=== PATIENT | male | born 1945 | race Caucasian/White ===

== ENCOUNTER 2017-02-09 12:03 | Inpatient (IN) | payer OTHER, MEDICARE ==
[~2017-02-09] VITALS: Ht 180.3 cm; Wt 90.7 kg
[~2017-02-09 12:03] MED LIST: ASPIRIN EC81 M1 PO; FUROSEMIDE40 M1 PO; METOPROLOL SUCC50 M2 PO; PRINIVIL20 M1 PO; ROCALTROL0.25 MC1 PO; SIMVASTATIN20 M2 PO; SODIUM BICARBO650 M1 PO; VITAMIN D31000 UNI1 PO
--- NOTE | 2017-02-09 12:10 | NUR ---
PT TO ED FOR C/C OF WATERY STOOLS X 1 WEEK "I THINK I HAVE A HEMORRHOID, I CONSTANTLY KEEP LEAKING WATERY STOOL AND WHEN I TRIED TO GO I CAN'T GO." PT DENIES NAUSEA OR VOMITING, BRB AND DARK RED BLOOD IN STOOLS A COUPLE OF DAYS AGO.
--- NOTE | 2017-02-09 12:31 | ED GI/GU/ABDOMINAL COMPLAINT ---
History of Present Illness General Chief Complaint: General Adult Stated Complaint: WEAKNESS, EXTREME WEIGHTLOSS, ABCESS RECTUM Source: patient Exam Limitations: poor historian Vital Signs & Intake/Output Vital Signs & Intake/Output Vital Signs Date Time Temp Pulse Resp B/P B/P Pulse O2 O2 Flow FiO2 Mean Ox Delivery Rate 02/09 1630 98.3 73 18 110/56 99 Room Air 02/09 1323 Room Air 02/09 1208 98.3 84 15 106/61 98 Room Air Room Air Allergies Coded Allergies: No Known Allergies (02/09/17) Triage Note: PT TO ED FOR C/C OF WATERY STOOLS X 1 WEEK "I THINK I HAVE A HEMORRHOID, I CONSTANTLY KEEP LEAKING WATERY STOOL AND WHEN I TRIED TO GO I CAN'T GO." PT DENIES NAUSEA OR VOMITING, BRB AND DARK RED BLOOD IN STOOLS A COUPLE OF DAYS AGO. Triage Nurses Notes Reviewed? yes Onset: Gradual Duration: getting worse Timing: recent history Quality/Severity: burning, severe Severity Numbers: 7 Radiation: no radiation Activities at Onset: none HPI: PT is a 70-year-old male with a history of long-standing tobacco use which he discontinued in 2014, hypertension, dyslipidemia, chronic kidney disease, chronic anemia secondary hyperparathyroidism, previous diastolic heart failure secondary to diastolic dysfunction from his long-standing hypertension with left ventricular hypertrophy who is a poor historian who presents emergency room with an unknown duration of rectal discomfort and pain. Patient states that he has not had a bowel movement in approximately 7-10 days. Patient also has complaint of decreased by mouth intake and weight loss. Patient does state that approximately 10 days ago he did have bright red blood with bowel movements however this has not stopped. Patient denies any fevers but does have chills. Denies any chest pain shortness of breath cough abdominal pain nausea vomiting dysuria hematuria. (MARITZA HERNANDEZ,IRAIDA) Reconcile Medications Aspirin (Ecotrin*) 81 MG TABLET.DR 1 TAB PO DAILY HEART/BLOOD (Reported) Calcitriol (Rocaltrol) 0.25 MCG CAPSULE 1 CAP PO DAILY SUPPLEMENT (Reported) Cholecalciferol (Vitamin D3) (Vitamin D3) 1,000 UNIT CAPSULE 1 CAP PO DAILY VITAMIN SUPPORT (Reported) Furosemide 40 MG TABLET 1 TAB PO Saturday DIURETIC (Reported) Lisinopril (Prinivil) 20 MG TABLET 1 TAB PO DAILY BP (Reported) Metoprolol Succinate 50 MG TAB.ER.24H 1.5 TAB PO DAILY BP (Reported) Simvastatin (Simvastatin*) 20 MG TABLET 1 TAB PO QPM CHOLESTEROL (Reported) Sodium Bicarbonate 650 MG TABLET 2 TAB PO DAILY ANTACID (Reported) (CHARLENE STANLEY,SHELBIE Dillard) Past History Travel History Traveled to [place] past 21 day No Medical History Any Pertinent Medical History? 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 No (IRAIDA AMIN) Review of Systems Review of Systems Constitutional: Reports: see HPI, chills. EENTM: Reports: no symptoms. Respiratory: Reports: no symptoms. Cardiovascular: Reports: no symptoms. GI: Reports: see HPI, constipation. Genitourinary: Reports: no symptoms. Musculoskeletal: Reports: no symptoms. Skin: Reports: see HPI. Neurological/Psychological: Reports: no symptoms. Hematologic/Endocrine: Reports: bleeding. Immunologic/Allergic: Reports: no symptoms. All Other Systems: Reviewed and Negative (IRAIDA AMIN) Physical Exam Physical Exam General Appearance: no apparent distress, alert, comfortable Gastrointestinal: normal bowel sounds, soft, non-tender, no organomegaly Rectal: normal rectal tone, heme negative stool, BROWN STOOL Comments: HEENT: Normal EENT exam Neck: Supple, no lymphadenopathy, normal range of motion without pain or tenderness Back: Nontender, no CVA tenderness Cardiovascular: Regular rate and rhythms no murmurs rubs or gallops, normal JVP Respiratory: Chest nontender. No respiratory distress.breath sounds clear to auscultation bilaterally Abdomen: Soft, nontender nondistended, no appreciable organomegaly. Normal bowel sounds. No ascites Extremity: No edema, no calf tenderness to palpation, normal and equal pulses. Neuro: Alert oriented x3, motor sensory normal, Skin: Noted perirectal approximate 10 cm in diameter of erythema warmth and tenderness with fluctuance noted no active discharge Psych: Mood and affect is normal, memory and judgment is normal. Core Measures ACS in differential dx? No Severe Sepsis Present: No Septic Shock Present: No (MARITZA HERNANDEZ,IRAIDA) Progress Differential Diagnosis: appendicitis, biliary colic, bowel obstruction, colon cancer, cholecystitis, diverticulitis, gastritis, hepatitis, hernia, hemorrhoids , ischemic bowel, inflamm bowel dis, pancreatitis, prostatitis, peptic ulcer, perforated viscous, pyelonephritis, SBO, urinary retention, urethritis, UTI/ pyelo, RECTAL ABSCESS, CELLULITIS Plan of Care: Orders Procedure Date/time Status Nothing by Mouth 02/10 B Active CBC WITHOUT DIFFERENTIAL 02/10 600 Active BASIC ELECTROLYTES PLUS BUN&CR 02/10 600 Active TRC EVALUATION (GEN) 02/09 1639 Active PT Evaluate & Treat 02/09 1639 Active Pathway - chart 02/09 1639 Active House Staff 02/09 1639 Active Code Status 02/09 1639 Active TYPE & SCREEN (NOT X-MATCH) 02/09 1639 Active Saline Lock 02/09 1601 Active Misc Message 02/09 1601 Active ED Holding Orders 02/09 1601 Active Vital Signs 02/09 1601 Active Activity/Ambulation 02/09 1601 Active Code Status 02/09 1601 Complete Admit to inpatient 02/09 1533 Active Patient Data 02/09 1533 Active EKG 02/09 1520 Active Intake & Output 02/09 1423 Active VIT D 25 HYDROXY 02/09 1317 Active URIC ACID 02/09 1317 Active THYROID STIMULATING HORMONE 02/09 1317 Active VITAMIN B12 02/09 1317 Active CULTURE,URINE 02/09 1308 Active BLOOD CULTURE 02/09 1308 Active URINALYSIS 02/09 1308 Complete PARTIAL THROMBOPLASTIN TIME 02/09 1308 Complete PROTHROMBIN TIME 02/09 1308 Complete LACTIC ACID 02/09 1308 Active COMPREHENSIVE METABOLIC PANEL 02/09 1308 Active CBC WITHOUT DIFFERENTIAL 02/09 1308 Complete TYPE & SCREEN (NOT X-MATCH) 02/09 1308 Complete XRY-WRIST 2 VIEWS LEFT 02/09 UNK Active Lab Add-on Test 02/09 UNK Active VTE Mechanical Prophylaxis 02/09 UNK Active Vital Signs 02/09 UNK Active Intake & Output 02/09 UNK Active Hemoccult 02/09 UNK Active Activity/Ambulation 02/09 UNK Active Current Medications Sig/Amy Start time Last Medication Dose Stop Time Status Admin Atorvastatin Calcium 10 MG 1700 02/10 1700 AC (Lipitor) Aspirin Buffered 81 MG DAILY 02/10 1000 AC (Ecotrin) Calcitriol 0.25 MCG DAILY 02/10 1000 AC (Rocaltrol 0.25 Mcg Cap) Cholecalciferol 1,000 IU DAILY 02/10 1000 AC (Vitamin D) Ampicillin Sodium/ 1,500 MG Q12H 02/10 0200 AC Sulbactam Sodium (Unasyn) Sodium Chloride 100 ML (Normal Saline 0.9%) Sodium Bicarbonate 325 MG 4 TIMES/DAY 02/09 1800 AC (Sodium Bicarb 325MG Tab) Acetaminophen 650 MG Q6P PRN 02/09 1630 AC (Tylenol) Acetaminophen 1,000 MG Q6P PRN 02/09 1630 AC (Ofirmev) Sodium Chloride 1,000 ML .Q20H 02/09 1630 AC (Normal Saline 0.9%) 02/10 1229 Laboratory Tests 02/09/17 1608: Lactic Acid Cancelled 02/09/17 1540: Urine Color YEL, Urine Clarity HAZY H, Urine pH 7.5, Ur Specific [place] 1.015, Urine Protein TRACE H, Urine Ketones NEG, Urine Nitrite NEG, Urine Bilirubin NEG, Urine Urobilinogen 0.2, Ur Leukocyte Esterase MOD H, Ur Microscopic SEDIMENT EXAMINED, Urine RBC 15-25 H, Urine WBC 5-10 H, Ur Epithelial Cells RARE, Urine Bacteria MOD H, Urine Hemoglobin MOD H, Urine Glucose NEG 02/09/17 1317: Anion Gap 13, Estimated GFR 15 L, BUN/Creatinine Ratio 19.0, Glucose 86, Lactic Acid 1.0, Uric Acid 14.2 H, Calcium 9.1, Total Bilirubin 0.4, AST 8 L, ALT 22, Alkaline Phosphatase 64, Total Protein 6.4, Albumin 2.8 L, Globulin 3.6, Albumin/Globulin Ratio 0.8 L, Vitamin B12 Pending, 25-OH Vitamin D Total Pending, TSH Pending, PT 15.0 H, INR 1.43 H, APTT 32, CBC w Diff NO MAN DIFF REQ, RBC 2.98 L, MCV 83.6, MCH 26.7 L, RDW 16.6 H, MPV 6.8 L, Gran % 74.6, Lymphocytes % 14.7 L, Monocytes % 8.3, Eosinophils % 1.7, Basophils % 0.7, Absolute Granulocytes 8.8 H, Absolute Lymphocytes 1.7, Absolute Monocytes 1.0 H, Absolute Eosinophils 0.2, Absolute Basophils 0.1, PUBS MCHC 32.0 L Microbiology 02/09 1540 URINE ROUT: Urine Culture - RECD 02/09 1327 BLOOD: Blood Culture - RECD 02/09 1320 BLOOD: Blood Culture - RECD Patient on initial examination has concerns of cellulitis and abscess of the rectal and perirectal region. Patient was administered prophylactic Unasyn in the ER. Patient resting comfortably at bedside however he is complaining of burning rectal pain patient was administered IV morphine Dr. Johnson was aware of patient's admission who advised me to consult colorectal and which I discussed patient with Dr. MEJIA in which she is aware of patient's admission and will consult. Patient will be admitted to medicine for concerns of cellulitis patient will be administered magnesium citrate for concerns of fecal impaction however at this time a Fleet enema would be contraindicated. Surgical PA also will consult patient (MARITZA HERNANDEZ,IRAIDA) Diagnostic Imaging: Viewed by Me: CT Scan. Radiology Impression: SEE COMMENTS Initial ED EK BPM, NSR Prior EKG: unchanged Comments: PATIENT: JOSE WRIGHT PRESENT AGE: 71 PATIENT ACCOUNT NO: [id number] : 44 LOCATION: [facility] ORDERING PHYSICIAN: IRAIDA HERNANDEZ SERVICE DATE: 02/09/17 EXAM TYPE: CAT - CT ABD & PELVIS W/O IV CONTRAS EXAMINATION: CT ABDOMEN AND PELVIS WITHOUT CONTRAST CLINICAL INFORMATION: Rectal abscess, cellulitis of rectum COMPARISON: 06/13/2011 CT scan TECHNIQUE: Multidetector volumetric imaging was performed from the superior aspect of the liver through the pubic symphysis. Sagittal and coronal reformatted images were obtained on the technologist's workstation. DLP: 373.58 mGy-cm FINDINGS: LUNG BASES: Limited images of lower thorax demonstrates linear elongated opacities in the right lower lobe with extension toward the pleural surface, similar to 2011 CT scan and can represent scar versus chronic atelectasis. The visualized lung bases are otherwise clear. The noncontrast images of the abdomen and pelvis demonstrate: LIVER, GALLBLADDER, AND BILIARY TREE: The liver is normal in size, shape, and attenuation. No biliary ductal dilatation is present. The gallbladder is unremarkable with no evidence of radiopaque gallstones, gallbladder wall thickening, or obvious pericholecystic inflammatory changes. PANCREAS: Unremarkable. SPLEEN: Unremarkable. ADRENAL GLANDS: Unremarkable. KIDNEYS AND URETERS: The kidneys are normal in size, shape. No hydronephrosis, hydroureter seen. No perinephric stranding. There is a 2.0 cm stone in the lower pole calyces of the right kidney without obstruction. It is unchanged. There is a 2.3 cm exophytic left renal cortical fluid density lesion, likely a cyst. It is increased in size. There is a 2.8 cm left renal cortical cyst in the mid part of the left kidney. It is increased in size. There is a 2.3 cm slightly heterogeneous hypoechoic dense lesion in the lower pole cortex of the left kidney. It is unchanged in size. It can represent a renal cyst as well. No left renal stone. BLADDER: Unremarkable. GASTROINTESTINAL TRACT: There is large amount of stool in the rectum with mild distention of the rectum, suggestive of fecal impaction. There is mild soft tissue stranding behind the rectum, in the presacral region, better seen on sagittal images 62. The rectal wall thickness is within normal limits. No definite perirectal abscess is seen. No extraluminal air. Mild to moderate diverticular disease of the sigmoid colon noted. No CT evidence of acute diverticulitis. The appendix is visualized and without evidence of acute appendicitis. The small bowel loops are not dilated. ABDOMINAL WALL: No significant hernia is appreciated. LYMPH NODES: Normal. VASCULAR: There is mild aneurysmal dilatation of the infrarenal abdominal aorta with maximal transverse diameter of 3.2 cm. It has increased from 3.1 cm in June 2011. Advanced atherosclerotic calcifications of the abdominal aorta and iliac arteries seen. PELVIC VISCERA: Unremarkable. OSSEOUS STRUCTURES: Degenerative changes of the lower lumbar spine predominantly involving the facet joints at L4-L5 and L5-S1 noted. IMPRESSION: The study is somehow limited for evaluation of proctitis/abscess due to lack of intravenous contrast. Presence of large amount of stool in the rectum with distention of the rectum up to 6 cm in transverse diameter suggest fecal impaction. There are mild inflammatory changes posterior to the rectum, in the presacral region. No perirectal abscess is seen. The rectal wall thickness is within normal limits. Right renal stone. Left renal cortical cysts. Atherosclerosis and mild aneurysmal dilatation of infrarenal abdominal aorta. DICTATED BY: FLORINDA DORANTES MD DATE/TIME DICTATED:02/09/171438 SKATE MAKER:NORMAN DATE/TIME TRANSCRIBED:02/09/171438 (IRAIDA AMIN) Departure Departure Disposition: STILL A PATIENT Condition: Stable Clinical Impression Primary Impression: Cellulitis of rectal area Secondary Impressions: Anemia, Chronic renal failure, Fecal impaction Referrals: MAEVE ALVARADO (PCP/Family) Departure Forms: Customer Survey General Discharge Information Admission Note Spoke With: LUCIANO STANLEY,BORIS Davenport Documentation of Exam: Documentation of any treatments & extenuating circumstances including Concerns Regarding Discharge (functional status, medication knowledge or non-compliance, living conditions, etc.) that warrant an admission rather than observation: [ Discussed patient with Dr. WOLF who agrees with general medicine admission for concerns of rectal/perirectal cellulitis constipation fecal impaction. Patient requires colorectal consultation, bowel promotion medication ,repeat labs, IV antibiotics and possible colonoscopy and GI consultation. Outpatient treatment at this time would be medically harmful] (IRAIDA AMIN) Psych Admission Note Psychiatric Admission: I have seen and evaluated JOSE WRIGHT SR. I have also reviewed all the pertinent lab results and diagnostic results. JOSE WRIGHT SR will be admitted to our inpatient Psychiatric unit for treatment and care. PA/PUBLIC HOUSING INTERVIEWER Co-Sign Statement Statement: ED Attending supervision documentation- [X] I saw and evaluated the patient. I have also reviewed all the pertinent lab results and diagnostic results. I agree with the findings and the plan of care as documented in the PA's/PUBLIC HOUSING INTERVIEWER's documentation. [X] I have reviewed the ED Record and agree with the PA's/PUBLIC HOUSING INTERVIEWER's documentation. [] Additions or exceptions (if any) to the PAs/PUBLIC HOUSING INTERVIEWER's note and plan are summarized below: [] (CHARLENE STANLEY,SHELBIE Dillard)
--- NOTE | 2017-02-09 13:21 | NUR ---
PT EVALUATED BY DAVID SALAS. BLOOD DRAWN AND SENT TO [facility]. IV EST RF G20.
[2017-02-09 13:32] LABS: ABSOLUTE BASOPHIL COUNT 0.1 /CUMM (0.0-0.2); ABSOLUTE EOSINOPHIL COUNT 0.2 /CUMM (0.0-0.7); ABSOLUTE GRANULOCYTE CT 8.8 /CUMM (1.4-6.5); ABSOLUTE LYMPH COUNT 1.7 /CUMM (1.2-3.4); BASOPHIL % 0.7 % (0.0-2.0); EOSINOPHIL % 1.7 % (0-5); GRANULOCYTE % 74.6 % (42.2-75.2); HEMATOCRIT 24.9 % (42-52); MEAN CORPUSCULAR HGB 26.7 PG (27.0-31.0); MEAN CORPUSCULAR VOLUME 83.6 FL (80.0-94.0); MEAN PLATELET VOLUME 6.8 FL (7.4-10.4); PLATELET COUNT 622 /CUMM (130-400); RBC DISTRIBUTION WIDTH 16.6 % (11.5-14.5); RED BLOOD CELL CT 2.98 /CUMM (4.70-6.10); WHITE BLOOD CELL COUNT 11.8 /CUMM (4.8-10.8)
--- NOTE | 2017-02-09 13:33 | NUR ---
PT MEDICATED WITH MORPHINE PER EMAR. NS INFUSING PER EMAR.
[2017-02-09 13:43] LABS: PTT 32 SEC (25-37)
--- NOTE | 2017-02-09 14:00 | NUR ---
PT TRANSPORTED OFF UNIT IN STABLE CONDITION TO CT
--- NOTE | 2017-02-09 14:13 | NUR ---
PT TRANSPORTED BACK TO IN STABLE CONDITION. MONITORING MAINTAINED
--- NOTE | 2017-02-09 14:24 | NUR ---
UNISYN INFUSING ORDERED.
--- NOTE | 2017-02-09 15:02 | CT SCAN REPORT ---
EXAMINATION: CT ABDOMEN AND PELVIS WITHOUT CONTRAST CLINICAL INFORMATION: Rectal abscess, cellulitis of rectum COMPARISON: 06/13/2011 CT scan TECHNIQUE: Multidetector volumetric imaging was performed from the superior aspect of the liver through the pubic symphysis. Sagittal and coronal reformatted images were obtained on the technologist's workstation. DLP: 373.58 mGy-cm FINDINGS: LUNG BASES: Limited images of lower thorax demonstrates linear elongated opacities in the right lower lobe with extension toward the pleural surface, similar to 2011 CT scan and can represent scar versus chronic atelectasis. The visualized lung bases are otherwise clear. The noncontrast images of the abdomen and pelvis demonstrate: LIVER, GALLBLADDER, AND BILIARY TREE: The liver is normal in size, shape, and attenuation. No biliary ductal dilatation is present. The gallbladder is unremarkable with no evidence of radiopaque gallstones, gallbladder wall thickening, or obvious pericholecystic inflammatory changes. PANCREAS: Unremarkable. SPLEEN: Unremarkable. ADRENAL GLANDS: Unremarkable. KIDNEYS AND URETERS: The kidneys are normal in size, shape. No hydronephrosis, hydroureter seen. No perinephric stranding. There is a 2.0 cm stone in the lower pole calyces of the right kidney without obstruction. It is unchanged. There is a 2.3 cm exophytic left renal cortical fluid density lesion, likely a cyst. It is increased in size. There is a 2.8 cm left renal cortical cyst in the mid part of the left kidney. It is increased in size. There is a 2.3 cm slightly heterogeneous hypoechoic dense lesion in the lower pole cortex of the left kidney. It is unchanged in size. It can represent a renal cyst as well. No left renal stone. BLADDER: Unremarkable. GASTROINTESTINAL TRACT: There is large amount of stool in the rectum with mild distention of the rectum, suggestive of fecal impaction. There is mild soft tissue stranding behind the rectum, in the presacral region, better seen on sagittal images 62. The rectal wall thickness is within normal limits. No definite perirectal abscess is seen. No extraluminal air. Mild to moderate diverticular disease of the sigmoid colon noted. No CT evidence of acute diverticulitis. The appendix is visualized and without evidence of acute appendicitis. The small bowel loops are not dilated. ABDOMINAL WALL: No significant hernia is appreciated. LYMPH NODES: Normal. VASCULAR: There is mild aneurysmal dilatation of the infrarenal abdominal aorta with maximal transverse diameter of 3.2 cm. It has increased from 3.1 cm in June 2011. Advanced atherosclerotic calcifications of the abdominal aorta and iliac arteries seen. PELVIC VISCERA: Unremarkable. OSSEOUS STRUCTURES: Degenerative changes of the lower lumbar spine predominantly involving the facet joints at L4-L5 and L5-S1 noted. IMPRESSION: The study is somehow limited for evaluation of proctitis/abscess due to lack of intravenous contrast. Presence of large amount of stool in the rectum with distention of the rectum up to 6 cm in transverse diameter suggest fecal impaction. There are mild inflammatory changes posterior to the rectum, in the presacral region. No perirectal abscess is seen. The rectal wall thickness is within normal limits. Right renal stone. Left renal cortical cysts. Atherosclerosis and mild aneurysmal dilatation of infrarenal abdominal aorta.
--- NOTE | 2017-02-09 15:11 | PN- General Surgery ---
Surgical Brief Attending Note Brief Attending Note: Patient seen and examined. He has extensive perirectal fistula, complex without abscess in need of emergent drainage. There is fecal impaction which should be addressed with enemas. There is moderate anemia with h/o blood in stool. He requires an extensive anorectal evaluation for which I will defer to Colorectal Surgery.
--- NOTE | 2017-02-09 16:02 | NUR ---
HOUSE STAFF AT BEDSIDE.
--- NOTE | 2017-02-09 16:07 | NUR ---
Emergency Dept UC Admit Note: To be admitted to [facility] by DR WOLF with RECTAL CELLULITIS as the diagnosis, to [facility] location. Nursing Statistical Modeler and admitting notified 02/09/17 at 1538 PT WILL GO TO ROOM 201-1
--- NOTE | 2017-02-09 16:45 | NUR ---
PT CONSUMED MAGNESIUM CITRATE ORDERED.
--- NOTE | 2017-02-09 16:49 | PN- Att Addend ---
Attending MD Review Statement Attending Statement Attending MD Statement: examined this patient, discuss w/resident/PA/RESEARCH CONSULTANT, agreed w/resident/PA/RESEARCH CONSULTANT, discussed with family, reviewed EMR data (avail), discussed w/ nursing Attending Assessment/Plan: Laboratory Tests 02/09/17 1608: Lactic Acid Cancelled 02/09/17 1540: Urine Color YEL, Urine Clarity HAZY H, Urine pH 7.5, Ur Specific [place] 1.015, Urine Protein TRACE H, Urine Ketones NEG, Urine Nitrite NEG, Urine Bilirubin NEG, Urine Urobilinogen 0.2, Ur Leukocyte Esterase MOD H, Ur Microscopic SEDIMENT EXAMINED, Urine RBC 15-25 H, Urine WBC 5-10 H, Ur Epithelial Cells RARE, Urine Bacteria MOD H, Urine Hemoglobin MOD H, Urine Glucose NEG 02/09/17 1317: Anion Gap 13, Estimated GFR 15 L, BUN/Creatinine Ratio 19.0, Glucose 86, Lactic Acid 1.0, Calcium 9.1, Total Bilirubin 0.4, AST 8 L, ALT 22, Alkaline Phosphatase 64, Total Protein 6.4, Albumin 2.8 L, Globulin 3.6, Albumin/ Globulin Ratio 0.8 L, PT 15.0 H, INR 1.43 H, APTT 32, CBC w Diff NO MAN DIFF REQ, RBC 2.98 L, MCV 83.6, MCH 26.7 L, RDW 16.6 H, MPV 6.8 L, Gran % 74.6, Lymphocytes % 14.7 L, Monocytes % 8.3, Eosinophils % 1.7, Basophils % 0.7, Absolute Granulocytes 8.8 H, Absolute Lymphocytes 1.7, Absolute Monocytes 1.0 H, Absolute Eosinophils 0.2, Absolute Basophils 0.1, PUBS MCHC 32.0 L Vital Signs Date Time Temp Pulse Resp B/P B/P Pulse O2 O2 Flow FiO2 Mean Ox Delivery Rate 02/09 1630 98.3 73 18 110/56 99 Room Air 02/09 1323 Room Air 02/09 1208 98.3 84 15 106/61 98 Room Air Room Air 71 yr old male with pmh of CKD stage 4 f/u with Dr Mistry, Anemia, HTN, HLD presented with chief complaint of constipation for 1.5 weeks , pain in anal area for 1-2 weeks, loss of appetite and wt loss going on for few months. History obtained from patinet and son. Pt was a smoker and quit 2 years ago, smoked 1 PPD for about 55 years. Admit for severe constipation and cellulitis perianal area. Seen by surgery. Will order bowel regimen for constipation. IV unasyn for cellulitis. Will get cxr given his smoking history and wt loss. Pt never had colonoscopy. Cannot do ct with contrast as pt has CKD. d/w pt and pts son at bedside the care plan.
--- NOTE | 2017-02-09 16:50 | Admission Certification ---
Admission Certification Certification Statement - As attending physician, I certify that at the time of - admission, based on clinical presentation, severity of - symptoms, need for further diagnostic testing and - therapeutic interventions, and risk of adverse outcomes - without in-hospital treatment, in my clinical assessment, - this patient requires an acute hospital stay for a minimum - of two nights or longer. I have also considered psychsocial - factors such as support system, advanced age, financial - issues, cognitive issues, and failed out-patient treatments, - past re-admission history, safety of patient, and lack of - compliance as applicable. Specific rationale supporting this admission is: cellulits perianal area, severe constipation.
--- NOTE | 2017-02-09 17:02 | NUR ---
REPORT GIVEN TO NELSON RN ON 2NB RM 201-1.
--- NOTE | 2017-02-09 17:09 | History & Physical ---
General Information and HPI MD Statement: I have seen and personally examined JOSE WRIGHT SR and documented this H&P. The patient is a 71 year old M who presented with a patient stated chief complaint of perirectal pain. Source of Information: patient, family Exam Limitations: clinical condition History of Present Illness: Mr. Wright is a 70-year-old gentleman with approximately [id number] smoking history, quit 2 years ago, hypertension, hyperlipidemia, chronic kidney disease- patient of Dr. Mistry, chronic anemia, stage II diastolic heart failure per echo done in 2010 who presents to [facility] ED with several month history of perirectal and rectal discomfort and pain, accompanied by blood per rectum, ranging anywhere from spotting of the underwear to bloodsoaked. About a month ago, patient started experiencing loose watery stools, denies any recent travel, no associated fevers or chills, nausea or vomiting. He further denied any sick contacts around him at that time or any outside consumption of food. The patient later started experiencing constipation, stating his last bowel movement was approximately 10 days ago. Patient is not the best informant, and part of his history was obtained from his son at bedside who lacked full insight into patient's daily activities. Additionally, patient has experienced worsening weakness over past several months, lack of appetite and reported weight loss. Of note, patient has never had colonoscopy in the past. He denies any B symptoms. He further denies any family history of malignancies. His primary reason for the visit to the ED was perirectal pain which he described as sharp and prolonged period of constipation. Other systems reviewed and negative, exceptions above. Allergies/Medications Allergies: Coded Allergies: No Known Allergies (02/09/17) Home Med list Aspirin (Ecotrin*) 81 MG TABLET.DR 1 TAB PO DAILY HEART/BLOOD (Reported) Calcitriol (Rocaltrol) 0.25 MCG CAPSULE 1 CAP PO DAILY SUPPLEMENT (Reported) Cholecalciferol (Vitamin D3) (Vitamin D3) 1,000 UNIT CAPSULE 1 CAP PO DAILY VITAMIN SUPPORT (Reported) Furosemide 40 MG TABLET 1 TAB PO Saturday DIURETIC (Reported) Lisinopril (Prinivil) 20 MG TABLET 1 TAB PO DAILY BP (Reported) Metoprolol Succinate 50 MG TAB.ER.24H 1.5 TAB PO DAILY BP (Reported) Simvastatin (Simvastatin*) 20 MG TABLET 1 TAB PO QPM CHOLESTEROL (Reported) Sodium Bicarbonate 650 MG TABLET 2 TAB PO DAILY ANTACID (Reported) Compliance With Home Meds: GOOD Past History Travel History Traveled to [place] past 21 day No Medical History Neurological: NONE EENT: NONE Cardiovascular: CHF, hypertension Respiratory: NONE Gastrointestinal: NONE Hepatic: NONE Renal: chronic kidney disease Musculoskeletal: NONE Psychiatric: NONE Endocrine: NONE Blood Disorders: NONE 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 Exam & Diagnostic Data Last 24 Hrs of Vital Signs/I&O Vital Signs Date Time Temp Pulse Resp B/P B/P Pulse O2 O2 Flow FiO2 Mean Ox Delivery Rate 02/09 1630 98.3 73 18 110/56 99 Room Air 02/09 1323 Room Air 02/09 1208 98.3 84 15 106/61 98 Room Air Room Air Intake & Output 02/09 1600 02/09 0800 02/09 0000 Intake Total 500 Output Total Balance 500 Intake, IV 500 Patient 200 lb Weight Weight Reported by Patient Measurement Method Physical Exam General Appearance Alert, Oriented X3, Cooperative Skin perirectal area examined and noted for areas of erythema, with tenderness but without warmth, skin breakdowns noted. Neck Supple, No JVD Cardiovascular Regular Rate, Normal S1, Normal S2 Lungs Clear to Auscultation, Normal Air Movement Abdomen Normal Bowel Sounds, Soft, No Tenderness Neurological Strength at 5/5 X4 Ext Extremities No Cyanosis, No Edema, clubbing noted bilaterally Last 24 Hrs of Labs/Matt: Laboratory Tests 02/09/17 1608: Lactic Acid Cancelled 02/09/17 1540: Urine Color YEL, Urine Clarity HAZY H, Urine pH 7.5, Ur Specific [place] 1.015, Urine Protein TRACE H, Urine Ketones NEG, Urine Nitrite NEG, Urine Bilirubin NEG, Urine Urobilinogen 0.2, Ur Leukocyte Esterase MOD H, Ur Microscopic SEDIMENT EXAMINED, Urine RBC 15-25 H, Urine WBC 5-10 H, Ur Epithelial Cells RARE, Urine Bacteria MOD H, Urine Hemoglobin MOD H, Urine Glucose NEG 02/09/17 1317: Anion Gap 13, Estimated GFR 15 L, BUN/Creatinine Ratio 19.0, Glucose 86, Lactic Acid 1.0, Calcium 9.1, Total Bilirubin 0.4, AST 8 L, ALT 22, Alkaline Phosphatase 64, Total Protein 6.4, Albumin 2.8 L, Globulin 3.6, Albumin/ Globulin Ratio 0.8 L, PT 15.0 H, INR 1.43 H, APTT 32, CBC w Diff NO MAN DIFF REQ, RBC 2.98 L, MCV 83.6, MCH 26.7 L, RDW 16.6 H, MPV 6.8 L, Gran % 74.6, Lymphocytes % 14.7 L, Monocytes % 8.3, Eosinophils % 1.7, Basophils % 0.7, Absolute Granulocytes 8.8 H, Absolute Lymphocytes 1.7, Absolute Monocytes 1.0 H, Absolute Eosinophils 0.2, Absolute Basophils 0.1, PUBS MCHC 32.0 L Microbiology 02/09 1540 URINE ROUT: Urine Culture - RECD 02/09 1327 BLOOD: Blood Culture - RECD 02/09 1320 BLOOD: Blood Culture - RECD Assessment/Plan Assessment: 71-year-old gentleman with extensive past history, presents to the ED with extensive perirectal fistula, no evidence of abscess on CT, found to have fecal impaction and severe constipation, to be admitted to general medicine floors for resolution of his constipation and possible perirectal cellulitis. 1. Perirectal pain: Proctitis may be a possibility. Less likely cellulitis, given lack of fevers/high white count and lack of warmth in the suspicious erythematous area. Quite possibly could represent anorectal fistula, which requires surgical intervention, alert CRsurgery. CT scan demonstrative of fecal impaction, for which the patient will receive tap water or soapsuds enemas. If lack of resolution of constipation, patient may benefit from sucralfate enemas. We'll continue to monitor. Given extensive fecal impaction, possibility of stercoral colitis cannot be entirely ruled out. Patient reportedly has had episodes of bleeding and has evidence of anemia on labs. Not uncommon for fecal impaction to cause stercoral ulceration, bleeding and anemia, continue antibiotic treatment, renally dosed at 1.5 gm q6 - which provides appropriate coverage for cellulitis too. Stool softeners and enemas. Type and screen. Pain control with Tylenol. Consult with colorectal surgery. 2. Blood loss anemia: Type and screen. Check Hemoccult. Patient is a candidate for age appropriate cancer screening, which includes colonoscopy( patient has never had one). 3. Left wrist pain: Rule out fracture-left wrist x-ray. Check uric acid, normal calcium noted. May present bony pains secondary to hyperparathyroidism related to chronic kidney disease. 4. Chronic smoker, quit 2 years ago: Qualifies for low-dose CT for lung cancer screening. Proceed with portable chest x-ray for now, CT as an outpatient. 5. Weakness: Multifactorial. Decreased by mouth intake, persistent diarrhea, non-conducive home living environment and iron deficiency-blood loss. Check vitamin D, vitamin B12, TSH. Replenish as needed. Encourage by mouth intake. Careful fluid 1 baG, given history of stage II diastolic dysfunction and CKD5. 6. Thrombocytosis: Likely reactive, in response to blood loss anemia. Continue to monitor. Holidng Lasix and anti-hypertensives. Full code. Mechanical-given anemia and possibility of blood loss. Full liquid diet. Nothing by mouth at midnight, until colorectal evaluation. As Ranked By This Provider Problem List: 1. Fecal impaction Core Measures/Miscellaneous Acute Coronary Syndrome ACS Diagnosis: No Cerebrovascular Accident CVA/TIA Diagnosis: No Congestive Heart Failure CHF Diagnosis: No VTE (View Protocol) VTE Risk Factors: Acute medical illness, Age > 40, Immobility, paresis No [facility] VTE prophylaxis d/t: No contraindications No VTE Pharm Prophylaxis d/t: Active bleeding (Possible) VTE Diagnosis: No VTE Type: NONE VTE Confirmed by (Test): NONE Sepsis (View Protocol) Severe Sepsis Present: No Septic Shock Septic Shock Present: No Miscellaneous Documentation Attending Case Discussed With: LUCIANO STANLEY,BORIS Davenport Primary Care Physician: MAEVE ALVARADO Patient sees these Specialists Dr. Mistry Level of Patient Care: General Medicine
--- NOTE | 2017-02-09 17:18 | RADIOLOGY REPORT ---
EXAMINATION: XR PORTABLE CHEST CLINICAL INFORMATION: Smoking, rule out malignancy COMPARISON: 04/03/2016 TECHNIQUE: Portable frontal view of the chest was obtained. FINDINGS: I would recommend CT chest to exclude a lesion. This is a portable study film. There is right basilar markings which may well be chronic. Small superimposed infiltrate cannot be excluded. Left lung is grossly clear. There is no effusion. No failure. Prominence of the central mediastinum may be due to portable study. IMPRESSION: No convincing evidence for an acute process. To exclude lung malignancy in a patient with high risk I would recommend CT of the chest. This may be done low-dose noncontrast
--- NOTE | 2017-02-09 17:32 | NUR ---
TRANSPORT HERE FOR PT
[2017-02-09 17:38] VITALS: BP 106/60
--- NOTE | 2017-02-09 19:09 | NUR ---
1740 PATIENT ARRIVED TO FLOOR ALERT AND ORIENTED X 3. ON ROOM AIR. DENIES SHORTNESS OF BREATH VITAL SIGNS STABLE. DENIES CHEST PAIN. + PULSES. DENIES NUMBNESS/TINGLING SKIN C/D/I. INDEP W/ SUPERVISION. BOWEL SOUNDS AUDIBLE NO DISCOMFORT NOTED AT THIS TIME. BED LOW AND LOCKED. CALL LIGHT WITHIN REACH. WILL CONTINUE TO MONITOR
--- NOTE | 2017-02-09 20:13 | Cons- General Surgery ---
General Information and HPI Consulting Request Date of Consult: 02/09/17 Requested By: BORIS WOLF MD Reason for Consult: Perianal cellulitis Fecal impaction Source of Information: patient, medical records Exam Limitations: poor historian History of Present Illness: Patient complains of a few weeks history of worsening perinal discomfort. He denies any fevers or chills. Upon further questioning he admits to worsening appetite that he attributes to perianal pain and approximately 50 lbs weight loss. He also states that he occasionally has blood in stool. He has never had colonoscopy. Allergies/Medications Allergies: Coded Allergies: No Known Allergies (02/09/17) Home Med List: Aspirin (Ecotrin*) 81 MG TABLET.DR 1 TAB PO DAILY HEART/BLOOD (Reported) Calcitriol (Rocaltrol) 0.25 MCG CAPSULE 1 CAP PO DAILY SUPPLEMENT (Reported) Cholecalciferol (Vitamin D3) (Vitamin D3) 1,000 UNIT CAPSULE 1 CAP PO DAILY VITAMIN SUPPORT (Reported) Furosemide 40 MG TABLET 1 TAB PO Saturday DIURETIC (Reported) Lisinopril (Prinivil) 20 MG TABLET 1 TAB PO DAILY BP (Reported) Metoprolol Succinate 50 MG TAB.ER.24H 1.5 TAB PO DAILY BP (Reported) Simvastatin (Simvastatin*) 20 MG TABLET 1 TAB PO QPM CHOLESTEROL (Reported) Sodium Bicarbonate 650 MG TABLET 2 TAB PO DAILY ANTACID (Reported) Current Medications: Current Medications Sig/Amy Start time Last Medication Dose Route Stop Time Status Admin Acetaminophen 650 MG Q6P PRN 02/09 1630 AC PO Acetaminophen 1,000 MG Q6P PRN 02/09 1630 AC IV Ampicillin Sodium/ 1,500 MG Q12H 02/10 0200 AC Sulbactam Sodium IV Sodium Chloride 100 ML Ampicillin Sodium/ 0 .STK-MED ONE 02/09 1421 DC Sulbactam Sodium .ROUTE Ampicillin Sodium/ 1,500 MG ONCE ONE 02/09 1400 DC 02/09 Sulbactam Sodium IV 02/09 1429 1423 Sodium Chloride 100 ML Aspirin Buffered 81 MG DAILY 02/10 1000 AC PO Atorvastatin Calcium 10 MG 1700 02/10 1700 AC PO Calcitriol 0.25 MCG DAILY 02/10 1000 AC PO Cholecalciferol 1,000 IU DAILY 02/10 1000 AC PO Magnesium Citrate 300 ML ONE ONE 02/09 1530 DC 02/09 PO 02/09 1531 1557 Morphine Sulfate 0 .STK-MED ONE 02/09 1333 DC .ROUTE Morphine Sulfate 4 MG ONCE ONE 02/09 1315 DC 02/09 IV 02/09 1316 1333 Sodium Bicarbonate 325 MG 4 TIMES/DAY 02/09 1800 AC 02/09 PO 1841 Sodium Chloride 1,000 ML .Q20H 02/09 1630 AC 02/09 IV 02/10 1229 1841 Sodium Chloride 500 ML BOLUS ONE 02/09 1315 DC 02/09 IV 02/09 1414 1333 Past History Medical History Blood Transfusion Hx: No Neurological: NONE EENT: NONE Cardiovascular: CHF, hypertension Respiratory: NONE Gastrointestinal: constipation Hepatic: NONE Renal: chronic kidney disease Musculoskeletal: NONE Psychiatric: NONE Endocrine: NONE Blood Disorders: NONE 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 Home Services at Home: None Primary Language: Tajik Smoking Status: Former Smoker ETOH Use: denies use Illicit Drug Use: denies illicit drug use Review of Systems Review of Systems Constitutional: Reports: unexplained weight loss. Denies: chills, fever. EENTM: Denies: blurred vision, double vision, visual changes, eye pain, eye drainage. Cardiovascular: Denies: chest pain, edema, palpitations. Respiratory: Denies: cough, hemoptysis, orthopnea. GI: Reports: constipation, bloody stool. Denies: abdominal pain, distention, bowel incontinence, melena, vomiting. Genitourinary: Denies: discharge, pain. Musculoskeletal: Denies: no symptoms. Skin: Denies: lesions, moles, rash. Neurological/Psychological: Denies: anxiety, confusion, emotional problems, headache, numbness, tingling, tremors. Hematologic/Endocrine: Denies: bruising, bleeding. Immunologic/Allergic: Denies: splenectomy, HIV/AIDS, lymphadenopathy. Exam & Diagnostic Data Vital Signs and I&O Vital Signs Date Time Temp Pulse Resp B/P B/P Pulse O2 O2 Flow FiO2 Mean Ox Delivery Rate 02/09 1738 97.9 72 18 106/60 97 Room Air 02/09 1630 98.3 73 18 110/56 99 Room Air 02/09 1323 Room Air 02/09 1208 98.3 84 15 106/61 98 Room Air Room Air Intake & Output 02/09 1600 02/09 0800 02/09 0000 02/08 1600 02/08 0800 02/08 0000 Intake Total 500 Output Total Balance 500 Intake, IV 500 Patient 200 lb Weight Weight Reported by Patient Measurement Method Physical Exam General Appearance: no apparent distress, alert, awake, comfortable Head: atraumatic, normal appearance, poor oral hygiene Eyes: Bilateral: PERRL, EOMI. Ears, Nose, Throat: hearing grossly normal, moist mucus membranes Neck: supple, full range of motion Respiratory: normal breath sounds, chest non-tender, no respiratory distress, quiet respiration Cardiovascular: regular rate/rhythm Gastrointestinal: soft, non-tender, no organomegaly Rectal: fecal impaction perianal cellulitis and drainage Back: normal range of motion Extremities: normal inspection, normal range of motion, no edema Neurologic/Psych: awake, alert, oriented x 3 Cranial Nerves: normal speech, PERRL Skin: normal color Last 24 Hours of Labs: Laboratory Tests 02/09 02/09 1608 1540 Chemistry Lactic Acid Cancelled Urines Urine Color (YEL,AMB,STR) YEL Urine Clarity (CLEAR) HAZY H Urine pH (5.0 - 8.0) 7.5 Ur Specific [place] (1.001 - 1.035) 1.015 Urine Protein (NEG,<30 MG/DL) TRACE H Urine Ketones (NEG) NEG Urine Nitrite (NEG) NEG Urine Bilirubin (NEG) NEG Urine Urobilinogen (0.1 - 1.0 EU/dl) 0.2 Ur Leukocyte Esterase (NEG) MOD H Ur Microscopic SEDIMENT EXAMINED Urine RBC (0 - 5 /HPF) 15-25 H Urine WBC (0 - 2 /HPF) 5-10 H Ur Epithelial Cells (NONE,FEW) RARE Urine Bacteria (NEG/NONE) MOD H Urine Hemoglobin (NEG) MOD H Urine Glucose (N MG/DL) NEG 02/09 1317 Chemistry Sodium (137 - 145 mmol/L) 140 Potassium (3.5 - 5.1 mmol/L) 4.6 Chloride (98 - 107 mmol/L) 109 H Carbon Dioxide (22 - 30 mmol/L) 17 L Anion Gap (5 - 16) 13 BUN (9 - 20 mg/dL) 74 H Creatinine (0.7 - 1.2 mg/dL) 3.9 H Estimated GFR (>60 ml/min) 15 L BUN/Creatinine Ratio (7 - 25 %) 19.0 Glucose (65 - 99 mg/dL) 86 Lactic Acid (0.7 - 2.1 mmol/L) 1.0 Uric Acid (3.5 - 8.5 mg/dL) 14.2 H Calcium (8.4 - 10.2 mg/dL) 9.1 Total Bilirubin (0.2 - 1.3 mg/dL) 0.4 AST (17 - 59 U/L) 8 L ALT (21 - 72 U/L) 22 Alkaline Phosphatase (< 127 U/L) 64 Total Protein (6.3 - 8.2 g/dL) 6.4 Albumin (3.5 - 5.0 g/dL) 2.8 L Globulin (1.9 - 4.2 gm/dL) 3.6 Albumin/Globulin Ratio (1.1 - 2.2 %) 0.8 L Vitamin B12 (239 - 931 pg/mL) 322 25-OH Vitamin D Total (30 - 100 ng/ml) Pending TSH (0.270 - 4.200 uIU/mL) 4.070 Coagulation PT (9.4 - 12.5 SEC) 15.0 H INR (0.90 - 1.17) 1.43 H APTT (25 - 37 SEC) 32 Hematology CBC w Diff NO MAN DIFF REQ WBC (4.8 - 10.8 /CUMM) 11.8 H RBC (4.70 - 6.10 /CUMM) 2.98 L Hgb (14.0 - 18.0 G/DL) 8.0 L Hct (42 - 52 %) 24.9 L MCV (80.0 - 94.0 FL) 83.6 MCH (27.0 - 31.0 PG) 26.7 L RDW (11.5 - 14.5 %) 16.6 H Plt Count (130 - 400 /CUMM) 622 H MPV (7.4 - 10.4 FL) 6.8 L Gran % (42.2 - 75.2 %) 74.6 Lymphocytes % (20.5 - 51.1 %) 14.7 L Monocytes % (1.7 - 9.3 %) 8.3 Eosinophils % (0 - 5 %) 1.7 Basophils % (0.0 - 2.0 %) 0.7 Absolute Granulocytes (1.4 - 6.5 /CUMM) 8.8 H Absolute Lymphocytes (1.2 - 3.4 /CUMM) 1.7 Absolute Monocytes (0.10 - 0.60 /CUMM) 1.0 H Absolute Eosinophils (0.0 - 0.7 /CUMM) 0.2 Absolute Basophils (0.0 - 0.2 /CUMM) 0.1 PUBS MCHC (33.0 - 37.0 G/DL) 32.0 L Imaging Results: CT A/P: IMPRESSION: The study is somehow limited for evaluation of proctitis/abscess due to lack of intravenous contrast. Presence of large amount of stool in the rectum with distention of the rectum up to 6 cm in transverse diameter suggest fecal impaction. There are mild inflammatory changes posterior to the rectum, in the presacral region. No perirectal abscess is seen. The rectal wall thickness is within normal limits. Right renal stone. Left renal cortical cysts. Atherosclerosis and mild aneurysmal dilatation of infrarenal abdominal aorta. Assessment/Plan Assessment/Plan A 71 year-old man with multiple comorbidities, including stage IV renal disease, chronic anemia, heme occult positive stools, and HTN was admitted through ER with perianal cellulitis and fecal impation. He is somewhat poor historian, but admits to weight loss, malaise, and poor appetite over the last few months. Of note, he never had colonoscopy. - Recommend keeping patient on clears until impaction resolves - Patient refused manual disimpaction at the bedside stating that it is too uncomfortable - Recommend soap suds enemas qid and gentle BRNUA each time to break up hard stool and stimulate BM - Cont. broad spectrum IV coverage - Patient's perianal tracts are spontaneously draining, recommend sitz baths tid - Will re-evaluate tomorrow for BM and resolution of perianal cellulitis. If there is no improvement, may take patient to OR on Saturday for I&D and disimpaction - Patient will need GI workup as outpatient for anemia and heme positive stools Problem List: 1. GI bleed 2. Acute on chronic renal insufficiency 3. Anemia 4. Cellulitis of rectal area 5. Fecal impaction Consult Acknowledgment - Thank you for your consult request.
--- NOTE | 2017-02-09 21:48 | RADIOLOGY REPORT ---
EXAMINATION: XR WRIST, LEFT CLINICAL INFORMATION: Pain COMPARISON: None TECHNIQUE: Limited 2 views of the left wrist. 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 No convincing evidence for fracture or dislocation on this limited two-view study. IMPRESSION: No acute finding. 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
[2017-02-09 23:59] VITALS: BP 118/66
--- NOTE | 2017-02-10 01:23 | NUR ---
PT HAD LARGE LQUID BROWN INCONTINENT STOOL X2, THEN HAD LARGE BLOODY LIGUID STOOL. PT REPORTS FEELING FINE OTHER THAN STOOOL INCONTINENCE. BP 128/64, HR 86, T 98.8F, O2 95% ON ROOM AIR. DR CALEB HECTOR NOTIFIED OF BLOODY STOOLS. WILL HOLD MIRALAX, SENNA, AND ENEMA PER DR HECTOR. PT HAS REDNESS AND SWELLING AND TENDERNESS TO PERIRECTAL AREA. WILL CONTINUE TO MONITOR PATIENT.
[2017-02-10 06:40] VITALS: BP 110/65
--- NOTE | 2017-02-10 08:00 | NUR ---
NSG NOTE: PATIENT HAD LARGE BLOODY BM THIS AM; VSS; PATIENT ASYMTOMPTOMATIC; AL AWARE AT THIS TIME; WILL CONT TO MONITOR
[2017-02-10 08:41] LABS: ABSOLUTE BASOPHIL COUNT 0.1 /CUMM (0.0-0.2); ABSOLUTE EOSINOPHIL COUNT 0.3 /CUMM (0.0-0.7); ABSOLUTE GRANULOCYTE CT 7.6 /CUMM (1.4-6.5); ABSOLUTE LYMPH COUNT 1.9 /CUMM (1.2-3.4); ABSOLUTE MONOCYTE COUNT 0.8 /CUMM (0.10-0.60); BASOPHIL % 0.8 % (0.0-2.0); EOSINOPHIL % 2.8 % (0-5); GRANULOCYTE % 70.9 % (42.2-75.2); HEMATOCRIT 22.7 % (42-52); MEAN CORPUSCULAR HGB 27.3 PG (27.0-31.0); MEAN CORPUSCULAR HGB CONC 32.6 G/DL (33.0-37.0); MEAN CORPUSCULAR VOLUME 83.9 FL (80.0-94.0); MEAN PLATELET VOLUME 7.1 FL (7.4-10.4); PLATELET COUNT 580 /CUMM (130-400); RBC DISTRIBUTION WIDTH 16.1 % (11.5-14.5); RED BLOOD CELL CT 2.71 /CUMM (4.70-6.10); WHITE BLOOD CELL COUNT 10.7 /CUMM (4.8-10.8)
--- NOTE | 2017-02-10 09:28 | NUR ---
PHYSICAL THERAPY- CONSULT RECEIVED, CHART REVIEWED. PT CURRENTLY INDEPENDENT. ?SURGICAL INTERVENTION FOR THIS ADMISSION. SHOULD MOBILITY STATUS CHANGE DURING COURSE OF ADMISSION, PLEASE RECONSULT. RECOMMEND CONT AMB W/ NSG STAFF TO MAINTAIN MOBILITY.
--- NOTE | 2017-02-10 11:38 | PN- Housestaff ---
Subjective Follow-up For: Rectal cellulitis/fistulas Subjective: I have personally seen and examined the patient today.Patient looks pale but denies any fever, chills, SOB, Chest pain or numbness/ tingling. Reports being uncomfortable because of the fecal impaction but denies any pain. Review of Systems Constitutional: Denies: see HPI. Objective Last 24 Hrs of Vital Signs/I&O Vital Signs Date Time Temp Pulse Resp B/P B/P Pulse O2 O2 Flow FiO2 Mean Ox Delivery Rate 02/10 0640 97.5 71 20 110/65 99 Room Air 02/09 2359 97.7 73 20 118/66 98 Room Air 02/09 2019 Room Air 02/09 1738 97.9 72 18 106/60 97 Room Air 02/09 1630 98.3 73 18 110/56 99 Room Air Intake & Output 02/10 1600 02/10 0800 02/10 0000 Intake Total 400 400 Output Total 1175 300 Balance -775 100 Intake, IV 400 Intake, Oral 0 400 Number 4 1 Bowel Movements Output, Stool 500 Output, Urine 675 300 Patient 200 lb Weight Physical Exam General Appearance: Alert, Oriented X3, Cooperative, No Acute Distress Other Physical Findings: Skin No Rashes HEENT Atraumatic, PERRLA, EOMI Neck Supple, No JVD Cardiovascular Regular Rate, Normal S1, Normal S2, No Murmurs Lungs Clear to Auscultation, Normal Air Movement Abdomen Normal Bowel Sounds, Soft, slight tenderness in LLQ, No Hepatospenomegaly, No Masses Neurological Normal Gait, Normal Speech, Strength at 5/5 X4 Ext, Normal Tone, Sensation Intact Extremities No Clubbing, No Cyanosis, No Edema, Normal Pulses, Normal Capillary Refill Vascular Normal Pulses Current Medications: Current Medications Sig/Amy Start time Last Medication Dose Route Stop Time Status Admin Acetaminophen 650 MG Q6P PRN 02/09 1630 AC 02/10 PO 0658 Acetaminophen 1,000 MG Q6P PRN 02/09 1630 AC IV Ampicillin Sodium/ 1,500 MG Q12H 02/10 0200 AC 02/10 Sulbactam Sodium IV 0145 Sodium Chloride 100 ML Aspirin Buffered 81 MG DAILY 02/10 1000 AC PO Atorvastatin Calcium 10 MG 1700 02/10 1700 AC PO Calcitriol 0.25 MCG DAILY 02/10 1000 AC 02/10 PO 0902 Cholecalciferol 1,000 IU DAILY 02/10 1000 AC 02/10 PO 0902 Ibuprofen 400 MG .STK-MED ONE 02/10 2008 DC PO 02/09 2009 Magnesium Citrate 300 ML ONE ONE 02/09 1530 DC 02/09 PO 02/09 1531 1557 Polyethylene Glycol 17 GM DAILY 02/10 004 AC PO Senna 187 MG AT BEDTIME 02/10 004 AC PO Sodium Bicarbonate 325 MG 4 TIMES/DAY 02/09 1800 AC 02/10 PO 0902 Sodium Chloride 1,000 ML .Q20H 02/09 1630 DC 02/09 IV 02/10 1229 1841 Last 24 Hrs of Lab/Matt Results Last 24 Hrs of Labs/Mics: Laboratory Tests 02/10/17 0605: Anion Gap 9, Estimated GFR 16 L, BUN/Creatinine Ratio 18.7, CBC w Diff NO MAN DIFF REQ, RBC 2.71 L, MCV 83.9, MCH 27.3, RDW 16.1 H, MPV 7.1 L, Gran % 70.9, Lymphocytes % 18.0 L, Monocytes % 7.5, Eosinophils % 2.8, Basophils % 0.8, Absolute Granulocytes 7.6 H, Absolute Lymphocytes 1.9, Absolute Monocytes 0.8 H, Absolute Eosinophils 0.3, Absolute Basophils 0.1, PUBS MCHC 32.6 L 02/09/17 1608: Lactic Acid Cancelled 02/09/17 1540: Urine Color YEL, Urine Clarity HAZY H, Urine pH 7.5, Ur Specific [place] 1.015, Urine Protein TRACE H, Urine Ketones NEG, Urine Nitrite NEG, Urine Bilirubin NEG, Urine Urobilinogen 0.2, Ur Leukocyte Esterase MOD H, Ur Microscopic SEDIMENT EXAMINED, Urine RBC 15-25 H, Urine WBC 5-10 H, Ur Epithelial Cells RARE, Urine Bacteria MOD H, Urine Hemoglobin MOD H, Urine Glucose NEG Microbiology 02/09 1540 URINE ROUT: Urine Culture - RES Assessment/Plan Assessment: 71-year-old gentleman with extensive past history, presents to the ED with extensive perirectal fistula, no evidence of abscess on CT, found to have fecal impaction and severe constipation, to be admitted to general medicine floors for resolution of his constipation and possible perirectal cellulitis. Perirectal pain: Proctitis may be a possibility. Less likely cellulitis, given lack of fevers/high white count and lack of warmth in the suspicious erythematous area. Quite possibly could represent anorectal fistula, which requires surgical intervention, alert CRsurgery. CT scan demonstrative of fecal impaction, for which the patient received tap water/soapsuds enemas. Had a bowel movement along with BRBPR. We'll continue to monitor. Will continue antibiotic treatment, renally dosed at 1.5 gm q6 - which provides appropriate coverage for cellulitis too. Stool softeners and enemas. - Pain control with Tylenol. -Colorectal surgery saw and after discussing with the son, planned to operate on him. 2. Blood loss anemia: Patient had a drop in H&H after having BRBPR. Trasfused 1 unit after type and screen. Patient is a candidate for age appropriate cancer screening, which includes colonoscopy(patient has never had one). 3. Left wrist pain: Rule out fracture-left wrist x-ray. Check uric acid, normal calcium noted. May present bony pains secondary to hyperparathyroidism related to chronic kidney disease. 4. Chronic smoker, quit 2 years ago: Qualifies for low-dose CT for lung cancer screening. Proceed with portable chest x-ray for now, CT as an outpatient. 5. Weakness: Multifactorial. Decreased by mouth intake, persistent diarrhea, non-conducive home living environment and iron deficiency-blood loss. Encourage by mouth intake. Careful fluid 1 baG, given history of stage II diastolic dysfunction and CKD5. 6. Thrombocytosis: Likely reactive, in response to blood loss anemia. Continue to monitor. Holidng Lasix and anti-hypertensives. Full code. Mechanical-given anemia and possibility of blood loss. Full liquid diet. Nothing by mouth at midnight, until colorectal evaluation. Problem List: 1. Fecal impaction 2. Cellulitis of rectal area 3. Anemia Pain Ratin Pain Location: Perirectal area Pain Goal: Pain 4 or less Pain Plan: Pain pathway Tomorrow's Labs & Rationales: CBC (ABLA), BEP (High Cr)
--- NOTE | 2017-02-10 12:15 | PN- Att Addend ---
Attending MD Review Statement Attending Statement Attending MD Statement: examined this patient, discuss w/resident/PA/MARKETING COMMUNICATIONS LEADER, agreed w/resident/PA/MARKETING COMMUNICATIONS LEADER, reviewed EMR data (avail), discussed w/nursing Attending Assessment/Plan: Laboratory Tests 02/10/17 0605: Anion Gap 9, Estimated GFR 16 L, BUN/Creatinine Ratio 18.7, CBC w Diff NO MAN DIFF REQ, RBC 2.71 L, MCV 83.9, MCH 27.3, RDW 16.1 H, MPV 7.1 L, Gran % 70.9, Lymphocytes % 18.0 L, Monocytes % 7.5, Eosinophils % 2.8, Basophils % 0.8, Absolute Granulocytes 7.6 H, Absolute Lymphocytes 1.9, Absolute Monocytes 0.8 H, Absolute Eosinophils 0.3, Absolute Basophils 0.1, PUBS MCHC 32.6 L 02/09/17 1608: Lactic Acid Cancelled 02/09/17 1540: Urine Color YEL, Urine Clarity HAZY H, Urine pH 7.5, Ur Specific [place] 1.015, Urine Protein TRACE H, Urine Ketones NEG, Urine Nitrite NEG, Urine Bilirubin NEG, Urine Urobilinogen 0.2, Ur Leukocyte Esterase MOD H, Ur Microscopic SEDIMENT EXAMINED, Urine RBC 15-25 H, Urine WBC 5-10 H, Ur Epithelial Cells RARE, Urine Bacteria MOD H, Urine Hemoglobin MOD H, Urine Glucose NEG 02/09/17 1317: Anion Gap 13, Estimated GFR 15 L, BUN/Creatinine Ratio 19.0, Glucose 86, Lactic Acid 1.0, Uric Acid 14.2 H, Calcium 9.1, Total Bilirubin 0.4, AST 8 L, ALT 22, Alkaline Phosphatase 64, Total Protein 6.4, Albumin 2.8 L, Globulin 3.6, Albumin/Globulin Ratio 0.8 L, Vitamin B12 322, 25-OH Vitamin D Total 32.1, TSH 4.070, PT 15.0 H, INR 1.43 H, APTT 32, CBC w Diff NO MAN DIFF REQ, RBC 2.98 L , MCV 83.6, MCH 26.7 L, RDW 16.6 H, MPV 6.8 L, Gran % 74.6, Lymphocytes % 14.7 L, Monocytes % 8.3, Eosinophils % 1.7, Basophils % 0.7, Absolute Granulocytes 8.8 H, Absolute Lymphocytes 1.7, Absolute Monocytes 1.0 H, Absolute Eosinophils 0.2, Absolute Basophils 0.1, PUBS MCHC 32.0 L Vital Signs Date Time Temp Pulse Resp B/P B/P Pulse O2 O2 Flow FiO2 Mean Ox Delivery Rate 02/10 0640 97.5 71 20 110/65 99 Room Air 02/09 2359 97.7 73 20 118/66 98 Room Air 02/09 2019 Room Air 02/09 1738 97.9 72 18 106/60 97 Room Air 02/09 1630 98.3 73 18 110/56 99 Room Air 02/09 1323 Room Air 71 yr old male with pmh of CKD stage 4 f/u with Dr Mistry, Anemia, HTN, HLD presented with chief complaint of constipation for 1.5 weeks , pain in anal area for 1-2 weeks, loss of appetite and wt loss going on for few months. History obtained from patinet and son. Pt was a smoker and quit 2 years ago, smoked 1 PPD for about 55 years. Admit for severe constipation and cellulitis perianal area. Seen by surgery. Constipation resolved- had BM last night and also had some BRBPR. IV unasyn for cellulitis. Colorectal surgery saw and will d/w son the surgical plan today. Anemia- secondary to GI bleed- will transfuse 1 U PRBC today and will get GI consult. CXR done - no large masses seen. will need outpt low dose CT scan of chest.
[2017-02-10 14:20] VITALS: BP 122/64
--- NOTE | 2017-02-10 14:54 | NUR ---
NSG NOTE LATE ENTRY: PATIENT LEFT FLOOR AT APPROX 1430 VIA STRETCHER TO OR ACCOMPANIED BY DISTRIBUTION; PATIENT A/OX3; RA; VSS; PRBC COMPLETED AT 1412, VS CHECKED AND DOCUMENTED ON SHEET; PATIENT HAD SMALL EPISODE OF BRIGHT RED BLOOD FROM RECTUM BEFORE TAKEN TO OR NO CLOTS NOTED; PATIENT CLEANED AND PLACED ON INCONTINENCE PADS;
--- NOTE | 2017-02-10 16:09 | Operative Report ---
Operative/Inv Procedure Report Surgery Date: 02/10/17 Name of Procedure: 1. Fecal disimpaction Incision and drainage of perianal abscesses and fistulae Pre-Operative Diagnosis: 1. Chronic anemia 2. Rectal bleeding 3. Fecal impaction 4. Perianal abscesses/fistulae Post-Operative Diagnosis: same Estimated Blood Loss: scant, episode of substantial low GI bleed while in OR Surgeon/Chief Of Pediatric Urology: BOB RENTERIA MD Anesthesia: local monitored anesthesi Drains: 4 setons placed Specimens: fistula tract Complications: none Condition: stable to RR Operative Indication: Patient is a 71-year-old man who sports historian and somewhat noncompliant with his medical care. Patient presented and was admitted through the emergency room yesterday with multiple vague complaints, including perianal discomfort, constipation, and multiple episodes of low GI bleed. All of note, over the patient was Hemoccult positive in the ER, he did not have any blood in the rectal vault any episodes of rectal bleeding until this afternoon when taken to the operating room. According to his family, he also lost 50 pounds in the last few months and has been having poor appetite. Patient is being taken to the operating room for fecal disimpaction and incision and drainage of perianal abscesses. Operative/Procedure Note Note: Patient was taken to the operating room and placed in the supine position on the operating table. Anesthesia was established by the anesthesia team. Patient was repositioned in the lithotomy position with legs in candy canes. At that point the patient had substantial low GI bleed. He remained hemodynamically stable. Additional red blood cells were ordered to be brought to the operating room. Blood clots were evacuated. The timeout was carried out I proceeded with fecal disimpaction, removing a large hard stool ball from the rectal vault. There were additional blood clots more proximal to this to there was no additional bleeding throughout the procedure. The perineum was prepped and draped in the standard surgical fashion. Approximately 15 mL of half percent Marcaine with epinephrine were administered to the perianal skin. There was cellulitis and multiple subcutaneous fistulous tracts. None of them appeared to extend within the anal canal. 2 of the fistulous tracts one on the right side another on the left side were unroofed and curettaged. Additional fistulous openings were connected with setons. Toprol for setons worst placed 2 on the right 2 on the left. All those tracts and small pockets of abscesses were copiously irrigated. The sponge and instrument counts were correct in the end of the procedure. Patient was wakened up and taken to recovery room in stable condition. Findings: Multiple perianal subcutaneous fistulous tacts without apparent extension to the anal canal Low GI bleed Discharge Disposition: Critical Care Unit Additional Comments: GI was contacted. Patient will be getting bowel prep today for colonoscopy tomorrow. Recommend sitz baths 2-3 times daily for perianal debridement and hygiene
--- NOTE | 2017-02-10 18:42 | NUR ---
RECVD PT FROM PACU APPROX 1730. PT DROWSY/O X 3. ON 2L, 100% LUNGS CLEAR. PLACED ON RA, 98%. SR-SB 54-60'S. BP 90'S-110. ABDOMEN SOFT W HPERACTIVE BS W FLATUS. NAUSEA WITH SMALL AMONT OF CLR VOMIT ON ARRIVAL. SUBSIDED W/O INTERVENTION. PT IS NPO. AWAITING GI CONSULTATION. BUTTOCKS HAS LARGE ABD DRESSING WITH SMALL AMT OF SS DRAINAGE. BUTTOCKS/COCCYX AREA EXPOSED IS PINK, BLANCHABLE W 2 PINHOLES IN SKIN. SECONDARY PIV INSERTED, PIVOS PLACED ON BOTH LINES, ICU BUNDLE AND CBC OBTAINED AND SENT. PT ORIENTED TO ROOM AND POC. DENIES PAIN AT THIS TIME AND REMAINS DROWSEY EASILY AROUSABLE.
[2017-02-10 18:46] LABS: ABSOLUTE BASOPHIL COUNT 0 /CUMM (0.0-0.2); ABSOLUTE EOSINOPHIL COUNT 0.2 /CUMM (0.0-0.7); ABSOLUTE GRANULOCYTE CT 8.3 /CUMM (1.4-6.5); ABSOLUTE LYMPH COUNT 2.1 /CUMM (1.2-3.4); ABSOLUTE MONOCYTE COUNT 0.7 /CUMM (0.10-0.60); BASOPHIL % 0.2 % (0.0-2.0); GRANULOCYTE % 73.6 % (42.2-75.2); HEMATOCRIT 23.1 % (42-52); MEAN CORPUSCULAR HGB 26.7 PG (27.0-31.0); MEAN CORPUSCULAR HGB CONC 32.2 G/DL (33.0-37.0); MEAN CORPUSCULAR VOLUME 83.1 FL (80.0-94.0); MEAN PLATELET VOLUME 6.9 FL (7.4-10.4); PLATELET COUNT 497 /CUMM (130-400); RBC DISTRIBUTION WIDTH 17.9 % (11.5-14.5); RED BLOOD CELL CT 2.78 /CUMM (4.70-6.10); WHITE BLOOD CELL COUNT 11.3 /CUMM (4.8-10.8)
--- NOTE | 2017-02-10 19:17 | Event Note ---
Event Note Event Note: pt went to or for disimpaction with h and h of 7.4 and 23.1. Pt transferred to icu for intra operative blood loss. GI called and will follow up
--- NOTE | 2017-02-10 19:29 | NUR ---
H/H 7.4/23.1, 2 U PRBC ORDERED. 1ST UNIT INITIATED (#3). DR MARTINEZ TO BEDSIDE TO ASSESS PT. ORIGINAL SURGICAL DRESSING PULLED DOWN FOR MD TO ASSESS. AREA WAS CLEAN WITH SMALL AMT OF SS DRAINAGE TO DRESSING. NEW DRESSING; FLUFF/ABD APPLIED. PT REPORTS MINIMAL DISCOMFORT.
--- NOTE | 2017-02-10 19:40 | Cons- Gastroenterology ---
General Information and HPI Consulting Request Date of Consult: 02/10/17 Requested By: BOB RENTERIA MD Reason for Consult: Lower GI bleed Source of Information: patient, family, old records Exam Limitations: no limitations History of Present Illness: Patient is a 71-year-old man who is a poor historian. The following information is obtained from his son. Patient lives with his ex- on the third floor. Patient stopped driving 10 years ago and was reasonably mobile up to 3 years ago going to the local election clerk store 2 by small items. Approximately 2-3 years ago he stopped doing that and has been essentially limited to his apartment. Son describes that his father does get out of bed most days but then stays sitting in a chair for almost the entire day. This general decline over the last 4-5 years has been accentuated by further decrease in mobility over the last 4-5 months, and a visible loss and weight. Patient has a [id number] smoking history, quit 2 years ago, hypertension, hyperlipidemia, chronic kidney disease-patient of Dr. Mistry, chronic anemia, stage II diastolic heart failure per echo done in 2010 who presents to [facility] ED with several month history of perirectal and rectal discomfort and pain, accompanied by blood per rectum, ranging anywhere from spotting of the underwear to bloodsoaked. Approximately a month ago, patient started experiencing loose watery stools, denies any recent travel, no associated fevers or chills, nausea or vomiting. He further denied any sick contacts around him at that time or any outside consumption of food. The patient later started experiencing constipation, stating his last bowel movement was approximately 10 days ago. Patient is not the best informant, and part of his history was obtained from his son at bedside who lacked full insight into patient's daily activities. Additionally, patient has experienced worsening weakness over past several months, lack of appetite and reported weight loss. Of note, patient has never had colonoscopy in the past. He denies any B symptoms. He further denies any family history of malignancies. Patient was taken to the OR today. Patient was positioned in the lithotomy position and had substantial low GI bleed. Proceeded with fecal disimpaction, removing a large hard stool ball from the rectal vault. There were additional blood clots more proximal to this to there was no additional bleeding throughout the procedure. The perineum was prepped and draped in the standard surgical fashion. Approximately 15 mL of half percent Marcaine with epinephrine were administered to the perianal skin. There was cellulitis and multiple subcutaneous fistulous tracts. None of them appeared to extend within the anal canal. 2 of the fistulous tracts one on the right side another on the left side were unroofed and curettaged. Additional fistulous openings were connected with setons. Toprol for setons worst placed 2 on the right 2 on the left. All those tracts and small pockets of abscesses were copiously irrigated. Allergies/Medications Allergies: Coded Allergies: No Known Allergies (02/09/17) Home Med List: Aspirin (Ecotrin*) 81 MG TABLET.DR 1 TAB PO DAILY HEART/BLOOD (Reported) Calcitriol (Rocaltrol) 0.25 MCG CAPSULE 1 CAP PO DAILY SUPPLEMENT (Reported) Cholecalciferol (Vitamin D3) (Vitamin D3) 1,000 UNIT CAPSULE 1 CAP PO DAILY VITAMIN SUPPORT (Reported) Furosemide 40 MG TABLET 1 TAB PO Saturday DIURETIC (Reported) Lisinopril (Prinivil) 20 MG TABLET 1 TAB PO DAILY BP (Reported) Metoprolol Succinate 50 MG TAB.ER.24H 1.5 TAB PO DAILY BP (Reported) Simvastatin (Simvastatin*) 20 MG TABLET 1 TAB PO QPM CHOLESTEROL (Reported) Sodium Bicarbonate 650 MG TABLET 2 TAB PO DAILY ANTACID (Reported) Past History Travel History Traveled to [place] past 21 day No Medical History Blood Transfusion Hx: No Neurological: NONE EENT: NONE Cardiovascular: CHF, hypertension Respiratory: NONE Gastrointestinal: constipation Hepatic: NONE Renal: chronic kidney disease Musculoskeletal: NONE Psychiatric: NONE Endocrine: NONE Blood Disorders: NONE 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 Home Services at Home: None Primary Language: Greenlandic Smoking Status: Former Smoker ETOH Use: denies use Illicit Drug Use: denies illicit drug use Review of Systems Review of Systems: No chest pain shortness of breath palpitations abdominal discomfort. Patient complains of perineal soreness but not severe pain. Exam & Diagnostic Data Vital Signs and I&O Vital Signs Date Time Temp Pulse Resp B/P B/P Pulse O2 O2 Flow FiO2 Mean Ox Delivery Rate 02/10 1420 98.1 80 16 122/64 98 Room Air 02/10 0640 97.5 71 20 110/65 99 Room Air 02/09 2359 97.7 73 20 118/66 98 Room Air 02/09 2019 Room Air Intake & Output 02/10 0400 02/09 0400 02/08 1600 02/08 0400 Intake Total 1150 400 500 Output Total 1600 300 Balance -450 100 500 Intake, IV 1150 500 Intake, Oral 0 400 Number 6 1 Bowel Movements Output, Stool 500 Output, Urine 1100 300 Patient 200 lb 200 lb Weight Weight Reported by Patient Measurement Method General Appearance Alert, Oriented X3, Cooperative Skin perirectal area examined and noted for areas of erythema, with tenderness but without warmth, skin breakdowns noted. Neck Supple, No JVD Cardiovascular Regular Rate, Normal S1, Normal S2 Lungs Clear to Auscultation, Normal Air Movement Abdomen Normal Bowel Sounds, Soft, No Tenderness Neurological Strength at 5/5 X4 Ext Extremities No Cyanosis, No Edema, clubbing noted bilaterally The entire perineum extending posteriorly up to the coccyx is discolored and bruised.. There is a 3 inch incision at approximately 11 o'clock position. A smaller 1 inch incision at the 2 o'clock position and further incisions at 5 O' clock. 7 O'clock. 9 O'clock.. There is also a break in the skin at approximately 6 O'clock. No active bleeding. Assessment/Plan Assessment/Recommendations: In summary we have a 71-year-old man who has been relatively immobile for the last 3 years and particularly over the last 4 months. He has been sitting in a chair for almost the entire day for weeks. He has had significant weight loss over the last few weeks, and then rectal bleeding as documented above. Patient reveals significantly bruised perineum which today has had multiple drainage incisions performed due to the presence of abscesses and fistulae. There is no sign of active bleeding at present. Patient has never had any endoscopic procedures per his son. My preference would be to allow the perineum to heal before proceeding with a prep which is bound to result in soiling of fresh fistula drainage sites. It is likely that the patient will not have further significant lower GI bleeding if patient does have recurrence of significant lower GI bleeding then we will be forced to perform a colonoscopy to identify the site of bleeding thank you for the consultation we will follow with you. Consult Acknowledgment - Thank you for your consult request.
[2017-02-10 20:00] VITALS: BP 92/50
--- NOTE | 2017-02-10 22:31 | PN- General Surgery ---
Subjective Subjective: Post op check: Patient tolerated procedure and was transferred to intensive care unit for monitoring post operatively. He experienced a substantial lower GI bleed in the intraoperative period and states that presently he feels weak. He has been getting prbc transfused. He feels that his pain is controlled presently, he states that it only hurts when he moves too much. He denies chest pain, shortness of breath and difficulty breathing. He denies nausea and vomitting. Objective Vital Signs and I&Os Vital Signs Date Time Temp Pulse Resp B/P B/P Pulse O2 O2 Flow FiO2 Mean Ox Delivery Rate 02/11 2000 100 Room Air 02/11 2000 97.2 58 18 92/50 100 Room Air 02/10 1420 98.1 80 16 122/64 98 Room Air 02/10 0640 97.5 71 20 110/65 99 Room Air 02/09 2359 97.7 73 20 118/66 98 Room Air Intake & Output 02/10 1600 02/10 0800 02/10 0000 / 1600 02/09 0800 02/09 0000 Intake Total 750 400 400 500 Output Total 425 1175 300 Balance 325 -775 100 500 Intake, IV 750 400 500 Intake, Oral 0 400 Number 2 4 1 Bowel Movements Output, Stool 500 Output, Urine 425 675 300 Patient 200 lb 200 lb Weight Weight Reported by Patient Measurement Method Physical Exam: General: Alert and oriented x3, no acute distress Cardiac: R R R, s1s2 Pulm: Non-labored respiratory effort, bilateral sounds cta Abdomen: Non-tender, non -distended Extremities: Moves all extremities, distal sensation intact, bilateral calves soft and non-tender Surgical site: Lauro-anal, dressing dry and intact, no residual lower GI bleed noted since intraop Assessment/Plan Assessment/Plan This is a 71 year old male who was brought to or today for disimpaction of anal vault and i&d of lauro-anal abscess -SITZ spray to perianal area 2-3 x per day -Keep dressing clean and dry -Follow up GI consult -Follow up am labs -Will D/W Dr. Wilson
[2017-02-11] VITALS: BP 110/60
--- NOTE | 2017-02-11 00:23 | NUR ---
PT AWAKE AND ALERT, DENIES PAIN AT THIS TIME. UNIT OF PC STARTED, MONITORED FOR ADVERSE REACTION. NO BM NOTED SO FAR. NSR 60'S, MANUAL BP 110/60. SATURATION 99% ON RA, LUNGS SOUND CLEAR.
[2017-02-11 05:48] LABS: ABSOLUTE BASOPHIL COUNT 0 /CUMM (0.0-0.2); ABSOLUTE EOSINOPHIL COUNT 0.3 /CUMM (0.0-0.7); ABSOLUTE LYMPH COUNT 1.5 /CUMM (1.2-3.4); ABSOLUTE MONOCYTE COUNT 0.5 /CUMM (0.10-0.60); BASOPHIL % 0.4 % (0.0-2.0); EOSINOPHIL % 3.6 % (0-5); GRANULOCYTE % 72.5 % (42.2-75.2); MEAN CORPUSCULAR HGB 26.8 PG (27.0-31.0); MEAN CORPUSCULAR HGB CONC 32.6 G/DL (33.0-37.0); MEAN CORPUSCULAR VOLUME 82.3 FL (80.0-94.0); MEAN PLATELET VOLUME 6.9 FL (7.4-10.4); PLATELET COUNT 443 /CUMM (130-400); RBC DISTRIBUTION WIDTH 17.3 % (11.5-14.5); RED BLOOD CELL CT 3.47 /CUMM (4.70-6.10); WHITE BLOOD CELL COUNT 8.3 /CUMM (4.8-10.8)
[2017-02-11 05:51] LABS: HEMATOCRIT 28.5 % (42-52)
[2017-02-11 05:52] LABS: PT 13.9 SEC (9.4-12.5)
--- NOTE | 2017-02-11 06:36 | PN- CRCU ---
Subjective HPI/Critical Care Issues: I saw the patient at bedside. He is afebrile, hemodynamically stable and saturating well on room air. alert, oriented x3. no active complaints. No overnight events. Patient is on clear liquids Objective Current Medications: Current Medications Sig/Amy Start time Last Medication Dose Route Stop Time Status Admin Acetaminophen 1,000 MG .STK-MED ONE 02/10 1427 DC IV 02/10 1428 Acetaminophen 650 MG Q6P PRN 02/09 1630 AC 02/10 PO 0658 Acetaminophen 1,000 MG Q6P PRN 02/09 1630 AC IV Ampicillin Sodium/ 1,500 MG Q12H 02/11 0700 AC 02/11 Sulbactam Sodium IV 0638 Sodium Chloride 100 ML Ampicillin Sodium/ 1,500 MG Q12H 02/10 0200 DC 02/10 Sulbactam Sodium IV 1900 Sodium Chloride 100 ML Aspirin Buffered 81 MG DAILY 02/10 1000 DC PO Atorvastatin Calcium 10 MG 1700 02/10 1700 DC PO Calcitriol 0.25 MCG DAILY 02/10 1000 DC 02/10 PO 0902 Cholecalciferol 1,000 IU DAILY 02/10 1000 DC 02/10 PO 0902 Fentanyl Citrate 100 MCG .STK-MED ONE 02/10 1427 DC IM 02/10 1428 Hydromorphone HCl 2 MG .STK-MED ONE 02/10 1608 DC IM 02/10 1609 Ketamine HCl 50 MG .STK-MED ONE 02/10 1428 DC IM 02/10 1429 Midazolam HCl 2 MG .STK-MED ONE 02/10 1428 DC IM 02/10 1429 Polyethylene Glycol 17 GM DAILY 02/10 0045 AC 02/11 PO 1052 Senna 187 MG AT BEDTIME 02/10 0045 AC PO Sodium Bicarbonate 325 MG 4 TIMES/DAY 02/09 1800 AC 02/11 PO 1051 Vital Signs & I&O Last 24 Hrs of Vitals and I&O: Vital Signs Date Time Temp Pulse Resp B/P B/P Pulse O2 O2 Flow FiO2 Mean Ox Delivery Rate 02/11 0400 97 Room Air 02/11 0000 99 Room Air 02/11 0000 97.8 64 18 110/60 99 Room Air 02/10 2000 100 Room Air 02/10 2000 97.2 58 18 92/50 100 Room Air 02/10 1420 98.1 80 16 122/64 98 Room Air Intake & Output 02/11 1600 02/11 0800 02/11 0000 Intake Total 525 770 Output Total 650 350 Balance -125 420 Intake, Blood 300 Product Intake, IV 225 770 Number 0 Bowel Movements Output, Urine 650 350 Patient 200 lb Weight Exam General Appearance: well developed/nourished, no apparent distress, alert, awake , anxious, comfortable Head: atraumatic, normal appearance Ears, Nose, Throat: normal ENT inspection Neck: normal inspection, supple Respiratory: normal breath sounds Cardiovascular: regular rate/rhythm Abdomen: normal bowel sounds (bowel sounds sluggish) Back: normal inspection Extremities: normal inspection, normal capillary refill Neurologic/Psychiatric: awake, alert Skin: intact, normal color Results Last 24 Hrs of Lab Results: Laboratory Tests 02/11/17 0600: Sodium Cancelled, Potassium Cancelled, Chloride Cancelled, Carbon Dioxide Cancelled, Anion Gap Cancelled, BUN Cancelled, Creatinine Cancelled, BUN/ Creatinine Ratio Cancelled, CBC w Diff Cancelled, WBC Cancelled, RBC Cancelled, Hgb Cancelled, Hct Cancelled, MCV Cancelled, MCH Cancelled, RDW Cancelled, Plt Count Cancelled, MPV Cancelled, PUBS MCHC Cancelled 02/11/17 0500: Anion Gap 10, Estimated GFR 17 L, Glucose 73, Calcium 8.4, Phosphorus 4.9 H, Magnesium 2.9 H, Total Bilirubin 0.8, AST 8 L, ALT 21, Albumin 2.3 L, PT 13.9 H, INR 1.33 H, CBC w Diff NO MAN DIFF REQ, RBC 3.47 L, MCV 82.3, MCH 26.8 L, RDW 17.3 H, MPV 6.9 L, Gran % 72.5, Lymphocytes % 17.5 L, Monocytes % 6.0, Eosinophils % 3.6, Basophils % 0.4, Absolute Granulocytes 6.0, Absolute Lymphocytes 1.5, Absolute Monocytes 0.5, Absolute Eosinophils 0.3, Absolute Basophils 0, PUBS MCHC 32.6 L 02/10/17 1900: CBC w Diff Cancelled, WBC Cancelled, RBC Cancelled, Hgb Cancelled, Hct Cancelled , MCV Cancelled, MCH Cancelled, RDW Cancelled, Plt Count Cancelled, MPV Cancelled, PUBS MCHC Cancelled 02/10/17 1835: Anion Gap 11, Estimated GFR 18 L, Glucose 117 H, Calcium 8.1 L, Phosphorus 5.0 H, Magnesium 2.8 H, Total Bilirubin 0.9, AST 9 L, ALT 23, Albumin 2.2 L, CBC w Diff NO MAN DIFF REQ, RBC 2.78 L, MCV 83.1, MCH 26.7 L, RDW 17.9 H, MPV 6.9 L, Gran % 73.6, Lymphocytes % 18.3 L, Monocytes % 5.9, Eosinophils % 2.0, Basophils % 0.2, Absolute Granulocytes 8.3 H, Absolute Lymphocytes 2.1, Absolute Monocytes 0.7 H, Absolute Eosinophils 0.2, Absolute Basophils 0, PUBS MCHC 32.2 L Impression/Plan Impression/Plan Impression/Plan: 71 od gentleman with 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 2 units of PRBC transfused. Hemoglobin today is 9.3. Plan: 1) S/P perirectal fistula repair Post op-DAY 1 * folllow SITZ spray to perianal area 2-3 x per day * Keep dressing clean and dry. * Patient is on day 2 Unasyn surgery consult: Advised to continue * SITZ spray to perianal area 2-3 x per day * Keep dressing clean and dry * Follow up GI consult, consider feeding pt today * Follow up am labs * Will D/W Dr. Kerns GI consult: * Advised to continue clear diet. * To check CBCs twice and maintain H&H more than 7/2 * To Consider bowel regimen, although defer to surgery given recent findings/ manipulation and and inform if recurrent hematochezia may consider bowel preparation and colonoscopy at that time. 2) chronic anemia * 4 units of PRBC transfused since admission * His hemoglobin today is 9.3,hematocrit of 28.5 * Patient is doing fine. No dyspnea, orthopnea. * Check CBCs twice daily.
--- NOTE | 2017-02-11 06:52 | PN- General Surgery ---
See Addendum Subjective Subjective: No acute overnight events reported, no additional bleeding. No chest pain, shortness of breath and difficulty breathing. No nausea and vomitting. Objective Vital Signs and I&Os Vital Signs Date Time Temp Pulse Resp B/P B/P Pulse O2 O2 Flow FiO2 Mean Ox Delivery Rate 02/11 0400 97 Room Air 02/11 0000 99 Room Air 02/11 0000 97.8 64 18 110/60 99 Room Air 02/10 2000 100 Room Air 02/10 2000 97.2 58 18 92/50 100 Room Air 02/10 1420 98.1 80 16 122/64 98 Room Air Intake & Output 02/11 0800 02/11 0000 02/10 1600 02/10 0800 02/10 0000 02/09 1600 Intake Total 525 770 750 400 400 500 Output Total 650 631 736 1285 300 Balance -125 420 325 -775 100 500 Intake, Blood 300 Product Intake, IV 225 770 750 400 500 Intake, Oral 0 400 Number 0 2 4 1 Bowel Movements Output, Stool 500 Output, Urine 650 350 425 675 300 Patient 200 lb 200 lb Weight Weight Reported by Patient Measurement Method Physical Exam: General: Alert and oriented x3, no acute distress Cardiac: RRR, s1s2 Pulm: C T A bilaterally Abdomen: non-tender, non-distended Extremities: Moves all extremities, distal sensation intact, calves soft and non-tender Surgical site: Vessel loops, skin edges approximated, scant dark blood noted on dressing, no evidence of active rectal bleeding Assessment/Plan Assessment/Plan This is a 71 year old male who was brought to or today for disimpaction of anal vault and i&d of lauro-anal abscess -SITZ spray to perianal area 2-3 x per day -Keep dressing clean and dry -Follow up GI consult, consider feeding pt today -Follow up am labs -Will D/W Dr. Wilson
--- NOTE | 2017-02-11 11:35 | PN- Att Addend ---
Attending MD Review Statement Attending Statement Attending MD Statement: examined this patient, discuss w/resident/PA/MANAGER NEWS, agreed w/resident/PA/MANAGER NEWS, reviewed EMR data (avail), discussed w/nursing Attending Assessment/Plan: Laboratory Tests 02/11/17 0600: Sodium Cancelled, Potassium Cancelled, Chloride Cancelled, Carbon Dioxide Cancelled, Anion Gap Cancelled, BUN Cancelled, Creatinine Cancelled, BUN/ Creatinine Ratio Cancelled, CBC w Diff Cancelled, WBC Cancelled, RBC Cancelled, Hgb Cancelled, Hct Cancelled, MCV Cancelled, MCH Cancelled, RDW Cancelled, Plt Count Cancelled, MPV Cancelled, PUBS MCHC Cancelled 02/11/17 0500: Anion Gap 10, Estimated GFR 17 L, Glucose 73, Calcium 8.4, Phosphorus 4.9 H, Magnesium 2.9 H, Total Bilirubin 0.8, AST 8 L, ALT 21, Albumin 2.3 L, PT 13.9 H, INR 1.33 H, CBC w Diff NO MAN DIFF REQ, RBC 3.47 L, MCV 82.3, MCH 26.8 L, RDW 17.3 H, MPV 6.9 L, Gran % 72.5, Lymphocytes % 17.5 L, Monocytes % 6.0, Eosinophils % 3.6, Basophils % 0.4, Absolute Granulocytes 6.0, Absolute Lymphocytes 1.5, Absolute Monocytes 0.5, Absolute Eosinophils 0.3, Absolute Basophils 0, PUBS MCHC 32.6 L 02/10/17 1900: CBC w Diff Cancelled, WBC Cancelled, RBC Cancelled, Hgb Cancelled, Hct Cancelled , MCV Cancelled, MCH Cancelled, RDW Cancelled, Plt Count Cancelled, MPV Cancelled, PUBS MCHC Cancelled 02/10/17 1835: Anion Gap 11, Estimated GFR 18 L, Glucose 117 H, Calcium 8.1 L, Phosphorus 5.0 H, Magnesium 2.8 H, Total Bilirubin 0.9, AST 9 L, ALT 23, Albumin 2.2 L, CBC w Diff NO MAN DIFF REQ, RBC 2.78 L, MCV 83.1, MCH 26.7 L, RDW 17.9 H, MPV 6.9 L, Gran % 73.6, Lymphocytes % 18.3 L, Monocytes % 5.9, Eosinophils % 2.0, Basophils % 0.2, Absolute Granulocytes 8.3 H, Absolute Lymphocytes 2.1, Absolute Monocytes 0.7 H, Absolute Eosinophils 0.2, Absolute Basophils 0, PUBS MCHC 32.2 L Vital Signs Date Time Temp Pulse Resp B/P B/P Pulse O2 O2 Flow FiO2 Mean Ox Delivery Rate 02/11 0400 97 Room Air 02/11 0000 99 Room Air 02/11 0000 97.8 64 18 110/60 99 Room Air 02/11 2000 100 Room Air 02/11 2000 97.2 58 18 92/50 100 Room Air 02/10 1420 98.1 80 16 122/64 98 Room Air Pt seen and examined at bedside Pt with perianal fistula and severe consitpation with fecal impaction s/p disimpaction and repair of fisutla and I & D of abscess yesterday on 02/10- perioperative lower GI bleed and so patient was transferred to ICU for close monitoring. Pt doing ok,GI consult appreciated. Monitor H/h q12h for now. If stable will consider transferring back to [facility]. d/w pt the care plan.
--- NOTE | 2017-02-11 12:41 | PN- Gastroenterology ---
Assessment/Plan Assessment/Recommendations: Lower GI bleed, ceased. Anemia, improved after transfusion of 4 units of packed red blood cells. Vital signs are stable. Differential diagnosis is large and includes hemorrhoidal, stercoral ulceration, neoplasm, etc. Constipation/fecal impaction, status post disimpaction Recommendations * Continue clear liquid diet for now * Check CBC twice daily * Maintain hemoglobin/hematocrit at greater than 7/21 * Await colorectal surgery follow-up * Consider bowel regimen, although defer to surgery given recent findings/ manipulation * Please call with recurrent hematochezia; may consider bowel preparation and colonoscopy at that time Subjective Subjective: The patient has not had a bowel movement today, although he has passed flatus. There has been no blood per rectum per RN. He has had some perirectal pain with movement. He denies abdominal pain, nausea, fever. Objective Vital Signs and I&Os Vital Signs Date Time Temp Pulse Resp B/P B/P Pulse O2 O2 Flow FiO2 Mean Ox Delivery Rate 02/11 0400 97 Room Air 02/11 0000 99 Room Air 02/11 0000 97.8 64 18 110/60 99 Room Air 02/10 2000 100 Room Air 02/10 2000 97.2 58 18 92/50 100 Room Air 02/10 1420 98.1 80 16 122/64 98 Room Air Intake & Output 02/11 1600 02/11 0400 02/10 1600 02/10 0400 02/09 1600 02/09 0400 Intake Total 128 777 9319 400 500 Output Total 992 805 8853 300 Balance -125 420 -450 100 500 Intake, Blood 300 Product Intake, IV 156 633 8842 500 Intake, Oral 0 400 Number 0 6 1 Bowel Movements Output, Stool 500 Output, Urine 370 169 2530 300 Patient 200 lb 200 lb 200 lb Weight Weight Reported by Patient Measurement Method Physical Exam: Sclera anicteric. Abdomen is soft and nondistended, nontender. Rectal examination not performed. Current Medications: Current Medications Sig/Amy Start time Last Medication Dose Route Stop Time Status Admin Acetaminophen 1,000 MG .STK-MED ONE 02/10 1427 DC IV 02/10 1428 Acetaminophen 650 MG Q6P PRN 02/09 1630 AC 02/10 PO 0658 Acetaminophen 1,000 MG Q6P PRN 02/09 1630 AC IV Ampicillin Sodium/ 1,500 MG Q12H 02/11 0700 AC 07/03 Sulbactam Sodium IV 0638 Sodium Chloride 100 ML Ampicillin Sodium/ 1,500 MG Q12H 02/10 0200 DC 02/10 Sulbactam Sodium IV 1900 Sodium Chloride 100 ML Aspirin Buffered 81 MG DAILY 02/10 1000 DC PO Atorvastatin Calcium 10 MG 1700 02/10 1700 DC PO Calcitriol 0.25 MCG DAILY 02/10 1000 DC 02/10 PO 0902 Cholecalciferol 1,000 IU DAILY 02/10 1000 DC 02/10 PO 0902 Fentanyl Citrate 100 MCG .STK-MED ONE 02/10 1427 DC IM 02/10 1428 Hydromorphone HCl 2 MG .STK-MED ONE 02/10 1608 DC IM 02/10 1609 Ketamine HCl 50 MG .STK-MED ONE 02/10 1428 DC IM 02/10 1429 Midazolam HCl 2 MG .STK-MED ONE 02/10 1428 DC IM 02/10 1429 Polyethylene Glycol 17 GM DAILY 02/10 0045 AC 02/11 PO 1052 Senna 187 MG AT BEDTIME 02/10 0045 AC PO Sodium Bicarbonate 325 MG 4 TIMES/DAY 02/09 1800 AC 02/11 PO 1051 Results Pertinent Lab Results: Laboratory Tests 02/11 02/11 02/10 0600 0500 1900 Chemistry Sodium (137 - 145 mmol/L) Cancelled 141 Potassium (3.5 - 5.1 mmol/L) Cancelled 5.1 Chloride (98 - 107 mmol/L) Cancelled 114 H Carbon Dioxide (22 - 30 mmol/L) Cancelled 17 L Anion Gap (5 - 16) Cancelled 10 BUN (9 - 20 mg/dL) Cancelled 67 H Creatinine (0.7 - 1.2 mg/dL) Cancelled 3.5 H Estimated GFR (>60 ml/min) 17 L BUN/Creatinine Ratio Cancelled Glucose (65 - 99 mg/dL) 73 Calcium (8.4 - 10.2 mg/dL) 8.4 Phosphorus (2.5 - 4.5 mg/dL) 4.9 H Magnesium (1.6 - 2.3 mg/dL) 2.9 H Total Bilirubin (0.2 - 1.3 mg/dL) 0.8 AST (17 - 59 U/L) 8 L ALT (21 - 72 U/L) 21 Albumin (3.5 - 5.0 g/dL) 2.3 L Coagulation PT (9.4 - 12.5 SEC) 13.9 H INR (0.90 - 1.17) 1.33 H Hematology CBC w Diff Cancelled NO MAN DIFF REQ Cancelled WBC (4.8 - 10.8 /CUMM) Cancelled 8.3 Cancelled RBC (4.70 - 6.10 /CUMM) Cancelled 3.47 L Cancelled Hgb (14.0 - 18.0 G/DL) Cancelled 9.3 L Cancelled Hct (42 - 52 %) Cancelled 28.5 L Cancelled MCV (80.0 - 94.0 FL) Cancelled 82.3 Cancelled MCH (27.0 - 31.0 PG) Cancelled 26.8 L Cancelled RDW (11.5 - 14.5 %) Cancelled 17.3 H Cancelled Plt Count (130 - 400 /CUMM) Cancelled 443 H Cancelled MPV (7.4 - 10.4 FL) Cancelled 6.9 L Cancelled Gran % (42.2 - 75.2 %) 72.5 Lymphocytes % (20.5 - 51.1 %) 17.5 L Monocytes % (1.7 - 9.3 %) 6.0 Eosinophils % (0 - 5 %) 3.6 Basophils % (0.0 - 2.0 %) 0.4 Absolute Granulocytes (1.4 - 6.5 /CUMM) 6.0 Absolute Lymphocytes (1.2 - 3.4 /CUMM) 1.5 Absolute Monocytes (0.10 - 0.60 /CUMM) 0.5 Absolute Eosinophils (0.0 - 0.7 /CUMM) 0.3 Absolute Basophils (0.0 - 0.2 /CUMM) 0 PUBS MCHC (33.0 - 37.0 G/DL) Cancelled 32.6 L Cancelled 02/10 02/10 1835 0605 Chemistry Sodium (137 - 145 mmol/L) 141 141 Potassium (3.5 - 5.1 mmol/L) 4.8 5.2 H Chloride (98 - 107 mmol/L) 114 H 112 H Carbon Dioxide (22 - 30 mmol/L) 16 L 20 L Anion Gap (5 - 16) 11 9 BUN (9 - 20 mg/dL) 71 H 71 H Creatinine (0.7 - 1.2 mg/dL) 3.4 H 3.8 H Estimated GFR (>60 ml/min) 18 L 16 L BUN/Creatinine Ratio (7 - 25 %) 18.7 Glucose (65 - 99 mg/dL) 117 H Calcium (8.4 - 10.2 mg/dL) 8.1 L Phosphorus (2.5 - 4.5 mg/dL) 5.0 H Magnesium (1.6 - 2.3 mg/dL) 2.8 H Total Bilirubin (0.2 - 1.3 mg/dL) 0.9 AST (17 - 59 U/L) 9 L ALT (21 - 72 U/L) 23 Albumin (3.5 - 5.0 g/dL) 2.2 L Hematology CBC w Diff NO MAN DIFF REQ NO MAN DIFF REQ WBC (4.8 - 10.8 /CUMM) 11.3 H 10.7 RBC (4.70 - 6.10 /CUMM) 2.78 L 2.71 L Hgb (14.0 - 18.0 G/DL) 7.4 *L 7.4 *L Hct (42 - 52 %) 23.1 L 22.7 L MCV (80.0 - 94.0 FL) 83.1 83.9 MCH (27.0 - 31.0 PG) 26.7 L 27.3 RDW (11.5 - 14.5 %) 17.9 H 16.1 H Plt Count (130 - 400 /CUMM) 497 H 580 H MPV (7.4 - 10.4 FL) 6.9 L 7.1 L Gran % (42.2 - 75.2 %) 73.6 70.9 Lymphocytes % (20.5 - 51.1 %) 18.3 L 18.0 L Monocytes % (1.7 - 9.3 %) 5.9 7.5 Eosinophils % (0 - 5 %) 2.0 2.8 Basophils % (0.0 - 2.0 %) 0.2 0.8 Absolute Granulocytes (1.4 - 6.5 /CUMM) 8.3 H 7.6 H Absolute Lymphocytes (1.2 - 3.4 /CUMM) 2.1 1.9 Absolute Monocytes (0.10 - 0.60 /CUMM) 0.7 H 0.8 H Absolute Eosinophils (0.0 - 0.7 /CUMM) 0.2 0.3 Absolute Basophils (0.0 - 0.2 /CUMM) 0 0.1 PUBS MCHC (33.0 - 37.0 G/DL) 32.2 L 32.6 L 02/09 02/09 1608 1540 Chemistry Lactic Acid Cancelled Urines Urine Color (YEL,AMB,STR) YEL Urine Clarity (CLEAR) HAZY H Urine pH (5.0 - 8.0) 7.5 Ur Specific [place] (1.001 - 1.035) 1.015 Urine Protein (NEG,<30 MG/DL) TRACE H Urine Ketones (NEG) NEG Urine Nitrite (NEG) NEG Urine Bilirubin (NEG) NEG Urine Urobilinogen (0.1 - 1.0 EU/dl) 0.2 Ur Leukocyte Esterase (NEG) MOD H Ur Microscopic SEDIMENT EXAMINED Urine RBC (0 - 5 /HPF) 15-25 H Urine WBC (0 - 2 /HPF) 5-10 H Ur Epithelial Cells (NONE,FEW) RARE Urine Bacteria (NEG/NONE) MOD H Urine Hemoglobin (NEG) MOD H Urine Glucose (N MG/DL) NEG 02/09 1317 Chemistry Sodium (137 - 145 mmol/L) 140 Potassium (3.5 - 5.1 mmol/L) 4.6 Chloride (98 - 107 mmol/L) 109 H Carbon Dioxide (22 - 30 mmol/L) 17 L Anion Gap (5 - 16) 13 BUN (9 - 20 mg/dL) 74 H Creatinine (0.7 - 1.2 mg/dL) 3.9 H Estimated GFR (>60 ml/min) 15 L BUN/Creatinine Ratio (7 - 25 %) 19.0 Glucose (65 - 99 mg/dL) 86 Lactic Acid (0.7 - 2.1 mmol/L) 1.0 Uric Acid (3.5 - 8.5 mg/dL) 14.2 H Calcium (8.4 - 10.2 mg/dL) 9.1 Total Bilirubin (0.2 - 1.3 mg/dL) 0.4 AST (17 - 59 U/L) 8 L ALT (21 - 72 U/L) 22 Alkaline Phosphatase (< 127 U/L) 64 Total Protein (6.3 - 8.2 g/dL) 6.4 Albumin (3.5 - 5.0 g/dL) 2.8 L Globulin (1.9 - 4.2 gm/dL) 3.6 Albumin/Globulin Ratio (1.1 - 2.2 %) 0.8 L Vitamin B12 (239 - 931 pg/mL) 322 25-OH Vitamin D Total (30 - 100 ng/ml) 32.1 TSH (0.270 - 4.200 uIU/mL) 4.070 Coagulation PT (9.4 - 12.5 SEC) 15.0 H INR (0.90 - 1.17) 1.43 H APTT (25 - 37 SEC) 32 Hematology CBC w Diff NO MAN DIFF REQ WBC (4.8 - 10.8 /CUMM) 11.8 H RBC (4.70 - 6.10 /CUMM) 2.98 L Hgb (14.0 - 18.0 G/DL) 8.0 L Hct (42 - 52 %) 24.9 L MCV (80.0 - 94.0 FL) 83.6 MCH (27.0 - 31.0 PG) 26.7 L RDW (11.5 - 14.5 %) 16.6 H Plt Count (130 - 400 /CUMM) 622 H MPV (7.4 - 10.4 FL) 6.8 L Gran % (42.2 - 75.2 %) 74.6 Lymphocytes % (20.5 - 51.1 %) 14.7 L Monocytes % (1.7 - 9.3 %) 8.3 Eosinophils % (0 - 5 %) 1.7 Basophils % (0.0 - 2.0 %) 0.7 Absolute Granulocytes (1.4 - 6.5 /CUMM) 8.8 H Absolute Lymphocytes (1.2 - 3.4 /CUMM) 1.7 Absolute Monocytes (0.10 - 0.60 /CUMM) 1.0 H Absolute Eosinophils (0.0 - 0.7 /CUMM) 0.2 Absolute Basophils (0.0 - 0.2 /CUMM) 0.1 PUBS MCHC (33.0 - 37.0 G/DL) 32.0 L
--- NOTE | 2017-02-11 14:25 | NUR ---
PT EXPERIENCING BLOODY LOOSE STOOL. DR ZAPIEN TO BEDSIDE TO EVALUATE. DR WRIGHT NOTOFIED WELL.
[2017-02-11 15:03] LABS: ABSOLUTE BASOPHIL COUNT 0 /CUMM (0.0-0.2); ABSOLUTE EOSINOPHIL COUNT 0.3 /CUMM (0.0-0.7); ABSOLUTE GRANULOCYTE CT 5.6 /CUMM (1.4-6.5); ABSOLUTE LYMPH COUNT 1.3 /CUMM (1.2-3.4); ABSOLUTE MONOCYTE COUNT 0.5 /CUMM (0.10-0.60); BASOPHIL % 0.5 % (0.0-2.0); EOSINOPHIL % 3.4 % (0-5); GRANULOCYTE % 72.2 % (42.2-75.2); HEMATOCRIT 29.7 % (42-52); MEAN CORPUSCULAR HGB 26.8 PG (27.0-31.0); MEAN CORPUSCULAR HGB CONC 32.8 G/DL (33.0-37.0); MEAN CORPUSCULAR VOLUME 81.7 FL (80.0-94.0); PLATELET COUNT 470 /CUMM (130-400); RBC DISTRIBUTION WIDTH 17.5 % (11.5-14.5); RED BLOOD CELL CT 3.63 /CUMM (4.70-6.10); WHITE BLOOD CELL COUNT 7.8 /CUMM (4.8-10.8)
--- NOTE | 2017-02-11 15:20 | NUR ---
DISCUSSED BLOODY STOOL PASSED BY PATIENT WITH DR AVRGAS. PER MD PT TO STAY IN ICU TONIGHT AND REMAIN ON CLR LIQ DIET.
--- NOTE | 2017-02-11 15:38 | Event Note ---
Event Note Event Note: Around 1 PM patient had a maroon-colored bloody loose stool. Vitals stable. Dr. Watkins informed. Advised to continue clear liqiuds and monitor in ICU for today.
[2017-02-11 16:00] VITALS: BP 136/70
--- NOTE | 2017-02-11 20:58 | NUR ---
PT A/OX3, FOLLOWS COMMANDS. DENIES ANY PAIN AT PRESENT. BREATH SOUNDS CLEAR WITH DIMINISHED BREATH SOUNDS AT BASES BILATERALLY. NO COUGH, SOB OR RESP DISTRESS NOTED AT PRESENT. SEE FLOW SHEET FOR VS, 02 SATS, I/O'S. MONITOR SHOWS NSR, NO ECTOPY NOTED AT PRESENT. BP STABLE AT PRESENT. ABD SOFT, NONTENDER, NONDISTENDED, POSITIVE BOWEL SOUNDS. NO EVIDENCE OF GI BLEEDING NOTED AT PRESENT. VOIDING. SKIN INTACT. RECTUM WITH RED TIES IN PLACE, SCANT DRAINAGE OF BLOODY DRAINAGE NOTED
[2017-02-11 23:00] VITALS: BP 120/64
--- NOTE | 2017-02-12 05:50 | PN- CRCU ---
Subjective HPI/Critical Care Issues: I saw the saw the patient personally today at bedside. No overnight events. Patient slept well. Patient is afebrile saturating well at room air. Vitals are stable Objective Current Medications: Current Medications Sig/Amy Start time Last Medication Dose Route Stop Time Status Admin Acetaminophen 650 MG Q6P PRN 02/09 1630 AC 02/10 PO 0658 Acetaminophen 1,000 MG Q6P PRN 02/09 1630 AC IV Ampicillin Sodium/ 1,500 MG Q12H 02/11 0700 AC 02/11 Sulbactam Sodium IV 1800 Sodium Chloride 100 ML Polyethylene Glycol 17 GM DAILY 02/10 0045 AC 02/11 PO 1052 Senna 187 MG AT BEDTIME 02/10 0045 AC PO Sodium Bicarbonate 325 MG 4 TIMES/DAY 02/09 1800 AC 02/11 PO 2337 Vital Signs & I&O Last 24 Hrs of Vitals and I&O: Vital Signs Date Time Temp Pulse Resp B/P B/P Pulse O2 O2 Flow FiO2 Mean Ox Delivery Rate 02/12 0400 96 Room Air Room Air 02/12 0000 96 Room Air Room Air 02/11 2300 98.6 81 23 120/64 96 Room Air Room Air 02/11 2000 99 Room Air Room Air 02/11 1600 99 Room Air / 1600 97.9 77 25 136/70 99 Room Air 02/11 1200 99 Room Air 02/11 0800 Room Air Intake & Output 02/12 0800 07/04 0000 07/03 1600 Intake Total 320 360 Output Total 825 425 Balance -505 -65 Intake, IV 100 Intake, Oral 220 360 Number 1 2 Bowel Movements Output, Urine 825 425 Patient 200 lb Weight Exam General Appearance: well developed/nourished, no apparent distress, alert, awake Head: atraumatic, normal appearance Ears, Nose, Throat: normal pharynx, normal ENT inspection Neck: normal inspection, supple Respiratory: normal breath sounds Cardiovascular: regular rate/rhythm Abdomen: normal bowel sounds, soft, non-tender, no organomegaly Back: normal inspection Extremities: normal inspection, normal capillary refill Neurologic/Psychiatric: awake, alert, oriented x 3 Skin: intact, normal color Results Last 24 Hrs of Lab Results: Laboratory Tests 02/11/17 1400: CBC w Diff NO MAN DIFF REQ, RBC 3.63 L, MCV 81.7, MCH 26.8 L, RDW 17.5 H, MPV 7.0 L, Gran % 72.2, Lymphocytes % 16.9 L, Monocytes % 7.0, Eosinophils % 3.4, Basophils % 0.5, Absolute Granulocytes 5.6, Absolute Lymphocytes 1.3, Absolute Monocytes 0.5, Absolute Eosinophils 0.3, Absolute Basophils 0, PUBS MCHC 32.8 L 02/11/17 0600: Sodium Cancelled, Potassium Cancelled, Chloride Cancelled, Carbon Dioxide Cancelled, Anion Gap Cancelled, BUN Cancelled, Creatinine Cancelled, BUN/ Creatinine Ratio Cancelled, CBC w Diff Cancelled, WBC Cancelled, RBC Cancelled, Hgb Cancelled, Hct Cancelled, MCV Cancelled, MCH Cancelled, RDW Cancelled, Plt Count Cancelled, MPV Cancelled, PUBS MCHC Cancelled Impression/Plan Impression/Plan Impression/Plan: 71 od gentleman with multiple perianal fistula and cellulitis with severe consitpation with fecal impaction s/p disimpaction and repair of fisutla and I & D of abscess done on 02/10- perioperative lower GI bleed and so patient was transferred to ICU for close monitoring. 2 units of PRBC transfused. Hemoglobin today is 9.3. Patient had one episode of maroon stools yesterday. Vitals stable. No further episodes of bleeding per rectum/loose stools. Plan: 1) S/P perirectal fistula repair Post op-DAY 2 * folllow SITZ spray to perianal area 2-3 x per day * Keep dressing clean and dry. * Patient is on day 3 Unasyn GI consult 02/12/2017 Advance to full liquid diet * May downgrade from ICU * Check CBC daily * Maintain hemoglobin/hematocrit at greater than 7/21 * Consider bowel regimen, such as daily [id number], although would clear with colorectal surgery. * Please call with recurrent hematochezia; may consider bowel preparation and colonoscopy at that time. Otherwise, will defer colonoscopy. Colorectal consult:02/12/17 * for anticonstipation regimen - continue MiraLAX daily and add Colace 2 times per day, okay to use Senokot temporarily but would not use chronically * Multiple perianal fistula- seton drains to stay in place until follow-up with Dr. Wilson, continue aggressive perianal hygiene 2) chronic anemia * 4 units of PRBC transfused since admission * His hemoglobin today is 9.3,hematocrit of 28.3 * Patient is doing fine. No dyspnea, orthopnea. Patient can be transferred to general med as per GI/surgery and MD consult. Code Status: Full Code Problem List: 1. Anemia 2. Fecal impaction 3. Cellulitis of rectal area 4. GI bleed * Advised to continue clear diet. * To check CBCs twice and maintain H&H more than 7/2 * To Consider bowel regimen, although defer to surgery given recent findings/ manipulation and and inform if recurrent hematochezia may consider bowel preparation and colonoscopy at that time. 2) chronic anemia * 4 units of PRBC transfused since admission * His hemoglobin today is 9.3,hematocrit of 28.5 * Patient is doing fine. No dyspnea, orthopnea. * Check CBCs twice daily. Code Status: Full Code Problem List: 1. Anemia 2. Fecal impaction 3. Cellulitis of rectal area 4. GI bleed
[2017-02-12 06:41] LABS: ABSOLUTE BASOPHIL COUNT 0 /CUMM (0.0-0.2); ABSOLUTE EOSINOPHIL COUNT 0.3 /CUMM (0.0-0.7); ABSOLUTE GRANULOCYTE CT 5.5 /CUMM (1.4-6.5); ABSOLUTE LYMPH COUNT 1.7 /CUMM (1.2-3.4); ABSOLUTE MONOCYTE COUNT 0.8 /CUMM (0.10-0.60); BASOPHIL % 0.5 % (0.0-2.0); EOSINOPHIL % 4.1 % (0-5); GRANULOCYTE % 66.1 % (42.2-75.2); HEMATOCRIT 28.3 % (42-52); MEAN CORPUSCULAR HGB 26.8 PG (27.0-31.0); MEAN CORPUSCULAR HGB CONC 32.7 G/DL (33.0-37.0); MEAN PLATELET VOLUME 6.9 FL (7.4-10.4); PLATELET COUNT 438 /CUMM (130-400); RBC DISTRIBUTION WIDTH 17.6 % (11.5-14.5); RED BLOOD CELL CT 3.45 /CUMM (4.70-6.10); WHITE BLOOD CELL COUNT 8.3 /CUMM (4.8-10.8)
--- NOTE | 2017-02-12 07:13 | NUR ---
PT SLEPT MOST OF NIGHT. DENIED ANY PAIN THOUGHOUT SHIFT. BREATH SOUNDS CLEAR THOUGHOUT SHIFT. NO COUGH, SOB OR RESP DISTRESS NOTED THOUGHOUT SHIFT. MONITOR NSR, NO ECTOPY NOTED THOUGHOUT SHIFT. BP STABLE THOUGHOUT SHIFT. BUTTOCKS REMAIN REDDENED, SLIGHTLY SWOLLEN, RED TIES IN PLACE-DSG CHANGED-MINIMAL SEROSAGINIOUS DRAINAGE NOTED.
[2017-02-12 08:00] VITALS: BP 116/68
--- NOTE | 2017-02-12 09:27 | PN- Gastroenterology ---
Assessment/Plan Assessment/Recommendations: Lower GI bleed, ceased. Minor bleeding yesterday, which seemed to be old blood. Anemia, stable. Constipation/fecal impaction, status post disimpaction Recommendations * Advance to full liquid diet * May downgrade from ICU * Check CBC daily * Maintain hemoglobin/hematocrit at greater than 7/21 * Consider bowel regimen, such as daily PEG-3350, although would clear with colorectal surgery. * Please call with recurrent hematochezia; may consider bowel preparation and colonoscopy at that time. Otherwise, will defer colonoscopy. Subjective Subjective: No bowel movements, nor passage of blood. No abdominal pain or nausea. Objective Vital Signs and I&Os Vital Signs Date Time Temp Pulse Resp B/P B/P Pulse O2 O2 Flow FiO2 Mean Ox Delivery Rate 02/12 0400 96 Room Air Room Air 02/12 0000 96 Room Air Room Air 02/11 2300 98.6 81 23 120/64 96 Room Air Room Air 02/11 2000 99 Room Air Room Air 02/11 1600 99 Room Air 02/11 1600 97.9 77 25 136/70 99 Room Air 02/11 1200 99 Room Air Intake & Output 02/12 1600 02/12 0400 02/11 1600 02/11 0400 02/10 1600 02/10 0400 Intake Total 100 320 039 839 3595 400 Output Total 177 874 4437 350 1600 300 Balance -650 -505 -190 420 -450 100 Intake, Blood 300 Product Intake, IV 100 100 441 201 4632 Intake, Oral 220 360 0 400 Number 0 1 2 0 6 1 Bowel Movements Output, Stool 500 Output, Urine 353 983 0968 350 1100 300 Patient 200 lb 200 lb Weight Physical Exam: Abdomen soft and nondistended, normal bowel sounds, no tenderness. Current Medications: Current Medications Sig/Amy Start time Last Medication Dose Route Stop Time Status Admin Acetaminophen 650 MG Q6P PRN 02/09 1630 AC 02/10 PO 0658 Acetaminophen 1,000 MG Q6P PRN 02/09 1630 AC IV Ampicillin Sodium/ 1,500 MG Q12H 02/11 07 AC 02/12 Sulbactam Sodium IV 0627 Sodium Chloride 100 ML Polyethylene Glycol 17 GM DAILY 02/10 004 AC 02/12 PO 0920 Senna 187 MG AT BEDTIME 02/10 45 AC PO Sodium Bicarbonate 325 MG 4 TIMES/DAY 02/09 1800 AC 02/12 PO 0920 Results Pertinent Lab Results: Laboratory Tests 02/12 02/11 0611 1400 Chemistry Sodium (137 - 145 mmol/L) 139 Potassium (3.5 - 5.1 mmol/L) 5.0 Chloride (98 - 107 mmol/L) 111 H Carbon Dioxide (22 - 30 mmol/L) 19 L Anion Gap (5 - 16) 8 BUN (9 - 20 mg/dL) 62 H Creatinine (0.7 - 1.2 mg/dL) 3.1 H Estimated GFR (>60 ml/min) 20 L Glucose (65 - 99 mg/dL) 91 Calcium (8.4 - 10.2 mg/dL) 8.4 Phosphorus (2.5 - 4.5 mg/dL) 3.7 Magnesium (1.6 - 2.3 mg/dL) 2.7 H Total Bilirubin (0.2 - 1.3 mg/dL) 0.6 AST (17 - 59 U/L) 11 L ALT (21 - 72 U/L) 22 Albumin (3.5 - 5.0 g/dL) 2.4 L Hematology CBC w Diff NO MAN DIFF REQ NO MAN DIFF REQ WBC (4.8 - 10.8 /CUMM) 8.3 7.8 RBC (4.70 - 6.10 /CUMM) 3.45 L 3.63 L Hgb (14.0 - 18.0 G/DL) 9.3 L 9.7 L Hct (42 - 52 %) 28.3 L 29.7 L MCV (80.0 - 94.0 FL) 82.0 81.7 MCH (27.0 - 31.0 PG) 26.8 L 26.8 L RDW (11.5 - 14.5 %) 17.6 H 17.5 H Plt Count (130 - 400 /CUMM) 438 H 470 H MPV (7.4 - 10.4 FL) 6.9 L 7.0 L Gran % (42.2 - 75.2 %) 66.1 72.2 Lymphocytes % (20.5 - 51.1 %) 20.1 L 16.9 L Monocytes % (1.7 - 9.3 %) 9.2 7.0 Eosinophils % (0 - 5 %) 4.1 3.4 Basophils % (0.0 - 2.0 %) 0.5 0.5 Absolute Granulocytes (1.4 - 6.5 /CUMM) 5.5 5.6 Absolute Lymphocytes (1.2 - 3.4 /CUMM) 1.7 1.3 Absolute Monocytes (0.10 - 0.60 /CUMM) 0.8 H 0.5 Absolute Eosinophils (0.0 - 0.7 /CUMM) 0.3 0.3 Absolute Basophils (0.0 - 0.2 /CUMM) 0 0 PUBS MCHC (33.0 - 37.0 G/DL) 32.7 L 32.8 L 07 07/ 07/ 0600 0500 1900 Chemistry Sodium (137 - 145 mmol/L) Cancelled 141 Potassium (3.5 - 5.1 mmol/L) Cancelled 5.1 Chloride (98 - 107 mmol/L) Cancelled 114 H Carbon Dioxide (22 - 30 mmol/L) Cancelled 17 L Anion Gap (5 - 16) Cancelled 10 BUN (9 - 20 mg/dL) Cancelled 67 H Creatinine (0.7 - 1.2 mg/dL) Cancelled 3.5 H Estimated GFR (>60 ml/min) 17 L BUN/Creatinine Ratio Cancelled Glucose (65 - 99 mg/dL) 73 Calcium (8.4 - 10.2 mg/dL) 8.4 Phosphorus (2.5 - 4.5 mg/dL) 4.9 H Magnesium (1.6 - 2.3 mg/dL) 2.9 H Total Bilirubin (0.2 - 1.3 mg/dL) 0.8 AST (17 - 59 U/L) 8 L ALT (21 - 72 U/L) 21 Albumin (3.5 - 5.0 g/dL) 2.3 L Coagulation PT (9.4 - 12.5 SEC) 13.9 H INR (0.90 - 1.17) 1.33 H Hematology CBC w Diff Cancelled NO MAN DIFF REQ Cancelled WBC (4.8 - 10.8 /CUMM) Cancelled 8.3 Cancelled RBC (4.70 - 6.10 /CUMM) Cancelled 3.47 L Cancelled Hgb (14.0 - 18.0 G/DL) Cancelled 9.3 L Cancelled Hct (42 - 52 %) Cancelled 28.5 L Cancelled MCV (80.0 - 94.0 FL) Cancelled 82.3 Cancelled MCH (27.0 - 31.0 PG) Cancelled 26.8 L Cancelled RDW (11.5 - 14.5 %) Cancelled 17.3 H Cancelled Plt Count (130 - 400 /CUMM) Cancelled 443 H Cancelled MPV (7.4 - 10.4 FL) Cancelled 6.9 L Cancelled Gran % (42.2 - 75.2 %) 72.5 Lymphocytes % (20.5 - 51.1 %) 17.5 L Monocytes % (1.7 - 9.3 %) 6.0 Eosinophils % (0 - 5 %) 3.6 Basophils % (0.0 - 2.0 %) 0.4 Absolute Granulocytes (1.4 - 6.5 /CUMM) 6.0 Absolute Lymphocytes (1.2 - 3.4 /CUMM) 1.5 Absolute Monocytes (0.10 - 0.60 /CUMM) 0.5 Absolute Eosinophils (0.0 - 0.7 /CUMM) 0.3 Absolute Basophils (0.0 - 0.2 /CUMM) 0 PUBS MCHC (33.0 - 37.0 G/DL) Cancelled 32.6 L Cancelled 02/10 02/10 1835 0605 Chemistry Sodium (137 - 145 mmol/L) 141 141 Potassium (3.5 - 5.1 mmol/L) 4.8 5.2 H Chloride (98 - 107 mmol/L) 114 H 112 H Carbon Dioxide (22 - 30 mmol/L) 16 L 20 L Anion Gap (5 - 16) 11 9 BUN (9 - 20 mg/dL) 71 H 71 H Creatinine (0.7 - 1.2 mg/dL) 3.4 H 3.8 H Estimated GFR (>60 ml/min) 18 L 16 L BUN/Creatinine Ratio (7 - 25 %) 18.7 Glucose (65 - 99 mg/dL) 117 H Calcium (8.4 - 10.2 mg/dL) 8.1 L Phosphorus (2.5 - 4.5 mg/dL) 5.0 H Magnesium (1.6 - 2.3 mg/dL) 2.8 H Total Bilirubin (0.2 - 1.3 mg/dL) 0.9 AST (17 - 59 U/L) 9 L ALT (21 - 72 U/L) 23 Albumin (3.5 - 5.0 g/dL) 2.2 L Hematology CBC w Diff NO MAN DIFF REQ NO MAN DIFF REQ WBC (4.8 - 10.8 /CUMM) 11.3 H 10.7 RBC (4.70 - 6.10 /CUMM) 2.78 L 2.71 L Hgb (14.0 - 18.0 G/DL) 7.4 *L 7.4 *L Hct (42 - 52 %) 23.1 L 22.7 L MCV (80.0 - 94.0 FL) 83.1 83.9 MCH (27.0 - 31.0 PG) 26.7 L 27.3 RDW (11.5 - 14.5 %) 17.9 H 16.1 H Plt Count (130 - 400 /CUMM) 497 H 580 H MPV (7.4 - 10.4 FL) 6.9 L 7.1 L Gran % (42.2 - 75.2 %) 73.6 70.9 Lymphocytes % (20.5 - 51.1 %) 18.3 L 18.0 L Monocytes % (1.7 - 9.3 %) 5.9 7.5 Eosinophils % (0 - 5 %) 2.0 2.8 Basophils % (0.0 - 2.0 %) 0.2 0.8 Absolute Granulocytes (1.4 - 6.5 /CUMM) 8.3 H 7.6 H Absolute Lymphocytes (1.2 - 3.4 /CUMM) 2.1 1.9 Absolute Monocytes (0.10 - 0.60 /CUMM) 0.7 H 0.8 H Absolute Eosinophils (0.0 - 0.7 /CUMM) 0.2 0.3 Absolute Basophils (0.0 - 0.2 /CUMM) 0 0.1 PUBS MCHC (33.0 - 37.0 G/DL) 32.2 L 32.6 L 02/09 02/09 1608 1540 Chemistry Lactic Acid Cancelled Urines Urine Color (YEL,AMB,STR) YEL Urine Clarity (CLEAR) HAZY H Urine pH (5.0 - 8.0) 7.5 Ur Specific Cameron (1.001 - 1.035) 1.015 Urine Protein (NEG,<30 MG/DL) TRACE H Urine Ketones (NEG) NEG Urine Nitrite (NEG) NEG Urine Bilirubin (NEG) NEG Urine Urobilinogen (0.1 - 1.0 EU/dl) 0.2 Ur Leukocyte Esterase (NEG) MOD H Ur Microscopic SEDIMENT EXAMINED Urine RBC (0 - 5 /HPF) 15-25 H Urine WBC (0 - 2 /HPF) 5-10 H Ur Epithelial Cells (NONE,FEW) RARE Urine Bacteria (NEG/NONE) MOD H Urine Hemoglobin (NEG) MOD H Urine Glucose (N MG/DL) NEG 02/09 1317 Chemistry Sodium (137 - 145 mmol/L) 140 Potassium (3.5 - 5.1 mmol/L) 4.6 Chloride (98 - 107 mmol/L) 109 H Carbon Dioxide (22 - 30 mmol/L) 17 L Anion Gap (5 - 16) 13 BUN (9 - 20 mg/dL) 74 H Creatinine (0.7 - 1.2 mg/dL) 3.9 H Estimated GFR (>60 ml/min) 15 L BUN/Creatinine Ratio (7 - 25 %) 19.0 Glucose (65 - 99 mg/dL) 86 Lactic Acid (0.7 - 2.1 mmol/L) 1.0 Uric Acid (3.5 - 8.5 mg/dL) 14.2 H Calcium (8.4 - 10.2 mg/dL) 9.1 Total Bilirubin (0.2 - 1.3 mg/dL) 0.4 AST (17 - 59 U/L) 8 L ALT (21 - 72 U/L) 22 Alkaline Phosphatase (< 127 U/L) 64 Total Protein (6.3 - 8.2 g/dL) 6.4 Albumin (3.5 - 5.0 g/dL) 2.8 L Globulin (1.9 - 4.2 gm/dL) 3.6 Albumin/Globulin Ratio (1.1 - 2.2 %) 0.8 L Vitamin B12 (239 - 931 pg/mL) 322 25-OH Vitamin D Total (30 - 100 ng/ml) 32.1 TSH (0.270 - 4.200 uIU/mL) 4.070 Coagulation PT (9.4 - 12.5 SEC) 15.0 H INR (0.90 - 1.17) 1.43 H APTT (25 - 37 SEC) 32 Hematology CBC w Diff NO MAN DIFF REQ WBC (4.8 - 10.8 /CUMM) 11.8 H RBC (4.70 - 6.10 /CUMM) 2.98 L Hgb (14.0 - 18.0 G/DL) 8.0 L Hct (42 - 52 %) 24.9 L MCV (80.0 - 94.0 FL) 83.6 MCH (27.0 - 31.0 PG) 26.7 L RDW (11.5 - 14.5 %) 16.6 H Plt Count (130 - 400 /CUMM) 622 H MPV (7.4 - 10.4 FL) 6.8 L Gran % (42.2 - 75.2 %) 74.6 Lymphocytes % (20.5 - 51.1 %) 14.7 L Monocytes % (1.7 - 9.3 %) 8.3 Eosinophils % (0 - 5 %) 1.7 Basophils % (0.0 - 2.0 %) 0.7 Absolute Granulocytes (1.4 - 6.5 /CUMM) 8.8 H Absolute Lymphocytes (1.2 - 3.4 /CUMM) 1.7 Absolute Monocytes (0.10 - 0.60 /CUMM) 1.0 H Absolute Eosinophils (0.0 - 0.7 /CUMM) 0.2 Absolute Basophils (0.0 - 0.2 /CUMM) 0.1 PUBS MCHC (33.0 - 37.0 G/DL) 32.0 L
--- NOTE | 2017-02-12 11:33 | PN- General Surgery ---
Surgical Brief Attending Note Brief Attending Note: Patient with no complaints AVSS Labs reviewed: H&H stable Exam: Awake and alert, acute distress, abdomen soft nontender, rectal exam was setons in place Impression: 1. GI bleed appears to have stopped - continue to monitor H&H for now, okay to move out of ICU 2. Fecal impaction- status post manual disimpaction, agree with anticonstipation regimen, continue MiraLAX daily, would add Colace 2 times per day, okay to use Senokot temporarily but would not use chronically 3. Multiple perianal fistula- seton drains to stay in place until follow-up with Dr. Wilson, continue aggressive perianal hygiene
--- NOTE | 2017-02-12 12:08 | Transfer of Care Summary ---
Hospital Course Course Hospital Course: 71 old gentleman with multiple perianal fistula and cellulitis with severe consitpation with fecal impaction admitted to [facility]. 2 units of PRBC done in general. Patient was operated for multiple perirectal fistula and abscess drainage. Patient had significant intraoperative blood loss, and hence transferred to ICU for close monitoring. S/p disimpaction and repair of fisutla and I & D of abscess done on 02/10- because of perioperative lower GI bleed, Hemoglobin today is 9.3. Complications: Intraoperative blood loss. Treated with 2 units of packed red blood cell transfusion after surgery. Significant Procedures: 1 . Fecal disimpaction and removal. 2. Multiple perianal fistula repair done. 3. Abscess around the perianal area drained. Assessment/Plan: Impression/Plan: 71 od gentleman with multiple perianal fistula and cellulitis with severe consitpation with fecal impaction s/p disimpaction and repair of fisutla and I & D of abscess done on 02/10- perioperative lower GI bleed and so patient was transferred to ICU for close monitoring. 2 units of PRBC transfused. Hemoglobin today is 9.3. Patient had one episode of maroon stools yesterday. Vitals stable. No further episodes of bleeding per rectum/loose stools. Plan: 1) S/P perirectal fistula repair Post op-DAY 2 * folllow SITZ spray to perianal area 2-3 x per day * Keep dressing clean and dry. * Patient is on day 3 Unasyn GI consult 02/12/2017 Advance to full liquid diet * May downgrade from ICU * Check CBC daily * Maintain hemoglobin/hematocrit at greater than 7/21 * Consider bowel regimen, such as daily PEG-3350, although would clear with colorectal surgery. * Please call with recurrent hematochezia; may consider bowel preparation and colonoscopy at that time. Otherwise, will defer colonoscopy. Colorectal consult:02/12/17 * for anticonstipation regimen - continue MiraLAX daily and add Colace 2 times per day, okay to use Senokot temporarily but would not use chronically * Multiple perianal fistula- seton drains to stay in place until follow-up with Dr. Wilson, continue aggressive perianal hygiene 2) chronic anemia * 4 units of PRBC transfused since admission * His hemoglobin today is 9.3,hematocrit of 28.3 * Patient is doing fine. No dyspnea, orthopnea. Patient can be transferred to general med as per GI/surgery and MD consult. Code Status: Full Code Problem List: 1. Anemia 2. Fecal impaction 3. Cellulitis of rectal area 4. GI bleed
--- NOTE | 2017-02-12 13:30 | NUR ---
@0700-RECEIVED PT A&O X3 ON RA. VSS & DOCUMENTED ON FLOWSHEET. DENIES PAIN AT THIS TIME-010. TOLERATING CLEAR LIQUID DIET WELL. VOIDS INDEPENDENTLY IN URINAL. DRESSING CHANGED BY PREVIOUS RN & REMAINS CDI TO PERINEAL/RECTAL AREA. SETONS REMAIN INTACT TO INCISIONS OF FISTULA TRACKS. @1000-PT RECEIVED PO MEDS PER EMAR, BUT REQUESTED ONLY 1/2 OF MIRALAX DOSE D/T LIQUID STOOLS ON PREVIOUS DAY. IRON BALL & ENRRIQUE NOTIFIED. PTS DIET TO BE ADVANCED TO A REGULAR DIET PER GI DR VARGAS & COLORECTAL DR ZAPIEN. PT DOWNGRADED TO GENERAL MEDICINE AT THIS TIME PER SAME. @1300-PT WAS INCONTINENT OF MODERATE AMOUNT OF BROWN SEMILIQUID STOOL WITH SOFT ROUND FORMED PIECES MIXED IN. THE INCONTINENT PAD WAS NOTED TO HAVE A DARK PINK OUTLINE AROUND BROWN LIQUID. STOOL WAS HEMOCCULT POSITIVE. AREA WAS CLEANSED USING THE PERINEAL SPRAY BOTTLE W/LUKE WARM WATER FOR PTS COMFORT. GAUZE PLACED IN PERINEAL FOLD & BUTTOCKS F/B LARGE ABD PAD. PT DENIES PAIN DURING DRESSING CHANGE 010. REPORT GIVEN TO DAKOTA HARDY RN & PT TRANSFERRED VIA BED WITH BELONGINGS BAGS IN HIS POSSESSION VIA DISTRIBUTION W/CHART @ 2063 TO 209-2.
--- NOTE | 2017-02-12 13:34 | PN- Att Addend ---
Attending MD Review Statement Attending Statement Attending MD Statement: examined this patient, discuss w/resident/PA/WHEY DEPARTMENT OPERATOR, agreed w/resident/PA/WHEY DEPARTMENT OPERATOR, reviewed EMR data (avail), discussed w/nursing Attending Assessment/Plan: Laboratory Tests 02/12/17 0611: Anion Gap 8, Estimated GFR 20 L, Glucose 91, Calcium 8.4, Phosphorus 3.7, Magnesium 2.7 H, Total Bilirubin 0.6, AST 11 L, ALT 22, Albumin 2.4 L, CBC w Diff NO MAN DIFF REQ, RBC 3.45 L, MCV 82.0, MCH 26.8 L, RDW 17.6 H, MPV 6.9 L, Gran % 66.1, Lymphocytes % 20.1 L, Monocytes % 9.2, Eosinophils % 4.1, Basophils % 0.5, Absolute Granulocytes 5.5, Absolute Lymphocytes 1.7, Absolute Monocytes 0.8 H, Absolute Eosinophils 0.3, Absolute Basophils 0, PUBS MCHC 32.7 L 02/11/17 1400: CBC w Diff NO MAN DIFF REQ, RBC 3.63 L, MCV 81.7, MCH 26.8 L, RDW 17.5 H, MPV 7.0 L, Gran % 72.2, Lymphocytes % 16.9 L, Monocytes % 7.0, Eosinophils % 3.4, Basophils % 0.5, Absolute Granulocytes 5.6, Absolute Lymphocytes 1.3, Absolute Monocytes 0.5, Absolute Eosinophils 0.3, Absolute Basophils 0, PUBS MCHC 32.8 L Vital Signs Date Time Temp Pulse Resp B/P B/P Pulse O2 O2 Flow FiO2 Mean Ox Delivery Rate 02/12 0400 96 Room Air Room Air 02/12 0000 96 Room Air Room Air 02/11 2300 98.6 81 23 120/64 96 Room Air Room Air 02/11 2000 99 Room Air Room Air 02/11 1600 99 Room Air 02/11 1600 97.9 77 25 136/70 99 Room Air Pt with perianal fistula and severe consitpation with fecal impaction s/p disimpaction and repair of fisutla and I & D of abscess on 02/10- perioperative lower GI bleed and so patient was transferred to ICU for close monitoring. Pt doing ok,GI consult appreciated. Hb stable and so will transfer pt to Gen Med. d /w pt the care plan.
[2017-02-12 14:00] VITALS: BP 116/68
--- NOTE | 2017-02-12 14:46 | NUR ---
NURSING NOTE: PT ARRIVED TO FLOOR AT 1400 VIA BED. PT A&O, VSS CHARTED. DSG'S TO BUTTOCK CDI. PT DENIES PAIN. PT ORIENTED TO ROOM AND CALL ROB. PT RESTING IN BED COMFORTABLY.
[2017-02-12 21:56] VITALS: BP 102/74
--- NOTE | 2017-02-12 23:13 | NUR ---
PATIENT PLACED ON SIZEWISE
[2017-02-13 06:49] VITALS: BP 116/70
[2017-02-13 09:16] LABS: ABSOLUTE BASOPHIL COUNT 0 /CUMM (0.0-0.2); ABSOLUTE EOSINOPHIL COUNT 0.4 /CUMM (0.0-0.7); ABSOLUTE GRANULOCYTE CT 6.1 /CUMM (1.4-6.5); ABSOLUTE LYMPH COUNT 1.9 /CUMM (1.2-3.4); ABSOLUTE MONOCYTE COUNT 0.8 /CUMM (0.10-0.60); BASOPHIL % 0.4 % (0.0-2.0); EOSINOPHIL % 4.5 % (0-5); GRANULOCYTE % 66.5 % (42.2-75.2); HEMATOCRIT 28.7 % (42-52); MEAN CORPUSCULAR HGB 26.9 PG (27.0-31.0); MEAN CORPUSCULAR HGB CONC 32.7 G/DL (33.0-37.0); MEAN CORPUSCULAR VOLUME 82.3 FL (80.0-94.0); MEAN PLATELET VOLUME 7.2 FL (7.4-10.4); PLATELET COUNT 421 /CUMM (130-400); RBC DISTRIBUTION WIDTH 17.3 % (11.5-14.5); RED BLOOD CELL CT 3.49 /CUMM (4.70-6.10); WHITE BLOOD CELL COUNT 9.2 /CUMM (4.8-10.8)
--- NOTE | 2017-02-13 13:24 | PN- Housestaff ---
Subjective Follow-up For: Fecal Impaction Perianal abscess/Fistulas Subjective: I have personally seen and examined the patient this morning.Patient slept well. Denies any fevel,chills, pain or any overnight events. Review of Systems Constitutional: Denies: see HPI. Objective Last 24 Hrs of Vital Signs/I&O Vital Signs Date Time Temp Pulse Resp B/P B/P Pulse O2 O2 Flow FiO2 Mean Ox Delivery Rate 02/13 0649 98.1 75 20 116/70 95 Room Air 02/12 2156 98.4 82 20 102/74 96 Intake & Output 02/13 1600 02/13 0800 02/13 0000 Intake Total 440 1510 Output Total 700 650 Balance -260 860 Intake, IV 200 110 Intake, Oral 240 1400 Number 0 0 Bowel Movements Output, Urine 700 650 Physical Exam General Appearance: Alert, Oriented X3, Cooperative, No Acute Distress Other Physical Findings: Skin No Rashes HEENT Atraumatic, PERRLA, EOMI Neck Supple, No JVD Cardiovascular Regular Rate, Normal S1, Normal S2, No Murmurs Lungs Clear to Auscultation, Normal Air Movement Abdomen Normal Bowel Sounds, Soft, slight tenderness in LLQ, No Hepatospenomegaly, No Masses Neurological Normal Gait, Normal Speech, Strength at 5/5 X4 Ext, Normal Tone, Sensation Intact Extremities No Clubbing, No Cyanosis, No Edema, Normal Pulses, Normal Capillary Refill Vascular Normal Pulses Current Medications: Current Medications Sig/Amy Start time Last Medication Dose Route Stop Time Status Admin Acetaminophen 650 MG Q6P PRN 02/09 1630 AC 02/10 PO 0658 Acetaminophen 1,000 MG Q6P PRN 02/09 1630 AC IV Ampicillin Sodium/ 1,500 MG Q12H 02/11 0700 AC 02/13 Sulbactam Sodium IV 0718 Sodium Chloride 100 ML Docusate Sodium 100 MG BID 02/12 2200 AC 02/13 PO 1021 Polyethylene Glycol 17 GM DAILY 02/10 0045 AC 02/13 PO 1022 Senna 187 MG AT BEDTIME 02/10 0045 AC PO Sodium Bicarbonate 325 MG 4 TIMES/DAY 02/09 1800 AC 02/13 PO 1340 Last 24 Hrs of Lab/Matt Results Last 24 Hrs of Labs/Mics: Laboratory Tests 02/13/17 0823: CBC w Diff NO MAN DIFF REQ, RBC 3.49 L, MCV 82.3, MCH 26.9 L, RDW 17.3 H, MPV 7.2 L, Gran % 66.5, Lymphocytes % 20.4 L, Monocytes % 8.2, Eosinophils % 4.5, Basophils % 0.4, Absolute Granulocytes 6.1, Absolute Lymphocytes 1.9, Absolute Monocytes 0.8 H, Absolute Eosinophils 0.4, Absolute Basophils 0, PUBS MCHC 32.7 L Assessment/Plan Assessment: Impression/Plan 71-year-old gentleman with extensive past history, presents to the ED with extensive perirectal fistula, no evidence of abscess on CT, found to have fecal impaction and severe constipation, to be admitted to general medicine floors for resolution of his constipation and possible perirectal cellulitis. Perirectal pain: Proctitis may be a possibility. Less likely cellulitis, given lack of fevers/high white count and lack of warmth in the suspicious erythematous area. Quite possibly could represent anorectal fistula, which requires surgical intervention, alert CRsurgery. CT scan demonstrative of fecal impaction, for which the patient received tap water/soapsuds enemas. Had a bowel movement along with BRBPR. We'll continue to monitor. Will continue antibiotic treatment, renally dosed at 1.5 gm q6 - which provides appropriate coverage for cellulitis too. Stool softeners and enemas. - Pain control with Tylenol. -Colorectal surgery saw and after discussing with the son, planned to operate on him on 02/10/17. Plan: 1) S/P perirectal fistula repair Post op-DAY 3 * folllow SITZ spray to perianal area 2-3 x per day * Keep dressing clean and dry. * Patient is on day 4 Unasyn surgery consult: Advised to continue * SITZ spray to perianal area 2-3 x per day * Keep dressing clean and dry * Follow up GI consult, consider feeding pt today * Follow up am labs * Will D/W Dr. Kerns GI consult: * Advised to continue clear diet. * To check CBCs twice and maintain H&H more than 7.2 * To Consider bowel regimen, although defer to surgery given recent findings/ manipulation and and inform if recurrent hematochezia may consider bowel preparation and colonoscopy at that time. 2) Acute on Chronic blood loss Anemia * 4 units of PRBC transfused since admission * His hemoglobin today is 9.3,hematocrit of 28.5 * Patient is doing fine. No dyspnea, orthopnea. * Check CBCs twice daily. 3. Left wrist pain: Rule out fracture-left wrist x-ray. Check uric acid, normal calcium noted. May present bony pains secondary to hyperparathyroidism related to chronic kidney disease. 4.Chronic smoker; quit 2 years ago: Qualifies for low-dose CT for lung cancer screening. Proceed with portable chest x-ray for now, CT as an outpatient. 5. Weakness: Multifactorial. Decreased by mouth intake, persistent diarrhea, non-conducive home living environment and iron deficiency-blood loss. Encourage by mouth intake. Careful fluid 1 baG, given history of stage II diastolic dysfunction and CKD5. 6. Thrombocytosis: Likely reactive, in response to blood loss anemia. Continue to monitor. Holidng Lasix and anti-hypertensives. Full code. Mechanical-given anemia and possibility of blood loss. Full liquid diet. Nothing by mouth at midnight, until colorectal evaluation. Problem List: 1. Fecal impaction 2. Anemia 3. Cellulitis of rectal area Pain Ratin Pain Location: None Pain Goal: Pain 4 or less Pain Plan: Pain Pathway Tomorrow's Labs & Rationales: CBC(Anemia)
--- NOTE | 2017-02-13 14:15 | PN- Att Addend ---
Attending Addendum Attending Brief Note 71M PMH hypertension, hyperlipidemia, chronic kidney disease stage 4 admitted with fecal impaction and perianal fistulae. Went to OR on 02/10/17 for fecal disimpaction and I&D of perianal fistulae. Course complicated by lower GI bleeding, initially transferred to ICU for monitoring, hemodynamically stable and transferred down to general medicine floor over the weekend. Patient is doing well. His only complaint is that he had bowel incontinence two days ago after taking Colace and Miralax together, though this did not happen yesterday. He feels well, denies pain, has a good appetite. Vitals stable, labs reviewed. AFVSS NAD Anicteric, MMM Supple RRR no m/r/g CTAB Soft, NTND No c/c/e Pulses intact A&Ox3 no focal deficits Current Medications Sig/Amy Start time Last Medication Dose Route Stop Time Status Admin Acetaminophen 650 MG Q6P PRN 02/09 1630 AC 02/10 PO 0658 Acetaminophen 1,000 MG Q6P PRN 02/09 1630 AC IV Ampicillin Sodium/ 1,500 MG Q12H 02/11 0700 AC 02/13 Sulbactam Sodium IV 0718 Sodium Chloride 100 ML Docusate Sodium 100 MG BID 02/12 2200 AC 02/13 PO 1021 Polyethylene Glycol 17 GM DAILY 02/10 0045 AC 02/13 PO 1022 Senna 187 MG AT BEDTIME 02/10 0045 AC PO Sodium Bicarbonate 325 MG 4 TIMES/DAY 02/09 1800 AC 02/13 PO 1340 Laboratory Tests 02/13 0823 Hematology CBC w Diff NO MAN DIFF REQ WBC (4.8 - 10.8 /CUMM) 9.2 RBC (4.70 - 6.10 /CUMM) 3.49 L Hgb (14.0 - 18.0 G/DL) 9.4 L Hct (42 - 52 %) 28.7 L MCV (80.0 - 94.0 FL) 82.3 MCH (27.0 - 31.0 PG) 26.9 L RDW (11.5 - 14.5 %) 17.3 H Plt Count (130 - 400 /CUMM) 421 H MPV (7.4 - 10.4 FL) 7.2 L Gran % (42.2 - 75.2 %) 66.5 Lymphocytes % (20.5 - 51.1 %) 20.4 L Monocytes % (1.7 - 9.3 %) 8.2 Eosinophils % (0 - 5 %) 4.5 Basophils % (0.0 - 2.0 %) 0.4 Absolute Granulocytes (1.4 - 6.5 /CUMM) 6.1 Absolute Lymphocytes (1.2 - 3.4 /CUMM) 1.9 Absolute Monocytes (0.10 - 0.60 /CUMM) 0.8 H Absolute Eosinophils (0.0 - 0.7 /CUMM) 0.4 Absolute Basophils (0.0 - 0.2 /CUMM) 0 PUBS MCHC (33.0 - 37.0 G/DL) 32.7 L Vital Signs Date Time Temp Pulse Resp B/P B/P Pulse O2 O2 Flow FiO2 Mean Ox Delivery Rate 02/13 0649 98.1 75 20 116/70 95 Room Air 02/12 2156 98.4 82 20 102/74 96 Intake & Output 02/13 1600 / 0800 07 0000 Intake Total 440 1510 Output Total 700 650 Balance -260 860 Intake, IV 200 110 Intake, Oral 240 1400 Number 0 0 Bowel Movements Output, Urine 700 650 1. Perianal fistulae 2. Fecal impaction 3. Lower GI bleed 4. CKD stage 4 Plan - Continue on general medicine - Continue Unasyn for now - Continue bowel regimen, monitor bowel movement quality and frequency - Speak with GI and surgery regarding plan of care during inpatient stay and outpatient follow up planning - Monitor CBC - Continue home medications - DVT PPx - Anticipated discharge tomorrow unless further surgical or GI intervention. Please send CMR to pharmacy for review. Will switch to Augmentin to complete 14 day total course of antibiotics.
--- NOTE | 2017-02-13 15:00 | NUR ---
LATE ENTRY: PT NOT NOTED TO GET OOB TODAY. PT INDEPENDENT AT BASELINE WITH OCCASIONAL USE OF CANE. PT REPORTS HE IS NOT WILLING TO GET UP TODAY. WOULD RATHER WAIT TIL TOMORROW. PT EDUCATED OF RISKS WITH IMMOBILITY. AUGUST CHOWDHURY GIVEN REPORT. SAFETY MAINTAINED.
[2017-02-13 15:27] VITALS: BP 124/70
[2017-02-13 22:48] VITALS: BP 124/78
[2017-02-14 06:54] VITALS: BP 128/80
--- NOTE | 2017-02-14 07:58 | PN- Housestaff ---
KIKA STANLEY,[facility] 02/14/17 0757: Subjective Follow-up For: Fecal Impaction Perianal abscess/Fistulas Subjective: I have personally seen and examined the patient today. Denies any pain,fever, chills or events overnight. Review of Systems Constitutional: Denies: see HPI. Objective Last 24 Hrs of Vital Signs/I&O Vital Signs Date Time Temp Pulse Resp B/P B/P Pulse O2 O2 Flow FiO2 Mean Ox Delivery Rate 02/14 0654 98.7 68 20 128/80 98 Room Air 02/13 2248 98.4 85 20 124/78 95 02/13 1527 98.3 88 20 124/70 96 Room Air Intake & Output 02/14 1600 02/14 0800 02/14 0000 Intake Total 100 840 Output Total 550 225 Balance -450 615 Intake, IV 100 Intake, Oral 840 Number 2 Bowel Movements Output, Urine 550 225 Physical Exam General Appearance: Alert, Oriented X3, Cooperative Other Physical Findings: Skin No Rashes HEENT Atraumatic, PERRLA, EOMI Neck Supple, No JVD Cardiovascular Regular Rate, Normal S1, Normal S2, No Murmurs Lungs Clear to Auscultation, Normal Air Movement Abdomen Normal Bowel Sounds, Soft, slight tenderness in LLQ, No Hepatospenomegaly, No Masses Neurological Normal Gait, Normal Speech, Strength at 5/5 X4 Ext, Normal Tone, Sensation Intact Extremities No Clubbing, No Cyanosis, No Edema, Normal Pulses, Normal Capillary Refill Vascular Normal Pulses Current Medications: Current Medications Sig/Amy Start time Last Medication Dose Route Stop Time Status Admin Acetaminophen 650 MG Q6P PRN 02/09 1630 AC 02/10 PO 0658 Acetaminophen 1,000 MG Q6P PRN 02/09 1630 AC IV Ampicillin Sodium/ 1,500 MG Q12H 02/11 0700 AC 02/14 Sulbactam Sodium IV 0702 Sodium Chloride 100 ML Docusate Sodium 100 MG BID 02/12 2200 AC 02/14 PO 0910 Polyethylene Glycol 1 GAL ONCE ONE 02/14 1600 DC PO 02/14 1601 Polyethylene Glycol 1 GAL ONCE ONE 02/14 1415 UNVr PO 02/14 1416 Polyethylene Glycol 17 GM DAILY 02/10 0045 AC 02/14 PO 0910 Senna 187 MG AT BEDTIME 02/10 004 AC 02/13 PO 211 Sodium Bicarbonate 325 MG 4 TIMES/DAY 02/09 1800 AC 02/14 PO 0910 Last 24 Hrs of Lab/Matt Results Last 24 Hrs of Labs/Mics: Laboratory Tests 02/14/17 0745: Anion Gap 9, Estimated GFR 19 L, BUN/Creatinine Ratio 16.6, CBC w Diff NO MAN DIFF REQ, RBC 3.23 L, MCV 82.6, MCH 27.1, RDW 17.3 H, MPV 7.0 L, Gran % 68.5, Lymphocytes % 19.1 L, Monocytes % 8.2, Eosinophils % 3.7, Basophils % 0.5, Absolute Granulocytes 7.0 H, Absolute Lymphocytes 2.0, Absolute Monocytes 0.8 H, Absolute Eosinophils 0.4, Absolute Basophils 0.1, PUBS MCHC 32.8 L Assessment/Plan Assessment: Impression/Plan 71-year-old gentleman with extensive past history, presents to the ED with extensive perirectal fistula, no evidence of abscess on CT, found to have fecal impaction and severe constipation, to be admitted to general medicine floors for resolution of his constipation and possible perirectal cellulitis. Perirectal pain: Proctitis may be a possibility. Less likely cellulitis, given lack of fevers/high white count and lack of warmth in the suspicious erythematous area. Quite possibly could represent anorectal fistula, which requires surgical intervention, alert CRsurgery. CT scan demonstrative of fecal impaction, for which the patient received tap water/soapsuds enemas. Had a bowel movement along with BRBPR. We'll continue to monitor. Will continue antibiotic treatment, renally dosed at 1.5 gm q6 - which provides appropriate coverage for cellulitis too. Stool softeners and enemas. - Pain control with Tylenol. -Colorectal surgery saw and after discussing with the son, planned to operate on him on 02/10/17. Plan: 1) S/P perirectal fistula repair Post op-DAY 4 * folllow SITZ spray to perianal area 2-3 x per day * Keep dressing clean and dry. * Patient is on day 5 Unasyn surgery consult: Advised to continue * SITZ spray to perianal area 2-3 x per day * Keep dressing clean and dry * Follow up GI consult, consider feeding pt today * Follow up am labs * Will D/W Dr. Kerns GI consult: * Advised to continue clear diet. * To check CBCs twice and maintain H&H more than 7.2 * saw the patient today and planned to do a colonoscopy tomorrow. Patient had an episode of large volume bright red blood per rectum. Patient transferred to ICU for close monitoring. 2) Acute on Chronic blood loss Anemia * 4 units of PRBC transfused since admission * His hemoglobin today is 9.3,hematocrit of 28.5 * Patient is doing fine. No dyspnea, orthopnea. * Check CBCs twice daily. 3. Left wrist pain: Rule out fracture-left wrist x-ray. Check uric acid, normal calcium noted. May present bony pains secondary to hyperparathyroidism related to chronic kidney disease. 4.Chronic smoker; quit 2 years ago: Qualifies for low-dose CT for lung cancer screening. Proceed with portable chest x-ray for now, CT as an outpatient. 5. Weakness: Multifactorial. Decreased by mouth intake, persistent diarrhea, non-conducive home living environment and iron deficiency-blood loss. Encourage by mouth intake. Careful fluid 1 baG, given history of stage II diastolic dysfunction and CKD5. 6. Thrombocytosis: Likely reactive, in response to blood loss anemia. Continue to monitor. Holidng Lasix and anti-hypertensives. Full code. Mechanical-given anemia and possibility of blood loss. Full liquid diet. Nothing by mouth at midnight, until colorectal evaluation. Problem List: 1. Fecal impaction 2. Cellulitis of rectal area 3. Anemia Pain Ratin Pain Location: Rectal Area Pain Goal: Pain 4 or less Pain Plan: Pain Pathway Tomorrow's Labs & Rationales: CBC( ABLA) BOB RENTERIA MD 02/14/17 1242: Attending MD Review Statement Attending Statement Attending MD Statement: examined this patient, discuss w/resident/PA/INDUSTRIAL GAS FITTER, agreed w/resident/PA/INDUSTRIAL GAS FITTER, reviewed EMR data (avail) Attending Assessment/Plan: 71M PMH hypertension, hyperlipidemia, chronic kidney disease stage 4 admitted with fecal impaction and perianal fistulae. Went to OR on 02/10/17 for fecal disimpaction and I&D of perianal fistulae. Course complicated by lower GI bleeding, initially transferred to ICU for monitoring, hemodynamically stable and transferred down to general medicine floor over the weekend. Patient is doing well. He feels well, denies pain, has a good appetite. Vitals stable, labs reviewed. AFVSS NAD Anicteric, MMM Supple RRR no m/r/g CTAB Soft, NTND No c/c/e Pulses intact A&Ox3 no focal deficits 1. Perianal fistulae 2. Fecal impaction 3. Lower GI bleed 4. CKD stage 4 Plan - Continue on general medicine - Continue Unasyn for now - Continue bowel regimen, monitor bowel movement quality and frequency - Bowel prep tonight for colonoscopy tomorrow - NPO after midnight - Monitor CBC - Continue home medications - DVT PPx
--- NOTE | 2017-02-14 08:27 | PN- Gastroenterology ---
Assessment/Plan Assessment/Recommendations: * Lower GI bleed, ceased. Anemia, stable. * Constipation/fecal impaction, status post disimpaction * Perianal fistulous disease with abscesses, status post surgical therapy with insertion of setons. Recommendations * Clear liquid diet today * Colonoscopy tomorrow. Please give 1 gallon of GoLYTELY this afternoon, over no more than 4 hours (i.e one 8 ounce cup every 10-15 minutes until complete). This has been discussed with colorectal surgery, who concur. * Nothing by mouth after 6 AM tomorrow. Subjective Subjective: No abdominal pain. No evidence of GI bleeding. Objective Vital Signs and I&Os Vital Signs Date Time Temp Pulse Resp B/P B/P Pulse O2 O2 Flow FiO2 Mean Ox Delivery Rate 02/14 0654 98.7 68 20 128/80 98 Room Air 02/13 2248 98.4 85 20 124/78 95 02/13 1527 98.3 88 20 124/70 96 Room Air Intake & Output 02/14 0400 02/13 1600 02/13 0400 02/12 1600 02/12 0400 Intake Total 100 478 323 1658 1480 320 Output Total 903 555 3853 650 1500 825 Balance -450 615 -260 860 -20 -505 Intake, IV 100 200 110 100 100 Intake, Oral 029 893 3662 1380 220 Number 2 0 0 1 1 Bowel Movements Output, Urine 869 784 9411 650 1500 825 Physical Exam: Sclera anicteric. Abdomen soft, nondistended, nontender. Current Medications: Current Medications Sig/Amy Start time Last Medication Dose Route Stop Time Status Admin Acetaminophen 650 MG Q6P PRN 02/09 1630 AC 02/10 PO 0658 Acetaminophen 1,000 MG Q6P PRN 02/09 1630 AC IV Ampicillin Sodium/ 1,500 MG Q12H 02/11 0700 AC 02/14 Sulbactam Sodium IV 0702 Sodium Chloride 100 ML Docusate Sodium 100 MG BID 02/12 2200 AC 02/13 PO 211 Polyethylene Glycol 17 GM DAILY 02/10 004 AC 02/13 PO 1022 Senna 187 MG AT BEDTIME 02/10 0045 AC 02/13 PO 211 Sodium Bicarbonate 325 MG 4 TIMES/DAY 02/09 1800 AC 02/13 PO 211 Results Pertinent Lab Results: Laboratory Tests 02/14 02/13 0745 0823 Chemistry Sodium Pending Potassium Pending Chloride Pending Carbon Dioxide Pending Anion Gap Pending BUN Pending Creatinine Pending BUN/Creatinine Ratio Pending Hematology CBC w Diff Pending NO MAN DIFF REQ WBC (4.8 - 10.8 /CUMM) Pending 9.2 RBC (4.70 - 6.10 /CUMM) Pending 3.49 L Hgb (14.0 - 18.0 G/DL) Pending 9.4 L Hct (42 - 52 %) Pending 28.7 L MCV (80.0 - 94.0 FL) Pending 82.3 MCH (27.0 - 31.0 PG) Pending 26.9 L RDW (11.5 - 14.5 %) Pending 17.3 H Plt Count (130 - 400 /CUMM) Pending 421 H MPV (7.4 - 10.4 FL) Pending 7.2 L Gran % (42.2 - 75.2 %) 66.5 Lymphocytes % (20.5 - 51.1 %) 20.4 L Monocytes % (1.7 - 9.3 %) 8.2 Eosinophils % (0 - 5 %) 4.5 Basophils % (0.0 - 2.0 %) 0.4 Absolute Granulocytes (1.4 - 6.5 /CUMM) 6.1 Absolute Lymphocytes (1.2 - 3.4 /CUMM) 1.9 Absolute Monocytes (0.10 - 0.60 /CUMM) 0.8 H Absolute Eosinophils (0.0 - 0.7 /CUMM) 0.4 Absolute Basophils (0.0 - 0.2 /CUMM) 0 PUBS MCHC (33.0 - 37.0 G/DL) Pending 32.7 L 02/12 02/11 0611 1400 Chemistry Sodium (137 - 145 mmol/L) 139 Potassium (3.5 - 5.1 mmol/L) 5.0 Chloride (98 - 107 mmol/L) 111 H Carbon Dioxide (22 - 30 mmol/L) 19 L Anion Gap (5 - 16) 8 BUN (9 - 20 mg/dL) 62 H Creatinine (0.7 - 1.2 mg/dL) 3.1 H Estimated GFR (>60 ml/min) 20 L Glucose (65 - 99 mg/dL) 91 Calcium (8.4 - 10.2 mg/dL) 8.4 Phosphorus (2.5 - 4.5 mg/dL) 3.7 Magnesium (1.6 - 2.3 mg/dL) 2.7 H Total Bilirubin (0.2 - 1.3 mg/dL) 0.6 AST (17 - 59 U/L) 11 L ALT (21 - 72 U/L) 22 Albumin (3.5 - 5.0 g/dL) 2.4 L Hematology CBC w Diff NO MAN DIFF REQ NO MAN DIFF REQ WBC (4.8 - 10.8 /CUMM) 8.3 7.8 RBC (4.70 - 6.10 /CUMM) 3.45 L 3.63 L Hgb (14.0 - 18.0 G/DL) 9.3 L 9.7 L Hct (42 - 52 %) 28.3 L 29.7 L MCV (80.0 - 94.0 FL) 82.0 81.7 MCH (27.0 - 31.0 PG) 26.8 L 26.8 L RDW (11.5 - 14.5 %) 17.6 H 17.5 H Plt Count (130 - 400 /CUMM) 438 H 470 H MPV (7.4 - 10.4 FL) 6.9 L 7.0 L Gran % (42.2 - 75.2 %) 66.1 72.2 Lymphocytes % (20.5 - 51.1 %) 20.1 L 16.9 L Monocytes % (1.7 - 9.3 %) 9.2 7.0 Eosinophils % (0 - 5 %) 4.1 3.4 Basophils % (0.0 - 2.0 %) 0.5 0.5 Absolute Granulocytes (1.4 - 6.5 /CUMM) 5.5 5.6 Absolute Lymphocytes (1.2 - 3.4 /CUMM) 1.7 1.3 Absolute Monocytes (0.10 - 0.60 /CUMM) 0.8 H 0.5 Absolute Eosinophils (0.0 - 0.7 /CUMM) 0.3 0.3 Absolute Basophils (0.0 - 0.2 /CUMM) 0 0 PUBS MCHC (33.0 - 37.0 G/DL) 32.7 L 32.8 L
[2017-02-14 08:34] LABS: ABSOLUTE BASOPHIL COUNT 0.1 /CUMM (0.0-0.2); ABSOLUTE EOSINOPHIL COUNT 0.4 /CUMM (0.0-0.7); ABSOLUTE MONOCYTE COUNT 0.8 /CUMM (0.10-0.60); BASOPHIL % 0.5 % (0.0-2.0); EOSINOPHIL % 3.7 % (0-5); GRANULOCYTE % 68.5 % (42.2-75.2); HEMATOCRIT 26.7 % (42-52); MEAN CORPUSCULAR HGB 27.1 PG (27.0-31.0); MEAN CORPUSCULAR HGB CONC 32.8 G/DL (33.0-37.0); MEAN CORPUSCULAR VOLUME 82.6 FL (80.0-94.0); PLATELET COUNT 375 /CUMM (130-400); RBC DISTRIBUTION WIDTH 17.3 % (11.5-14.5); RED BLOOD CELL CT 3.23 /CUMM (4.70-6.10); WHITE BLOOD CELL COUNT 10.2 /CUMM (4.8-10.8)
--- NOTE | 2017-02-14 10:02 | PN- General Surgery ---
Surgical Brief Attending Note Brief Attending Note: Pt is scheduled for colonoscopy with GI tomorrow. Will follow-up the results. From the surgical standpoint, the perineal fistulous disease is controlled with setons, aggressive perineal hygiene (i.e. frequent sitz baths, and antibiotics).
--- NOTE | 2017-02-14 14:00 | NUR ---
NURSING NOTE: THIS RN WAS CALLED INTO THE PATIENT'S ROOM BY THE [facility]. THIS RN OBSERVED A LARGE AMOUNT OF BRIGHT RED BLOOD BETWEEN THE PATIENT'S LEGS THAT THE PATIENT SAID HAPPENED AFTER HE FARTED. THIS RN TURNED THE PATIENT TO CLEAN THE BLOOD AND NOTED AN EXTRA LARGE BLOOD CLOT POURING OUT OF THE PATIENT'S RECTUM. DR. RENTERIA CALLED INTO THE ROOM AND OBSERVED THE CLOT. DR. RENTERIA IMMEDIATELY CALLED FOR GI TO COME AND OBSERVE. DR. RDZ CAME TO OBSERVE. DURING THIS TIME, THE PATIENT DENIED ANY FEELINGS OF DIZZINESS, WEAKNESS, OR HEADACHE. THE PATIENT'S VSS, BP 130/70. AFTER DR. RDZ OBSERVED PATIENT, THIS RN CLEANED PATIENT UP, HOOKED UP TO TEARER PRESS CLIPPING AND TRANSFERED TO ICU WITH RN SUPERVISORS AND MD AT THE BEDSIDE. PATIENT'S CHART AND MEDS TRANSFERED WITH PATIENT. REPORT GIVEN TO TRENTON HENDERSON.
--- NOTE | 2017-02-14 14:30 | NUR ---
RECEIVED FROM 2NB ROOM 209-2 FOR BRIGHT RED BLOOD PER RECTUM. PATIENT SETTLED INTO ROOM, PLACED ON MONITOR NSR, HR 100, MANUAL BP 140/78. PERICARE GIVEN, SUTURES INTACT TO BUTTOCKS AREA. LARGE AMOUNT OF BRIGHT RED BLOOD AND BLOOD CLOTS NOTED. PATIENT ALERT ORIENTED X3. NO REPORTS OF PAIN.
[2017-02-14 14:35] VITALS: BP 140/78
--- NOTE | 2017-02-14 14:45 | NUR ---
LAB WORK SENT, LAVENDER, BLUE, AND PINK TUBES SENT TO LAB.
--- NOTE | 2017-02-14 15:00 | NUR ---
WHILE INSERTING NEW IV LINE TO LEFT FOREARM, PATIENT REPORTED FEELING DIZZY. DR OSUNA IN SPEAKING WITH PATIENT. PATIENT BECAME PALE AND DIAPHORETIC SLIGHTLY. AUTOMATIC BP 52/33, MANUAL BP RECHECK 52/34. HEART RATE 74. CRCU TEAM IN AT THIS TIME. IV NS BOLUS STARTED. BLOOD TRANSFUSION ORDERED.
--- NOTE | 2017-02-14 15:01 | Event Note ---
Event Note Event Note: Patient sent to the ICU after an episode of BRBPR. Patient was operated for Incision and drainage of perianal abscesses and fistulae and fecal disimpaction on 02/10/2017. He has already recieved 4 units of blood during his hospital stay because of drop in his H&H. He was schedueled for a colonoscopy tomorrow. GI and Colorectal surgery called, will follow up.
[2017-02-14 15:14] LABS: ABSOLUTE BASOPHIL COUNT 0 /CUMM (0.0-0.2); ABSOLUTE EOSINOPHIL COUNT 0.4 /CUMM (0.0-0.7); ABSOLUTE GRANULOCYTE CT 8.4 /CUMM (1.4-6.5); ABSOLUTE LYMPH COUNT 2.1 /CUMM (1.2-3.4); ABSOLUTE MONOCYTE COUNT 0.8 /CUMM (0.10-0.60); BASOPHIL % 0.3 % (0.0-2.0); EOSINOPHIL % 3.7 % (0-5); GRANULOCYTE % 71.1 % (42.2-75.2); HEMATOCRIT 24.7 % (42-52); MEAN CORPUSCULAR HGB 26.9 PG (27.0-31.0); MEAN CORPUSCULAR HGB CONC 32.7 G/DL (33.0-37.0); MEAN CORPUSCULAR VOLUME 82.3 FL (80.0-94.0); MEAN PLATELET VOLUME 7.1 FL (7.4-10.4); PLATELET COUNT 463 /CUMM (130-400); WHITE BLOOD CELL COUNT 11.8 /CUMM (4.8-10.8)
--- NOTE | 2017-02-14 15:15 | NUR ---
DR RDZ IN TO SEE PATIENT. SHOWED DR RDZ BLEEDING FROM RECTUM TO HIM. ORDERED TO GIVE 2 FLEET ENEMA AT THIS TIME AND WILL DO A SIGMOIDOSCOPY LATER THIS AFTERNOON. BP INCREASED TO 90/53, P 86. PERICARE GIVEN PRIOR TO GIVEN FLEETS ENEMAS. 2ND AMOUNT OF LARGE AMOUNT OF BRIGHT RED BLOOD WITH CLOTS.
[2017-02-14 15:16] LABS: PT 13.4 SEC (9.4-12.5)
--- NOTE | 2017-02-14 15:24 | NUR ---
NURSING NOTE: TWO BELONGING BAGS NOTED LEFT IN PATIENT'S ROOM IN 209-2. BROUGHT DOWN TO ICU TO PATIENT'S NEW ROOM.
[2017-02-14 16:00] VITALS: BP 112/59
--- NOTE | 2017-02-14 16:40 | Cons- CRCU ---
MARCY WHITT 02/14/17 1521: General Information and HPI Consulting Request Date of Consult: 02/14/17 Requested By: Dr. Rodney Reason for Consult: Lower GI bleed Source of Information: patient, old records Exam Limitations: clinical condition History of Present Illness: Mr. Callejas is a 71 year old male w a PMH of hypertension, hyperlipidemia, CKD, chronic anemia, stage II diastolic heart failure who presents to [facility] ED with complaints of perirectal/rectal pain, constipation and multiple episodes of blood per rectum. He was initially taken to the OR on day 2 of admission, for plans of disimpaction and an I/D of a perirectal abscess and insertion of setons. Prior to starting, he had a big bloody bowel movement. He was transfused a unit of blood in the operating room, was disimpacted and had an incision and drainage. He was transferred to the ICU, where he was monitored. Initially the plan was to get a colonoscopy however in the operating room he had multiple fistulas which were clipped, and it was felt that by prepping him for a colonoscopy, his risk of infection would be significantly elevated. His hemoglobin and hematocrit remained stable and he was then transferred to the general medicine floor. He again presented to the ICU after being transfered from for another acute GI bleed. At the time of the interview, the patient was actively bleeding per rectum, and passed a few clots. I estimate his blood loss was around 300-400cc. A stat repeat H/H did not show a significant drop, 8.1/24.7 however over the last 3 days he has dropped from 9.7/29.7. The plan was to prep him for tonight and to have a colonoscopy tomorrow morning. The patient denies any acute discomfort or complaints, aside from his obvious bleed. He denies any abdominal pain, dyspnea, lightheadedness or tachycardia. At the time of the interview, the patients vitals we temporarily concerning, with his BP dropping to the 30-50s systoloically. Large bore IVs were obtained and he was given 1.5L bolus, which quickly corrected his BP to the 90s systolically. His HR maintaind in the 80-90s and didn't go any higher. GI and gen surg were immediately notified, and the patient was prepped w 2 fleet enemas and we will have a sigmoidoscopy in the room. Allergies/Medications Allergies: Coded Allergies: No Known Allergies (02/09/17) Home Med List: Aspirin (Ecotrin*) 81 MG TABLET.DR 1 TAB PO DAILY HEART/BLOOD (Reported) Calcitriol (Rocaltrol) 0.25 MCG CAPSULE 1 CAP PO DAILY SUPPLEMENT (Reported) Cholecalciferol (Vitamin D3) (Vitamin D3) 1,000 UNIT CAPSULE 1 CAP PO DAILY VITAMIN SUPPORT (Reported) Furosemide 40 MG TABLET 1 TAB PO Saturday DIURETIC (Reported) Lisinopril (Prinivil) 20 MG TABLET 1 TAB PO DAILY BP (Reported) Metoprolol Succinate 50 MG TAB.ER.24H 1.5 TAB PO DAILY BP (Reported) Simvastatin (Simvastatin*) 20 MG TABLET 1 TAB PO QPM CHOLESTEROL (Reported) Sodium Bicarbonate 650 MG TABLET 2 TAB PO DAILY ANTACID (Reported) Current Medications: Current Medications Sig/Amy Start time Last Medication Dose Route Stop Time Status Admin Acetaminophen 650 MG Q6P PRN 02/09 1630 AC 02/10 PO 0658 Acetaminophen 1,000 MG Q6P PRN 02/09 1630 AC IV Ampicillin Sodium/ 1,500 MG Q12H 02/11 0700 AC 02/14 Sulbactam Sodium IV 0702 Sodium Chloride 100 ML Docusate Sodium 100 MG BID 02/12 2200 AC 02/14 PO 0910 Polyethylene Glycol 1 GAL ONCE ONE 02/14 1600 DC PO 02/14 1601 Polyethylene Glycol 1 GAL ONCE ONE 02/14 1415 DC PO 02/14 1416 Polyethylene Glycol 17 GM DAILY 02/10 0045 AC 02/14 PO 0910 Senna 187 MG AT BEDTIME 02/10 0045 AC 02/13 PO 2113 Sodium Bicarbonate 325 MG 4 TIMES/DAY 02/09 1800 AC 02/14 PO 0910 Sodium Chloride 1,000 ML BOLUS ONE 02/14 1515 AC IV 02/14 1614 Sodium Phosphate 1 UNIT .[TWICE] 02/14 1530 UNVr GA Review of Systems Review of Systems Constitutional: Reports: see HPI. 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 Home Services at Home: None Primary Language: Chinese Smoking Status: Former Smoker ETOH Use: denies use Illicit Drug Use: denies illicit drug use Exam & Diagnostic Data Last 24 Hrs of Vital Signs/I&O Vital Signs Date Time Temp Pulse Resp B/P B/P Pulse O2 O2 Flow FiO2 Mean Ox Delivery Rate 02/14 654 98.7 68 20 128/80 98 Room Air 02/13 2248 98.4 85 20 124/78 95 Intake & Output 02/14 1600 02/14 0800 02/14 0000 Intake Total 900 100 840 Output Total 550 225 Balance 900 -450 615 Intake, IV 100 Intake, Oral 900 840 Number 2 Bowel Movements Output, Urine 550 225 Physical Exam General Appearance: well developed/nourished, alert, awake, moderate distress Head: atraumatic, normal appearance Eyes: Bilateral: EOMI, pale conjunctivae. Neck: normal inspection, supple Respiratory: normal breath sounds, lungs clear Cardiovascular: regular rate/rhythm Gastrointestinal: soft, non-tender, mixed blood passing with clots per rectum Rectal: see above Last 48 Hrs of Labs/Matt: Laboratory Tests 02/14/17 1445: PT 13.4 H, INR 1.28 H, CBC w Diff NO MAN DIFF REQ, RBC 3.00 L, MCV 82.3, MCH 26.9 L, RDW 17.0 H, MPV 7.1 L, Gran % 71.1, Lymphocytes % 18.1 L, Monocytes % 6.8, Eosinophils % 3.7, Basophils % 0.3, Absolute Granulocytes 8.4 H, Absolute Lymphocytes 2.1, Absolute Monocytes 0.8 H, Absolute Eosinophils 0.4, Absolute Basophils 0, PUBS MCHC 32.7 L 02/14/17 0745: Anion Gap 9, Estimated GFR 19 L, BUN/Creatinine Ratio 16.6, CBC w Diff NO MAN DIFF REQ, RBC 3.23 L, MCV 82.6, MCH 27.1, RDW 17.3 H, MPV 7.0 L, Gran % 68.5, Lymphocytes % 19.1 L, Monocytes % 8.2, Eosinophils % 3.7, Basophils % 0.5, Absolute Granulocytes 7.0 H, Absolute Lymphocytes 2.0, Absolute Monocytes 0.8 H, Absolute Eosinophils 0.4, Absolute Basophils 0.1, PUBS MCHC 32.8 L 02/13/17 0823: CBC w Diff NO MAN DIFF REQ, RBC 3.49 L, MCV 82.3, MCH 26.9 L, RDW 17.3 H, MPV 7.2 L, Gran % 66.5, Lymphocytes % 20.4 L, Monocytes % 8.2, Eosinophils % 4.5, Basophils % 0.4, Absolute Granulocytes 6.1, Absolute Lymphocytes 1.9, Absolute Monocytes 0.8 H, Absolute Eosinophils 0.4, Absolute Basophils 0, PUBS MCHC 32.7 L Assessment/Plan Impression/Plan: Mr. Callejas is a 71 year old male w a PMH of hypertension, hyperlipidemia, CKD, chronic anemia, stage II diastolic heart failure who presented to [facility] ED with complaints of perirectal/rectal pain, constipation and multiple episodes of blood per rectum. He was transferred back to the ICU from for another acute GI bleed, around 300-400cc. A stat repeat H/H did not show a significant drop, 8.1/24.7 however over the last 3 days he has dropped from 9.7/ 29.7. Recommendations: 1. Stat type/cross and transfuse 2 units of PRBC with an H/H recheck after transfusion 2. Prep for a sigmoidoscopy with Dr. Landa with 2 fleet enemas 3. Surgical PA aware and at the bedside. 4. Hold stool softeners for now. 5. We will reconsider ABx, patient had completed 5 days of ABx, renally dosed Unasyn, 1.5q12. FULL CODE Avoid anticoagulation and NSAIDs ALPS for dvt ppx Consult Acknowledgment - Thank you for your consult request. BALDEMAR DICK MD 02/15/17 1042: Assessment/Plan Other Findings/Comments: Baldemar Ko M.D. have examined this patient, reviewed available EMR data, personally reviewed images, discussed with resident/PA/LONGITUDINAL FLOAT OPERATOR, discussed management plan with housestaff and nursing staff, discussed managment plan all of healthcare providers, discussed management plan with patient and/or family, agreed with resident/PA/LONGITUDINAL FLOAT OPERATOR. The past history and parts of the chart have been autopopulated. TTS 40 min Consult Acknowledgment - Thank you for your consult request.
--- NOTE | 2017-02-14 17:49 | Proc Note Colonoscopy ---
Colonoscopy Procedure Medical History: unchanged (see [facility] notes) Mental Status: alert/oriented Heart/Lung Eval Prior to Sedation: within normal limits Candidate for Sedation? Yes Date of Last Colonoscopy: No prior colonoscopy. Procedure Date: 02/14/17 Procedure Type: flexible sigmoidoscopy with BiCAP cautery, epi injection, & clip placement Marketing Production Specialist: Celso Landa MD ASA Classification: III Indications: Rectal bleeding with hypotension and tachycardia. Instrument (Colonoscope): double channel Meds Received: MAC Patient's Tolerance: good Complications: none Extent Reached: 40 cm from the anus Prep: adequate Procedure: After getting written informed consent the patient was placed in the left lateral decubitus position with pulse oximetry, cardiac monitoring, and supplemental oxygen was given. IV sedation was given until the desired effect was achieved. A rectal exam was performed which revealed 2 setons, but was otherwise unremarkable. A high definition variable stiffness Olympus colonoscope was then inserted into the anus and advanced to 40 cm from the anus. Retroflexed views were obtained and photodocumentation was obtained. Close inspection of the colonic mucosa was performed on insertion and withdrawal of the colonoscope with a withdrawal time that was adequate in length to closely inspect all visualized folds and alford of the colon. Findings: In the distal rectum approximately 1-2 cm proximal to the dentate line was a prominent, nonbleeding visible vessel with surrounding mucosa that was normal in appearance (ie not ulcerated). Retroflexed views in the rectum also appreciated the visible vessel along with 2 other shallow ulcers and small nonbleeding internal hemorrhoids. The base of the vessel was injected with 3 mL 1-10,000 epinephrine using a scleral needle and then extensive BiCAP cautery was applied to obliterate the vessel and control active bleeding. After extensive cautery was performed there was still a small amount of oozing which was controlled by placement of 2 hemoclips. There was a 6 mm pedunculated polyp in the sigmoid colon colon which was left in place. The remainder of the visualized colonic mucosa to 40 cm from the anus was grossly normal in appearance and there was brown stool appreciated proximal to the rectum. Impression: 1. 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 2. Shallow stercoral ulcerations in the distal rectum. 3. 6 mm sigmoid polyp left in place. 4. Small internal hemorrhoids. Recommendations: 1. Continue ICU monitoring for now. 2. Follow CBCs every 8 hours and transfuse as needed to keep his hemoglobin greater than 7 or as per cardiology recommendations. 3. Continue stool softeners. 4. Notify GI for hemodynamically significant GI bleeding in which case consideration will be given to repeat the sigmoidoscopy for additional treatment vs surgical intervention. 5. If he remains without active bleeding will tentatively plan to pursue a full colonoscopy as an outpatient to remove the polyp and further evaluate his anemia. Followup Colonscopy Screen In: in 1-2 months as an outpatient CC: MAEVE ALVARADO MD,RENATA
[2017-02-14 23:37] LABS: ABSOLUTE BASOPHIL COUNT 0.1 /CUMM (0.0-0.2); ABSOLUTE EOSINOPHIL COUNT 0.2 /CUMM (0.0-0.7); ABSOLUTE GRANULOCYTE CT 9.3 /CUMM (1.4-6.5); ABSOLUTE LYMPH COUNT 2.1 /CUMM (1.2-3.4); ABSOLUTE MONOCYTE COUNT 0.9 /CUMM (0.10-0.60); BASOPHIL % 0.5 % (0.0-2.0); EOSINOPHIL % 1.6 % (0-5); GRANULOCYTE % 73.8 % (42.2-75.2); HEMATOCRIT 28.6 % (42-52); MEAN CORPUSCULAR HGB 27.8 PG (27.0-31.0); MEAN CORPUSCULAR HGB CONC 32.7 G/DL (33.0-37.0); MEAN CORPUSCULAR VOLUME 85.1 FL (80.0-94.0); MEAN PLATELET VOLUME 6.8 FL (7.4-10.4); PLATELET COUNT 362 /CUMM (130-400); RBC DISTRIBUTION WIDTH 17.1 % (11.5-14.5); RED BLOOD CELL CT 3.36 /CUMM (4.70-6.10); WHITE BLOOD CELL COUNT 12.6 /CUMM (4.8-10.8)
[2017-02-15 05:53] LABS: ABSOLUTE BASOPHIL COUNT 0.1 /CUMM (0.0-0.2); ABSOLUTE EOSINOPHIL COUNT 0.3 /CUMM (0.0-0.7); ABSOLUTE GRANULOCYTE CT 8.8 /CUMM (1.4-6.5); ABSOLUTE LYMPH COUNT 1.8 /CUMM (1.2-3.4); ABSOLUTE MONOCYTE COUNT 0.7 /CUMM (0.10-0.60); BASOPHIL % 0.8 % (0.0-2.0); EOSINOPHIL % 2.6 % (0-5); GRANULOCYTE % 75.1 % (42.2-75.2); HEMATOCRIT 29.5 % (42-52); MEAN CORPUSCULAR HGB 27.9 PG (27.0-31.0); MEAN CORPUSCULAR HGB CONC 32.6 G/DL (33.0-37.0); MEAN CORPUSCULAR VOLUME 85.5 FL (80.0-94.0); MEAN PLATELET VOLUME 7.3 FL (7.4-10.4); PLATELET COUNT 339 /CUMM (130-400); RBC DISTRIBUTION WIDTH 17.9 % (11.5-14.5); RED BLOOD CELL CT 3.45 /CUMM (4.70-6.10); WHITE BLOOD CELL COUNT 11.7 /CUMM (4.8-10.8)
--- NOTE | 2017-02-15 06:20 | NUR ---
AVSS.A/OX3.FOLLOW COMMANDS.KO WITH +CMS.C'O GEN DISCOMFORT AND TYLENOL GIVEN WITH GOOD EFFECT.BUTTOCKS INCISION INTACT.
[2017-02-15 08:00] VITALS: BP 140/70
--- NOTE | 2017-02-15 09:54 | RADIOLOGY REPORT ---
EXAMINATION: XR KNEE, RIGHT CLINICAL INFORMATION: Pain swelling right knee COMPARISON: None TECHNIQUE: Four views of the right knee performed portably FINDINGS: There are slightly limited exam given the obliquity of the lateral view. The examination was performed portably There is metallic hardware partially visualized overlying the distal femur compatible with orthopedic fixation. There is severe joint space narrowing of the lateral compartment with some marginal osteophytes indicative of severe arthrosis. There are small marginal osteophytes about the medial compartment without joint space narrowing indicative of mild arthrosis. Patellofemoral compartment is unremarkable. There is no effusion. Arterial calcification present. IMPRESSION: Slightly limited examination given the projections obtained. Exam was performed portably. 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 No fracture or acute abnormality. Orthopedic fixation partially visualized. Calcific atherosclerotic disease.
--- NOTE | 2017-02-15 10:05 | Transfer of Care Summary ---
Hospital Course Course Hospital Course: 71 old gentleman with multiple perianal fistula and cellulitis with severe consitpation, fecal impaction admitted to [facility]. 2 units of PRBC transfused in view of low hemoglobin. Patient was operated on (02/10/17) for multiple perirectal fistula repair and abscess drainage. Patient had significant intraoperative blood loss, and hence transferred to ICU for close monitoring. Due to significant intraoperative blood loss further 2 units of blood transfusion given. Patient was transferred back to [facility] next day. Yesterday (02/14/2017) patient had significant amount of bleeding per rectum, hence transferred back to ICU for monitoring. Urgent sigmoidoscopy was performed. Surgery course uneventful. 1 unit of PRBC was transfused in ICU. Patient complained of right knee pain since morning. On examination right knee swelling +, warmth+, no redness, restriction of movement +. X-ray of the right knee ordered. ortho consult placed. Significant Procedures: 1 . Fecal disimpaction and removal. 2. Multiple perianal fistula repair done. 3. Abscess around the perianal area drained. 4. Sigmoidoscopy Complications: * Bleeding per rectum * Acute blood loss Assessment/Plan: Impression/Plan: 71-year-old gentleman status post perianal fistula repair, fecal disimpaction, I & D of abscess, status post flexible sigmoidoscopy with BiCPAP cautery, epi injection, clip placement. Patient has got 6 PRBC since admission. Hemoglobin today is 9.6. Patient is comfortable at rest, not dyspneic, not tachypneic. No further episodes of bleeding per rectum. Patient can be transferred to general medicine. Patient complained of right knee pain since morning. On examination right knee swelling +, warmth+, no redness, restriction of movement +. X-ray of the right knee ordered. ortho consult placed Plan: 1) S/P perirectal fistula repair/flexible sigmoidoscopy-clip placement. * Patient is on day 4 Unasyn. GI consult 02/15/2017 Recommendations: 1. Continue ICU monitoring for now. 2. Follow CBCs every 8 hours and transfuse as needed to keep his hemoglobin greater than 7 or as per cardiology recommendations. 3. Continue stool softeners. 4. Notify GI for hemodynamically significant GI bleeding in which case consideration will be given to repeat the sigmoidoscopy for additional treatment. 5. If he remains without active bleeding will tentatively plan to pursue a full colonoscopy as an outpatient to remove the polyp and further evaluate his anemia. Sugery consult: Bowel regimen keep stool soft, monitor H&H, if patient rebleeds will need to go to OR for oversewing of ulcer 2) chronic anemia * 6 units of PRBC transfused since admission * His hemoglobin today is 9.6,hematocrit of 29.5 * Patient is doing fine. Attending MD Review Statement Documenting Attending: IMANI BALL MD
--- NOTE | 2017-02-15 10:46 | PN- CRCU ---
Subjective HPI/Critical Care Issues: pt seen and examined normotensive hgb stable s/p sigmoidoscopy and stabilization of bleeding right knee swelling and pain Objective Current Medications: Current Medications Sig/Amy Start time Last Medication Dose Route Stop Time Status Admin Acetaminophen 650 MG TID PRN 02/15 0945 DC PO Acetaminophen 650 MG Q6P PRN 02/09 1630 AC 02/15 PO 0443 Acetaminophen 1,000 MG Q6P PRN 02/09 1630 AC IV Ampicillin Sodium/ 1,500 MG Q12H 02/11 0700 DC 02/14 Sulbactam Sodium IV 1925 Sodium Chloride 100 ML Docusate Sodium 100 MG BID 02/12 2200 AC 02/14 PO 2248 Morphine Sulfate 1 MG ONCE ONE 02/14 1800 DC 02/14 IV 02/14 1801 1824 Norepinephrine 4 MG .STK-MED ONE 02/14 1509 DC IV 02/14 1510 Polyethylene Glycol 1 GAL ONCE ONE 02/14 1600 DC PO 02/14 1601 Polyethylene Glycol 1 GAL ONCE ONE 02/14 1415 DC PO 02/14 1416 Polyethylene Glycol 17 GM DAILY 02/10 0045 AC 02/14 PO 0910 Senna 187 MG AT BEDTIME 02/10 0045 AC 02/14 PO 2249 Simethicone 80 MG ONCE ONE 02/14 1800 DC 02/14 PO 02/14 1801 2248 Sodium Bicarbonate 325 MG 4 TIMES/DAY 02/09 1800 AC 02/14 PO 2249 Sodium Chloride 1,000 ML BOLUS ONE 02/14 1515 DC 02/14 IV 02/14 1614 1500 Sodium Phosphate 1 UNIT .[TWICE] 02/14 1530 AC 02/14 NC 1530 Vital Signs & I&O Last 24 Hrs of Vitals and I&O: Vital Signs Date Time Temp Pulse Resp B/P B/P Pulse O2 O2 Flow FiO2 Mean Ox Delivery Rate 02/15 0443 98.0 02/15 0141 95 Nasal 2.0L Cannula 02/14 1600 99 Nasal 2.0L Cannula 02/14 1600 98.1 86 16 112/59 99 Nasal 2.0L Cannula 02/14 1435 98.1 98 16 140/78 99 Room Air Intake & Output 02/15 1600 02/15 0800 07 0000 Intake Total 1000 Output Total 380 350 Balance -380 650 Intake, IV 800 Intake, Oral 200 Number 1 Bowel Movements Output, Urine 380 350 Exam Other Physical Findings: Gen - alert and awake HEENT - NCAT CVS - S1, S2, no murmurs, rubs or gallops Lungs - clear to auscultation bilaterally Abdomen - soft, non-tender, bs+ Ext - no edema, no cyanosis, right knee swelling and tenderness Results Last 24 Hrs of Lab Results: Laboratory Tests 02/15/17 0454: Anion Gap 11, Estimated GFR 23 L, Glucose 79, Calcium 8.0 L, Phosphorus 5.6 H , Magnesium 2.3, Total Bilirubin 0.5, AST 10 L, ALT 21, Albumin 2.2 L, CBC w Diff NO MAN DIFF REQ, RBC 3.45 L, MCV 85.5, MCH 27.9, RDW 17.9 H, MPV 7.3 L, Gran % 75.1, Lymphocytes % 15.7 L, Monocytes % 5.8, Eosinophils % 2.6, Basophils % 0.8, Absolute Granulocytes 8.8 H, Absolute Lymphocytes 1.8, Absolute Monocytes 0.7 H, Absolute Eosinophils 0.3, Absolute Basophils 0.1, PUBS MCHC 32.6 L 02/14/17 2223: CBC w Diff NO MAN DIFF REQ, RBC 3.36 L, MCV 85.1, MCH 27.8, RDW 17.1 H, MPV 6.8 L, Gran % 73.8, Lymphocytes % 16.8 L, Monocytes % 7.3, Eosinophils % 1.6, Basophils % 0.5, Absolute Granulocytes 9.3 H, Absolute Lymphocytes 2.1, Absolute Monocytes 0.9 H, Absolute Eosinophils 0.2, Absolute Basophils 0.1, PUBS MCHC 32.7 L 02/14/17 1445: PT 13.4 H, INR 1.28 H, CBC w Diff NO MAN DIFF REQ, RBC 3.00 L, MCV 82.3, MCH 26.9 L, RDW 17.0 H, MPV 7.1 L, Gran % 71.1, Lymphocytes % 18.1 L, Monocytes % 6.8, Eosinophils % 3.7, Basophils % 0.3, Absolute Granulocytes 8.4 H, Absolute Lymphocytes 2.1, Absolute Monocytes 0.8 H, Absolute Eosinophils 0.4, Absolute Basophils 0, PUBS MCHC 32.7 L Impression/Plan Impression/Plan Impression/Plan: Impression 71 year old man * acute blood loss anemia, lower gi bleed * rectal surgery/local infection Plan -gi follow up -cbc monitoring -hemodynamically stable -no tele issues -DG gm -diet per gi -f/u colorectal sx DVT prophylaxis at all times (ALPS) TTS 35 min DG GM Code Status: Full Code
--- NOTE | 2017-02-15 11:32 | PN- General Surgery ---
Surgical Brief Attending Note Brief Attending Note: The patient denies any BM or rectal bleeding today The patient went to GI lab yesterday for recurrent bleeding. Was found to have actively bleeding stercoral ulceration. Patient is AVSS today with stable H&H Rectal exam setons in place no blood in undergarment Impression: Lower GI bleeding and air to stercoral ulceration now controlled after GI intervention. Plan: Bowel regimen keep stool soft, monitor H&H, if patient rebleeds will need to go to OR for oversewing of ulcer
--- NOTE | 2017-02-15 11:55 | NUR ---
PT REPORTED INTENSE ACHING IN HIS RIGHT KNEE RELIEVED WITH PO TYLENOL BUT STATES HE CANNOT MOVE HIS RIGHT KNEE WITHOUT SEVERE PAIN. THE KNEE IS EDEMATOUS AND VERY WARM TO TOUCH. ICU ACADEMIC GUIDANCE SPECIALIST NOTIFIED AND SAW PATIENT. PORTABLE XRAY OF KNEE WAS DONE.
--- NOTE | 2017-02-15 12:29 | NUR ---
PT IS TOLERATING PO CLEAR LIQUIDS WELL. HE HAS VOIDED 500 MLS OF TAY URINE AT 1030 POST NEWSOME REMOVAL.
[2017-02-15 13:25] VITALS: BP 122/70
--- NOTE | 2017-02-15 13:51 | PN- CRCU ---
Subjective HPI/Critical Care Issues: I saw the patient personally today at bedside. Patient slept well. Patient is afebrile, saturating well at room air. Vitals are stable. No overnight complaints. Patient complains of right knee pain and swelling since morning. Pain score 5/ 10. On examination swelling+, warmth+, mild tenderness+, no redness. X-ray right knee ordered. ortho consult placed. Objective Current Medications: Current Medications Sig/Amy Start time Last Medication Dose Route Stop Time Status Admin Acetaminophen 650 MG TID PRN 02/15 0945 DC PO Acetaminophen 650 MG Q6P PRN 02/09 1630 AC 02/15 PO 1053 Acetaminophen 1,000 MG Q6P PRN 02/09 1630 AC IV Ampicillin Sodium/ 1,500 MG Q12H 02/11 0700 DC 02/14 Sulbactam Sodium IV 1925 Sodium Chloride 100 ML Docusate Sodium 100 MG BID 02/12 2200 AC 02/15 PO 1050 Morphine Sulfate 1 MG ONCE ONE 02/14 1800 DC 02/14 IV 02/14 1801 1824 Norepinephrine 4 MG .STK-MED ONE 02/14 1509 DC IV 02/14 1510 Polyethylene Glycol 17 GM DAILY 02/10 0045 AC 02/15 PO 1050 Senna 187 MG AT BEDTIME 02/10 0045 AC 02/14 PO 2249 Simethicone 80 MG ONCE ONE 02/14 1800 DC / PO 02/14 1801 2248 Sodium Bicarbonate 325 MG 4 TIMES/DAY 02/09 1800 AC 02/15 PO 1050 Sodium Chloride 1,000 ML BOLUS ONE 02/14 1515 DC 02/14 IV 02/14 1614 1500 Sodium Phosphate 1 UNIT .[TWICE] 02/14 1530 AC 02/14 IN 1530 Vital Signs & I&O Last 24 Hrs of Vitals and I&O: Vital Signs Date Time Temp Pulse Resp B/P B/P Pulse O2 O2 Flow FiO2 Mean Ox Delivery Rate 02/15 1325 98.5 96 18 122/70 100 Room Air 02/15 0800 99.0 76 20 140/70 99 Room Air 02/15 0443 98.0 02/15 0141 95 Nasal 2.0L Cannula 02/14 1600 99 Nasal 2.0L Cannula 02/14 1600 98.1 86 16 112/59 99 Nasal 2.0L Cannula 07/06 1435 98.1 98 16 140/78 99 Room Air Intake & Output 02/15 1600 02/15 0800 02/15 0000 Intake Total 1000 Output Total 380 350 Balance -380 650 Intake, IV 800 Intake, Oral 200 Number 1 Bowel Movements Output, Urine 380 350 Exam General Appearance: well developed/nourished, no apparent distress, awake, comfortable Head: atraumatic, normal appearance Neck: normal inspection, supple, full range of motion Respiratory: normal breath sounds, chest non-tender, no respiratory distress, lungs clear Cardiovascular: regular rate/rhythm Abdomen: normal bowel sounds, soft, non-tender, no organomegaly Extremities: normal inspection Skin: intact, pallor Results Last 24 Hrs of Lab Results: Laboratory Tests 02/15/17 1300: CBC w Diff NO MAN DIFF REQ, RBC 3.44 L, MCV 85.3, MCH 28.0, RDW 17.2 H, MPV 7.3 L, Gran % 80.8 H, Lymphocytes % 10.6 L, Monocytes % 6.4, Eosinophils % 1.9, Basophils % 0.3, Absolute Granulocytes 10.2 H, Absolute Lymphocytes 1.3, Absolute Monocytes 0.8 H, Absolute Eosinophils 0.2, Absolute Basophils 0, PUBS MCHC 32.8 L 02/15/17 0454: Anion Gap 11, Estimated GFR 23 L, Glucose 79, Calcium 8.0 L, Phosphorus 5.6 H , Magnesium 2.3, Total Bilirubin 0.5, AST 10 L, ALT 21, Albumin 2.2 L, CBC w Diff NO MAN DIFF REQ, RBC 3.45 L, MCV 85.5, MCH 27.9, RDW 17.9 H, MPV 7.3 L, Gran % 75.1, Lymphocytes % 15.7 L, Monocytes % 5.8, Eosinophils % 2.6, Basophils % 0.8, Absolute Granulocytes 8.8 H, Absolute Lymphocytes 1.8, Absolute Monocytes 0.7 H, Absolute Eosinophils 0.3, Absolute Basophils 0.1, PUBS MCHC 32.6 L 02/14/17 2223: CBC w Diff NO MAN DIFF REQ, RBC 3.36 L, MCV 85.1, MCH 27.8, RDW 17.1 H, MPV 6.8 L, Gran % 73.8, Lymphocytes % 16.8 L, Monocytes % 7.3, Eosinophils % 1.6, Basophils % 0.5, Absolute Granulocytes 9.3 H, Absolute Lymphocytes 2.1, Absolute Monocytes 0.9 H, Absolute Eosinophils 0.2, Absolute Basophils 0.1, PUBS MCHC 32.7 L 02/14/17 1445: PT 13.4 H, INR 1.28 H, CBC w Diff NO MAN DIFF REQ, RBC 3.00 L, MCV 82.3, MCH 26.9 L, RDW 17.0 H, MPV 7.1 L, Gran % 71.1, Lymphocytes % 18.1 L, Monocytes % 6.8, Eosinophils % 3.7, Basophils % 0.3, Absolute Granulocytes 8.4 H, Absolute Lymphocytes 2.1, Absolute Monocytes 0.8 H, Absolute Eosinophils 0.4, Absolute Basophils 0, PUBS MCHC 32.7 L Impression/Plan Impression/Plan Impression/Plan: 71-year-old gentleman status post perianal fistula repair, fecal disimpaction, I & D of abscess, status post flexible sigmoidoscopy with BiCPAP cautery, epi injection, clip placement. Patient has got 6 PRBC since admission. Hemoglobin today is 9.6. Patient is comfortable at rest, not dyspneic, not tachypneic. No further episodes of bleeding per rectum. Patient can be transferred to general medicine. Patient complains of right knee pain and swelling since morning. Pain score 5/ 10. On examination swelling+, warmth+, mild tenderness+ . X-ray right knee ordered. ortho consult placed. Plan: 1) S/P perirectal fistula repair/flexible sigmoidoscopy-clip placement. * Patient is on day 4 Unasyn. GI consult 02/15/2017 Recommendations: 1. Continue ICU monitoring for now. 2. Follow CBCs every 8 hours and transfuse as needed to keep his hemoglobin greater than 7 or as per cardiology recommendations. 3. Continue stool softeners. 4. Notify GI for hemodynamically significant GI bleeding in which case consideration will be given to repeat the sigmoidoscopy for additional treatment. 5. If he remains without active bleeding will tentatively plan to pursue a full colonoscopy as an outpatient to remove the polyp and further evaluate his anemia. Sugery consult: Bowel regimen keep stool soft, monitor H&H, if patient rebleeds will need to go to OR for oversewing of ulce 2) chronic anemia * 6 units of PRBC transfused since admission * His hemoglobin today is 9.6,hematocrit of 29.5 * Patient is doing fine. Code Status: Full Code
--- NOTE | 2017-02-15 14:09 | NUR ---
PATIENT ARRIVED ON FLOOR TO ROOM # 226-1 AT 1320. PATIENT ALERT AND ORIENTED X 3. PT SEEMED A BIT IRRITATED UPON ARRIVAL BUT SETTLED SOON AFTERWARD. VSS. SKIN INTACT. RETENTION SUTURES INTACT TO RECTUM. PT DENIES ANY PAIN AT THIS TIME. WILL CONTINUE TO MONITOR CALL LIGHT WITHIN REACH.
[2017-02-15 14:19] LABS: ABSOLUTE BASOPHIL COUNT 0 /CUMM (0.0-0.2); ABSOLUTE EOSINOPHIL COUNT 0.2 /CUMM (0.0-0.7); ABSOLUTE GRANULOCYTE CT 10.2 /CUMM (1.4-6.5); ABSOLUTE LYMPH COUNT 1.3 /CUMM (1.2-3.4); ABSOLUTE MONOCYTE COUNT 0.8 /CUMM (0.10-0.60); BASOPHIL % 0.3 % (0.0-2.0); EOSINOPHIL % 1.9 % (0-5); GRANULOCYTE % 80.8 % (42.2-75.2); HEMATOCRIT 29.3 % (42-52); MEAN CORPUSCULAR HGB CONC 32.8 G/DL (33.0-37.0); MEAN CORPUSCULAR VOLUME 85.3 FL (80.0-94.0); MEAN PLATELET VOLUME 7.3 FL (7.4-10.4); PLATELET COUNT 347 /CUMM (130-400); RBC DISTRIBUTION WIDTH 17.2 % (11.5-14.5); RED BLOOD CELL CT 3.44 /CUMM (4.70-6.10); WHITE BLOOD CELL COUNT 12.6 /CUMM (4.8-10.8)
--- NOTE | 2017-02-15 16:15 | PN- Gastroenterology ---
Assessment/Plan Assessment/Recommendations: * Recurrent lower GI bleed secondary to expose rectal vessel, with hemostasis status post electrocautery/clip. * Constipation/fecal impaction, status post disimpaction * Perianal fistulous disease with abscesses, status post surgical therapy with insertion of setons. Recommendations * Advance to full liquid diet * Follow-up CBC in the morning * Bowel regimen to include MiraLAX daily * Without rebleeding, outpatient colonoscopy * If rebleeds, options include repeat endoscopic therapy versus operative management Subjective Subjective: No further bleeding status post puncture cautery/clipping of exposed rectal vessel. The patient states he had a bowel movement without blood. Objective Vital Signs and I&Os Vital Signs Date Time Temp Pulse Resp B/P B/P Pulse O2 O2 Flow FiO2 Mean Ox Delivery Rate 02/15 1325 98.5 96 18 122/70 100 Room Air 02/15 0800 99.0 76 20 140/70 99 Room Air 02/15 0443 98.0 02/15 0141 95 Nasal 2.0L Cannula Intake & Output 02/15 1600 02/15 0400 02/14 1600 02/14 0400 02/13 1600 02/13 0400 Intake Total 480 1000 2000 7829 568 5019 Output Total 380 350 438 877 8355 650 Balance 547 839 4380 1090 -260 860 Intake, IV 800 1100 725 200 110 Intake, Oral 480 200 900 099 616 4739 Number 2 2 0 0 Bowel Movements Output, Urine 380 350 110 478 4019 650 Physical Exam: Abdomen soft, nontender. Current Medications: Current Medications Sig/Amy Start time Last Medication Dose Route Stop Time Status Admin Acetaminophen 650 MG TID PRN 02/15 0945 DC PO Acetaminophen 650 MG Q6P PRN 02/09 1630 AC 02/15 PO 1053 Acetaminophen 1,000 MG Q6P PRN 02/09 1630 AC IV Ampicillin Sodium/ 1,500 MG Q12H 02/11 0700 DC 02/14 Sulbactam Sodium IV 1925 Sodium Chloride 100 ML Docusate Sodium 100 MG BID 02/12 2200 AC 02/15 PO 1050 Morphine Sulfate 1 MG ONCE ONE 02/14 1800 DC 02/14 IV 02/14 1801 1824 Polyethylene Glycol 17 GM DAILY 02/10 0045 AC 02/15 PO 1050 Senna 187 MG AT BEDTIME 02/10 0045 AC 02/14 PO 2249 Simethicone 80 MG ONCE ONE 02/14 1800 DC 02/14 PO 02/14 1801 2248 Sodium Bicarbonate 325 MG 4 TIMES/DAY 02/09 1800 AC 02/15 PO 1451 Sodium Chloride 1,000 ML BOLUS ONE 02/14 1515 DC 02/14 IV 02/14 1614 1500 Sodium Phosphate 1 UNIT .[TWICE] 02/14 1530 AC 02/14 VA 1530 Results Pertinent Lab Results: Laboratory Tests 02/15 02/15 1300 0454 Chemistry Sodium (137 - 145 mmol/L) 139 Potassium (3.5 - 5.1 mmol/L) 4.6 Chloride (98 - 107 mmol/L) 107 Carbon Dioxide (22 - 30 mmol/L) 21 L Anion Gap (5 - 16) 11 BUN (9 - 20 mg/dL) 46 H Creatinine (0.7 - 1.2 mg/dL) 2.7 H Estimated GFR (>60 ml/min) 23 L Glucose (65 - 99 mg/dL) 79 Calcium (8.4 - 10.2 mg/dL) 8.0 L Phosphorus (2.5 - 4.5 mg/dL) 5.6 H Magnesium (1.6 - 2.3 mg/dL) 2.3 Total Bilirubin (0.2 - 1.3 mg/dL) 0.5 AST (17 - 59 U/L) 10 L ALT (21 - 72 U/L) 21 Albumin (3.5 - 5.0 g/dL) 2.2 L Hematology CBC w Diff NO MAN DIFF REQ NO MAN DIFF REQ WBC (4.8 - 10.8 /CUMM) 12.6 H 11.7 H RBC (4.70 - 6.10 /CUMM) 3.44 L 3.45 L Hgb (14.0 - 18.0 G/DL) 9.6 L 9.6 L Hct (42 - 52 %) 29.3 L 29.5 L MCV (80.0 - 94.0 FL) 85.3 85.5 MCH (27.0 - 31.0 PG) 28.0 27.9 RDW (11.5 - 14.5 %) 17.2 H 17.9 H Plt Count (130 - 400 /CUMM) 347 339 MPV (7.4 - 10.4 FL) 7.3 L 7.3 L Gran % (42.2 - 75.2 %) 80.8 H 75.1 Lymphocytes % (20.5 - 51.1 %) 10.6 L 15.7 L Monocytes % (1.7 - 9.3 %) 6.4 5.8 Eosinophils % (0 - 5 %) 1.9 2.6 Basophils % (0.0 - 2.0 %) 0.3 0.8 Absolute Granulocytes (1.4 - 6.5 /CUMM) 10.2 H 8.8 H Absolute Lymphocytes (1.2 - 3.4 /CUMM) 1.3 1.8 Absolute Monocytes (0.10 - 0.60 /CUMM) 0.8 H 0.7 H Absolute Eosinophils (0.0 - 0.7 /CUMM) 0.2 0.3 Absolute Basophils (0.0 - 0.2 /CUMM) 0 0.1 PUBS MCHC (33.0 - 37.0 G/DL) 32.8 L 32.6 L 02/14 02/14 2223 1445 Coagulation PT (9.4 - 12.5 SEC) 13.4 H INR (0.90 - 1.17) 1.28 H Hematology CBC w Diff NO MAN DIFF REQ NO MAN DIFF REQ WBC (4.8 - 10.8 /CUMM) 12.6 H 11.8 H RBC (4.70 - 6.10 /CUMM) 3.36 L 3.00 L Hgb (14.0 - 18.0 G/DL) 9.4 L 8.1 L Hct (42 - 52 %) 28.6 L 24.7 L MCV (80.0 - 94.0 FL) 85.1 82.3 MCH (27.0 - 31.0 PG) 27.8 26.9 L RDW (11.5 - 14.5 %) 17.1 H 17.0 H Plt Count (130 - 400 /CUMM) 362 463 H MPV (7.4 - 10.4 FL) 6.8 L 7.1 L Gran % (42.2 - 75.2 %) 73.8 71.1 Lymphocytes % (20.5 - 51.1 %) 16.8 L 18.1 L Monocytes % (1.7 - 9.3 %) 7.3 6.8 Eosinophils % (0 - 5 %) 1.6 3.7 Basophils % (0.0 - 2.0 %) 0.5 0.3 Absolute Granulocytes (1.4 - 6.5 /CUMM) 9.3 H 8.4 H Absolute Lymphocytes (1.2 - 3.4 /CUMM) 2.1 2.1 Absolute Monocytes (0.10 - 0.60 /CUMM) 0.9 H 0.8 H Absolute Eosinophils (0.0 - 0.7 /CUMM) 0.2 0.4 Absolute Basophils (0.0 - 0.2 /CUMM) 0.1 0 PUBS MCHC (33.0 - 37.0 G/DL) 32.7 L 32.7 L 02/14 07/ 0745 0823 Chemistry Sodium (137 - 145 mmol/L) 140 Potassium (3.5 - 5.1 mmol/L) 4.7 Chloride (98 - 107 mmol/L) 108 H Carbon Dioxide (22 - 30 mmol/L) 24 Anion Gap (5 - 16) 9 BUN (9 - 20 mg/dL) 53 H Creatinine (0.7 - 1.2 mg/dL) 3.2 H Estimated GFR (>60 ml/min) 19 L BUN/Creatinine Ratio (7 - 25 %) 16.6 Hematology CBC w Diff NO MAN DIFF REQ NO MAN DIFF REQ WBC (4.8 - 10.8 /CUMM) 10.2 9.2 RBC (4.70 - 6.10 /CUMM) 3.23 L 3.49 L Hgb (14.0 - 18.0 G/DL) 8.8 L 9.4 L Hct (42 - 52 %) 26.7 L 28.7 L MCV (80.0 - 94.0 FL) 82.6 82.3 MCH (27.0 - 31.0 PG) 27.1 26.9 L RDW (11.5 - 14.5 %) 17.3 H 17.3 H Plt Count (130 - 400 /CUMM) 375 421 H MPV (7.4 - 10.4 FL) 7.0 L 7.2 L Gran % (42.2 - 75.2 %) 68.5 66.5 Lymphocytes % (20.5 - 51.1 %) 19.1 L 20.4 L Monocytes % (1.7 - 9.3 %) 8.2 8.2 Eosinophils % (0 - 5 %) 3.7 4.5 Basophils % (0.0 - 2.0 %) 0.5 0.4 Absolute Granulocytes (1.4 - 6.5 /CUMM) 7.0 H 6.1 Absolute Lymphocytes (1.2 - 3.4 /CUMM) 2.0 1.9 Absolute Monocytes (0.10 - 0.60 /CUMM) 0.8 H 0.8 H Absolute Eosinophils (0.0 - 0.7 /CUMM) 0.4 0.4 Absolute Basophils (0.0 - 0.2 /CUMM) 0.1 0 PUBS MCHC (33.0 - 37.0 G/DL) 32.8 L 32.7 L
--- NOTE | 2017-02-15 18:09 | Cons- Orthopedic ---
General Information and HPI Consulting Request Date of Consult: 02/15/17 Requested By: ORLIN DICK MD Reason for Consult: PAIN RIGHT KNEE History of Present Illness: PATIENT 71 Y/O MALE ADMITTED FOR gi ISSUES NOTED TO HAVE SOME SWELLING RIGHT KNEE.PATIENT HAS UNDERLYING SEVERE OSTEOARTHRITIS ON XRAYS . 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 PATIENT STATES HARD TO BEND THE KNEE FULLY. HAS HAD NO REDNESS OR ERYTHEMA AROUND THE KNEE.HAS PAIN WITH WAALKING. Allergies/Medications Allergies: Coded Allergies: No Known Allergies (02/09/17) Home Med List: Aspirin (Ecotrin*) 81 MG TABLET.DR 1 TAB PO DAILY HEART/BLOOD (Reported) Calcitriol (Rocaltrol) 0.25 MCG CAPSULE 1 CAP PO DAILY SUPPLEMENT (Reported) Cholecalciferol (Vitamin D3) (Vitamin D3) 1,000 UNIT CAPSULE 1 CAP PO DAILY VITAMIN SUPPORT (Reported) Furosemide 40 MG TABLET 1 TAB PO Saturday DIURETIC (Reported) Lisinopril (Prinivil) 20 MG TABLET 1 TAB PO DAILY BP (Reported) Metoprolol Succinate 50 MG TAB.ER.24H 1.5 TAB PO DAILY BP (Reported) Simvastatin (Simvastatin*) 20 MG TABLET 1 TAB PO QPM CHOLESTEROL (Reported) Sodium Bicarbonate 650 MG TABLET 2 TAB PO DAILY ANTACID (Reported) Past History Medical History Blood Transfusion Hx: No Neurological: NONE EENT: NONE Cardiovascular: CHF, hypertension Respiratory: NONE Gastrointestinal: constipation Hepatic: NONE Renal: chronic kidney disease Musculoskeletal: NONE Psychiatric: NONE Endocrine: NONE Blood Disorders: NONE 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 Home Services at Home: None Primary Language: Cuban Smoking Status: Former Smoker ETOH Use: denies use Illicit Drug Use: denies illicit drug use Exam & Diagnostic Data Vital Signs and I&O Vital Signs Date Time Temp Pulse Resp B/P B/P Pulse O2 O2 Flow FiO2 Mean Ox Delivery Rate 02/15 1325 98.5 96 18 122/70 100 Room Air 02/15 0800 99.0 76 20 140/70 99 Room Air 02/15 0443 98.0 02/15 0141 95 Nasal 2.0L Cannula Intake & Output 02/15 1600 02/15 0800 0707 0000 02/14 1600 02/14 0800 02/14 0000 Intake Total 480 1000 9630 021 1046 Output Total 380 350 550 575 Balance 480 -271 356 5225 -450 1090 Intake, IV 800 1000 100 725 Intake, Oral 480 200 900 940 Number 1 1 2 Bowel Movements Output, Urine 380 350 550 575 Physical Exam: Patient is a 71-year-old male is alert oriented on physical examination has some mild swelling of the right knee no erythema he has crepitus of the patellofemoral joint on physical exam. He has osteophytes and pain along both joint lines. There is limited range of motion from about -5 to about 90 in the bed today. He is neurologically grossly intact his ligaments are intact to stress testing. His x-rays show severe osteoarthritis of the knee on the right side. He also has loss of patellofemoral cartilage. He does have a small effusion. Assessment/Plan Assessment/Plan Assessment is osteoarthritis right knee. Also has chondromalacia patella. The plan at this point time is for icing 3-4 times a day for 15-20 minutes. The medical team can use an anti-inflammatory of choice for this patient but he should be on something for at least a couple of weeks or at least a Medrol Dosepak. I see no reason orthopedically for any interventional treatment to this knee at this point in time. He can follow-up as an outpatient at this point in time for his severe osteoarthritis. Consult Acknowledgment - Thank you for your consult request.
[2017-02-15 21:50] VITALS: BP 120/60
--- NOTE | 2017-02-16 04:14 | PN- Housestaff ---
See Addendum Subjective Follow-up For: Acute blood loss anemia I&D of Perianal fistula/abscess (02/10/2017) Flex sigmoidoscopy with BiCAP cautery, epinephrine injection and clip placement (02/14/2017) Right knee swelling Complaints: right knee pain Subjective: Interval history: This morning he reports that the pain in his right knee this initially was not relieved with IV Tylenol but did obtain complete relief with oral Motrin. He also reports that he was able to sleep for quite a few hours after getting Rozerem. He denies any fever, chills, chest pain, shortness of breath, palpitations, nausea, abdominal pain or bloody stools. Review of Systems Constitutional: Reports: see HPI. EENTM: Reports: no symptoms. Cardiovascular: Reports: no symptoms. Respiratory: Reports: no symptoms. Gastrointestinal: Reports: see HPI. Musculoskeletal: Reports: see HPI. Objective Last 24 Hrs of Vital Signs/I&O Vital Signs Date Time Temp Pulse Resp B/P B/P Pulse O2 O2 Flow FiO2 Mean Ox Delivery Rate 02/15 2150 98.0 77 20 120/60 98 02/15 1325 98.5 96 18 122/70 100 Room Air 02/15 0800 99.0 76 20 140/70 99 Room Air Intake & Output 02/16 0800 02/16 0000 02/15 1600 Intake Total 480 480 Output Total 500 Balance -20 480 Intake, Oral 480 480 Number 1 1 Bowel Movements Output, Urine 500 Physical Exam General Appearance: Alert, Cooperative, easily arousable. No acute distress Skin: No Breakdown, No evidence of erythema around the right knee Skin Temp/Moisture Exam: Warm/Dry HEENT: Mucous Membr. moist/pink Cardiovascular: Regular Rate, Normal S1, Normal S2 Lungs: Clear to Auscultation, Normal Air Movement Abdomen: Normal Bowel Sounds, Soft, hyperactive bowel sounds Current Medications: Current Medications Sig/Amy Start time Last Medication Dose Route Stop Time Status Admin Acetaminophen 1,000 MG .STK-MED ONE 02/15 191 DC IV 02/15 1920 Acetaminophen 650 MG TID PRN 02/15 0945 DC PO Acetaminophen 650 MG Q6P PRN 02/09 1630 AC 02/15 PO 1053 Acetaminophen 1,000 MG Q6P PRN 02/09 1630 AC 02/15 IV 1923 Ampicillin Sodium/ 1,500 MG Q12H 02/11 0700 DC 02/14 Sulbactam Sodium IV 1925 Sodium Chloride 100 ML Docusate Sodium 100 MG BID 02/12 2200 AC 02/15 PO 2224 Ibuprofen 600 MG ONCE ONE 02/15 2245 DC 02/15 PO 02/15 224 2314 Polyethylene Glycol 17 GM DAILY 02/10 0045 AC 02/15 PO 1050 Ramelteon 8 MG ONCE ONE 02/16 021 DC 02/16 PO 02/166 0205 Senna 187 MG AT BEDTIME 02/10 0045 AC 02/15 PO 2223 Sodium Bicarbonate 325 MG 4 TIMES/DAY 02/09 1800 AC 02/15 PO 2223 Sodium Phosphate 1 UNIT .[TWICE] 02/14 1530 AC 02/14 [place] 1530 Last 24 Hrs of Lab/Matt Results Last 24 Hrs of Labs/Mics: Laboratory Tests 02/15/17 1300: CBC w Diff NO MAN DIFF REQ, RBC 3.44 L, MCV 85.3, MCH 28.0, RDW 17.2 H, MPV 7.3 L, Gran % 80.8 H, Lymphocytes % 10.6 L, Monocytes % 6.4, Eosinophils % 1.9, Basophils % 0.3, Absolute Granulocytes 10.2 H, Absolute Lymphocytes 1.3, Absolute Monocytes 0.8 H, Absolute Eosinophils 0.2, Absolute Basophils 0, PUBS MCHC 32.8 L Assessment/Plan Assessment: 71-year-old gentleman with a PMH of [id number] tobacco use, hypertension, hyperlipidemia, chronic kidney disease, chronic anemia, stage II diastolic heart failure (echocardiogram in 2010) who presented to [place] with an extended period of perirectal and rectal discomfort, occasional bloody stool and spotting. CT imaging on admission showed a large amount of stool in the rectum with distention up to 6 cm in transverse diameter suggesting fecal impaction. Mild inflammatory changes posterior to cecum. The patient was found to have a drop in H&H and taken to the operating room on hospital day #1 where he underwent an I&D of the perianal fistula and abscesses on 02/10/2017. Intraoperative acute blood loss anemia requiring 2 units of transfusion and postprocedure stay in the ICU. On hospital day #5 the patient passed multiple large clots with resultant hypotension and again transferred to the ICU where he did receive 2 more units of transfusion and underwent a flexible sigmoidoscopy with BiCAP cautery, epinephrine injection and clip placement on 02/14/2017. Problem list: 1. I&D of perianal fistula/abscess (02/10/2017) 2. Acute blood loss anemia 3. Flex sigmoidoscopy with BiCAP cautery, epinephrine injection and clip placement (02/14/2017) 4. Left wrist pain 5. Right knee swelling 6. Leukocytosis 7. Chronic kidney disease Plan: 1) S/P perirectal fistula repair * Per surgical recommendations we'll continue the patient on since sprays to perennial area 2-3 times a day, clean area dry * Per GI recommendations: Currently on clear liquid. Will discuss opportunity to start the patient on advanced diet at this time and any restrictions in consistency ?? low residue * Patient is completed 11 doses Unasyn 1.5 mg IV Q12. Blood cultures from admission have remained negative thus far 2) Acute on Chronic blood loss Anemia * H&H remained stable thus far status post 6 unit transfusions during his hospital course. 3. Left wrist pain/right knee pain: * On presentation the patient complained of pain in his left wrist. Follow-up x -ray did show degenerative changes of the base of the thumb * Experiencing complaints of right knee pain that was acute in nature with no preceding trauma. A follow-up x-ray showed tricompartmental osteoarthritis with degenerative changes most prominent severe lateral compartment. No fracture * Uric acid level came back elevated at 14.2 * Orthopedic recommendations at this time: Icing 3-4 times a day for 15-20 minutes, anti-inflammatory for a few weeks or a Medrol Dosepak. No plan at this time for any interventional treatment 4.Chronic smoker * quit 2 years ago: Qualifies for low-dose CT for lung cancer screening. Proceed with portable chest x-ray for now, CT as an outpatient. 5. Weakness: * Decondition in the setting of chronic disease and acute illness * Physical therapy to work with patient and provide recommendations for discharge disposition Holidng Lasix and anti-hypertensives. Full code. Mechanical-given anemia and possibility of blood loss. Full liquid diet Rozerem for sleep Problem List: 1. Cellulitis of rectal area 2. Perianal fistula 3. Acute blood loss anemia 4. Chronic renal failure Pain Ratin Pain Location: Right knee Pain Goal: Pain 4 or less Pain Plan: Pain pathway with NSAIDs Tomorrow's Labs & Rationales: CBC: Trending H&H DVT/Prophylaxis: pharmacological
[2017-02-16 06:47] VITALS: BP 98/60
[2017-02-16 08:48] LABS: ABSOLUTE BASOPHIL COUNT 0.1 /CUMM (0.0-0.2); ABSOLUTE EOSINOPHIL COUNT 0.3 /CUMM (0.0-0.7); ABSOLUTE GRANULOCYTE CT 7.8 /CUMM (1.4-6.5); ABSOLUTE LYMPH COUNT 1.7 /CUMM (1.2-3.4); ABSOLUTE MONOCYTE COUNT 1.1 /CUMM (0.10-0.60); BASOPHIL % 0.5 % (0.0-2.0); GRANULOCYTE % 71.2 % (42.2-75.2); MEAN CORPUSCULAR HGB 27.7 PG (27.0-31.0); MEAN CORPUSCULAR HGB CONC 32.5 G/DL (33.0-37.0); MEAN CORPUSCULAR VOLUME 85.1 FL (80.0-94.0); MEAN PLATELET VOLUME 7.3 FL (7.4-10.4); PLATELET COUNT 336 /CUMM (130-400); RBC DISTRIBUTION WIDTH 17.5 % (11.5-14.5); RED BLOOD CELL CT 3.17 /CUMM (4.70-6.10)
[2017-02-16 14:05] VITALS: BP 110/60
[2017-02-16 16:44] LABS: ABSOLUTE BASOPHIL COUNT 0.1 /CUMM (0.0-0.2); ABSOLUTE EOSINOPHIL COUNT 0.3 /CUMM (0.0-0.7); ABSOLUTE GRANULOCYTE CT 7.2 /CUMM (1.4-6.5); ABSOLUTE LYMPH COUNT 1.5 /CUMM (1.2-3.4); BASOPHIL % 0.5 % (0.0-2.0); EOSINOPHIL % 3.4 % (0-5); GRANULOCYTE % 71.4 % (42.2-75.2); HEMATOCRIT 27.1 % (42-52); MEAN CORPUSCULAR HGB 27.3 PG (27.0-31.0); MEAN CORPUSCULAR HGB CONC 32.1 G/DL (33.0-37.0); MEAN CORPUSCULAR VOLUME 85.1 FL (80.0-94.0); MEAN PLATELET VOLUME 7.4 FL (7.4-10.4); PLATELET COUNT 332 /CUMM (130-400); RBC DISTRIBUTION WIDTH 17.8 % (11.5-14.5); RED BLOOD CELL CT 3.18 /CUMM (4.70-6.10); WHITE BLOOD CELL COUNT 10.1 /CUMM (4.8-10.8)
[2017-02-16 21:59] VITALS: BP 100/60
[2017-02-17 06:31] VITALS: BP 122/70
[2017-02-17 08:05] LABS: ABSOLUTE BASOPHIL COUNT 0 /CUMM (0.0-0.2); ABSOLUTE EOSINOPHIL COUNT 0.3 /CUMM (0.0-0.7); ABSOLUTE GRANULOCYTE CT 6.1 /CUMM (1.4-6.5); ABSOLUTE LYMPH COUNT 1.7 /CUMM (1.2-3.4); ABSOLUTE MONOCYTE COUNT 0.8 /CUMM (0.10-0.60); BASOPHIL % 0.5 % (0.0-2.0); EOSINOPHIL % 3.7 % (0-5); GRANULOCYTE % 67.7 % (42.2-75.2); HEMATOCRIT 25.4 % (42-52); MEAN CORPUSCULAR HGB 28.2 PG (27.0-31.0); MEAN CORPUSCULAR VOLUME 85.3 FL (80.0-94.0); MEAN PLATELET VOLUME 7.4 FL (7.4-10.4); PLATELET COUNT 336 /CUMM (130-400); RBC DISTRIBUTION WIDTH 17.7 % (11.5-14.5); RED BLOOD CELL CT 2.98 /CUMM (4.70-6.10)
--- NOTE | 2017-02-17 08:15 | PN- Housestaff ---
KIKA STANLEY,[facility] 02/17/17 0814: Subjective Follow-up For: Acute blood loss anemia I&D of Perianal fistula/abscess (02/10/2017) Flex sigmoidoscopy with BiCAP cautery, epinephrine injection and clip placement (02/14/2017) Right knee swelling Subjective: I have personally seen and examined the patient today. Denies any pain,fever, chills or events overnight. His knee pain is well controlled with the pain meds. Review of Systems Constitutional: Denies: see HPI. Objective Last 24 Hrs of Vital Signs/I&O Vital Signs Date Time Temp Pulse Resp B/P B/P Pulse O2 O2 Flow FiO2 Mean Ox Delivery Rate 02/17 1348 98.6 86 20 124/60 96 Room Air 02/17 0631 97.7 74 20 122/70 95 Room Air 02/16 2159 97.8 75 20 100/60 94 Intake & Output 02/17 1600 02/17 0800 02/17 0000 Intake Total 240 130 250 Output Total 400 1005 Balance -160 -875 250 Intake, IV 10 10 Intake, Oral 240 120 240 Number 2 Bowel Movements Output, Urine 400 1005 Physical Exam General Appearance: Alert, Oriented X3, Cooperative, No Acute Distress Other Physical Findings: Skin No Rashes HEENT Atraumatic, PERRLA, EOMI Neck Supple, No JVD Cardiovascular Regular Rate, Normal S1, Normal S2, No Murmurs Lungs Clear to Auscultation, Normal Air Movement Abdomen Normal Bowel Sounds, Soft, slight tenderness in LLQ, No Hepatospenomegaly, No Masses Neurological Normal Gait, Normal Speech, Strength at 5/5 X4 Ext, Normal Tone, Sensation Intact Extremities No Clubbing, No Cyanosis, No Edema, Normal Pulses, Normal Capillary Refill Vascular Normal Pulses Current Medications: Current Medications Sig/Amy Start time Last Medication Dose Route Stop Time Status Admin Acetaminophen 650 MG Q6P PRN 02/09 1630 AC 02/15 PO 1053 Acetaminophen 1,000 MG Q6P PRN 02/09 1630 AC 02/15 IV 1923 Docusate Sodium 100 MG BID 02/12 2200 AC 02/17 PO 0920 Melatonin 5 MG ONCE ONE 02/17 0100 DC 02/17 PO 02/17 0101 0117 Polyethylene Glycol 17 GM DAILY 02/10 0045 AC 02/17 PO 0920 Ramelteon 8 MG ONCE ONE 02/17 2000 DC 02/16 PO 02/16 Senna 187 MG AT BEDTIME 02/10 004 AC 02/16 PO 2052 Sodium Bicarbonate 325 MG 4 TIMES/DAY 02/09 1800 AC 02/17 PO 181 Sodium Phosphate 1 UNIT .[TWICE] 02/14 1530 AC 02/14 [place] 1530 Last 24 Hrs of Lab/Matt Results Last 24 Hrs of Labs/Mics: Laboratory Tests 02/17/17 0620: CBC w Diff NO MAN DIFF REQ, RBC 2.98 L, MCV 85.3, MCH 28.2, RDW 17.7 H, MPV 7.4, Gran % 67.7, Lymphocytes % 18.8 L, Monocytes % 9.3, Eosinophils % 3.7, Basophils % 0.5, Absolute Granulocytes 6.1, Absolute Lymphocytes 1.7, Absolute Monocytes 0.8 H, Absolute Eosinophils 0.3, Absolute Basophils 0, PUBS MCHC 33.0 Assessment/Plan Assessment: 71-year-old gentleman with a PMH of [id number]-owse tobacco use, hypertension, hyperlipidemia, chronic kidney disease, chronic anemia, stage II diastolic heart failure (echocardiogram in 2010) who presented to [place] with an extended period of perirectal and rectal discomfort, occasional bloody stool and spotting. CT imaging on admission showed a large amount of stool in the rectum with distention up to 6 cm in transverse diameter suggesting fecal impaction. Mild inflammatory changes posterior to cecum. The patient was found to have a drop in H&H and taken to the operating room on hospital day #1 where he underwent an I&D of the perianal fistula and abscesses on 02/10/2017. Intraoperative acute blood loss anemia requiring 2 units of transfusion and postprocedure stay in the ICU. On hospital day #5 the patient passed multiple large clots with resultant hypotension and again transferred to the ICU where he did receive 2 more units of transfusion and underwent a flexible sigmoidoscopy with BiCAP cautery, epinephrine injection and clip placement on 02/14/2017. Problem list: 1. I&D of perianal fistula/abscess (02/10/2017) 2. Acute blood loss anemia 3. Flex sigmoidoscopy with BiCAP cautery, epinephrine injection and clip placement (02/14/2017) 4. Left wrist pain 5. Right knee swelling 6. Leukocytosis 7. Chronic kidney disease Plan: 1) S/P perirectal fistula repair * Per surgical recommendations we'll continue the patient on since sprays to perennial area 2-3 times a day, clean area dry * Per GI recommendations: Currently on clear liquid. Will discuss opportunity to start the patient on advanced diet at this time and any restrictions in consistency ?? low residue * Patient is completed 11 doses Unasyn 1.5 mg IV Q12. Blood cultures from admission have remained negative thus far 2) Acute on Chronic blood loss Anemia * H&H remained stable thus far status post 6 unit transfusions during his hospital course. 3. Left wrist pain/right knee pain: * On presentation the patient complained of pain in his left wrist. Follow-up x -ray did show degenerative changes of the base of the thumb * Experiencing complaints of right knee pain that was acute in nature with no preceding trauma. A follow-up x-ray showed tricompartmental osteoarthritis with degenerative changes most prominent severe lateral compartment. No fracture * Uric acid level came back elevated at 14.2 * Orthopedic recommendations at this time: Icing 3-4 times a day for 15-20 minutes, anti-inflammatory for a few weeks or a Medrol Dosepak. No plan at this time for any interventional treatment 4.Chronic smoker * quit 2 years ago: Qualifies for low-dose CT for lung cancer screening. Proceed with portable chest x-ray for now, CT as an outpatient. 5. Weakness: * Decondition in the setting of chronic disease and acute illness * Physical therapy to work with patient and provide recommendations for discharge disposition Holidng Lasix and anti-hypertensives. Full code. Mechanical-given anemia and possibility of blood loss. Full liquid diet Rozerem for sleep Problem List: 1. Cellulitis of rectal area 2. Fecal impaction 3. Acute blood loss anemia Pain Ratin Pain Location: Right knee Pain Goal: Remain pain free Pain Plan: pain pathway Tomorrow's Labs & Rationales: CBC( ABLA) ROBERT STANLEY,[facility] 02/17/17 0950: Attending MD Review Statement Attending Statement Attending MD Statement: examined this patient, discuss w/resident/PA/WARE SERVER, agreed w/resident/PA/WARE SERVER, reviewed EMR data (avail), discussed with nursing, amended to note Attending Assessment/Plan: Patient seen and examined. Resting comfortably not in acute distress. No issues overnight reported by nursing staff. Had a bowel movement this morning though guaiac-positive it showed no evidence of bright red blood. He is hemodynamically stable. His hemoglobin levels are stable as well. He remains extremely deconditioned and requires the assistance of the physical therapy service. We'll continue to monitor patient over supportive care. If he shows no significant improvement early in the week will begin discharge planning to custodial facility for short-term rehabilitation. No need for repeat serum chemistry tomorrow.
[2017-02-17 13:48] VITALS: BP 124/60
[2017-02-17 22:26] VITALS: BP 130/70
[2017-02-18 06:47] VITALS: BP 128/66
[2017-02-18 10:57] LABS: ABSOLUTE BASOPHIL COUNT 0.1 /CUMM (0.0-0.2); ABSOLUTE EOSINOPHIL COUNT 0.3 /CUMM (0.0-0.7); ABSOLUTE GRANULOCYTE CT 5.7 /CUMM (1.4-6.5); ABSOLUTE LYMPH COUNT 1.5 /CUMM (1.2-3.4); ABSOLUTE MONOCYTE COUNT 0.7 /CUMM (0.10-0.60); BASOPHIL % 0.8 % (0.0-2.0); EOSINOPHIL % 3.5 % (0-5); HEMATOCRIT 25.9 % (42-52); MEAN CORPUSCULAR HGB 28.2 PG (27.0-31.0); MEAN CORPUSCULAR HGB CONC 33.3 G/DL (33.0-37.0); MEAN CORPUSCULAR VOLUME 84.7 FL (80.0-94.0); MEAN PLATELET VOLUME 7.3 FL (7.4-10.4); PLATELET COUNT 352 /CUMM (130-400); RBC DISTRIBUTION WIDTH 17.9 % (11.5-14.5); RED BLOOD CELL CT 3.06 /CUMM (4.70-6.10); WHITE BLOOD CELL COUNT 8.3 /CUMM (4.8-10.8)
--- NOTE | 2017-02-18 11:36 | PN- Housestaff ---
See Addendum Subjective Follow-up For: Acute blood loss anemia I&D of Perianal fistula/abscess (02/10/2017) Flex sigmoidoscopy with BiCAP cautery, epinephrine injection and clip placement (02/14/2017) Right knee swelling Subjective: I have personally seen and examined the patient today. Patient is lying comfortably in his bed. Denies any fever, chills, shortness of breath, chest pain, dizziness or any overnight events. Have had no issues with the Bowel Movements and denies any blood per rectum. Review of Systems Constitutional: Denies: see HPI. Objective Last 24 Hrs of Vital Signs/I&O Vital Signs Date Time Temp Pulse Resp B/P B/P Pulse O2 O2 Flow FiO2 Mean Ox Delivery Rate 02/18 0954 Room Air 02/18 0647 97.6 74 16 128/66 96 Room Air 02/18 0000 Room Air 02/17 2226 98.8 76 20 130/70 94 02/17 1348 98.6 86 20 124/60 96 Room Air Intake & Output 02/18 1600 02/18 0800 02/18 0000 Intake Total 100 Output Total 500 Balance 100 -500 Intake, Oral 100 Output, Urine 500 Physical Exam General Appearance: Alert, Oriented X3, Cooperative, No Acute Distress Other Physical Findings: Skin No Rashes HEENT Atraumatic, PERRLA, EOMI Neck Supple, No JVD Cardiovascular Regular Rate, Normal S1, Normal S2, No Murmurs Lungs Clear to Auscultation, Normal Air Movement Abdomen Normal Bowel Sounds, Soft, No Hepatospenomegaly, No Masses Neurological Normal Gait, Normal Speech, Strength at 5/5 X4 Ext, Normal Tone, Sensation Intact Extremities No Clubbing, No Cyanosis, No Edema, Normal Pulses, Normal Capillary Refill Vascular Normal Pulses Current Medications: Current Medications Sig/Amy Start time Last Medication Dose Route Stop Time Status Admin Acetaminophen 650 MG Q6P PRN 02/09 1630 AC 02/15 PO 1053 Acetaminophen 1,000 MG Q6P PRN 02/09 1630 AC 02/15 IV 1923 Docusate Sodium 100 MG BID 02/120 AC 02/18 PO 1016 Polyethylene Glycol 17 GM DAILY 02/10 0045 AC 02/18 PO 1016 Ramelteon 8 MG AT BEDTIME 02/18 2200 AC PO Senna 187 MG AT BEDTIME 02/10 0045 AC 02/17 PO 2115 Sodium Bicarbonate 325 MG 4 TIMES/DAY 02/09 1800 AC 02/18 PO 1016 Sodium Phosphate 1 UNIT .[TWICE] 02/14 1530 AC 02/14 [place] 1530 Last 24 Hrs of Lab/Matt Results Last 24 Hrs of Labs/Mics: Laboratory Tests 02/18/17 1011: CBC w Diff NO MAN DIFF REQ, RBC 3.06 L, MCV 84.7, MCH 28.2, RDW 17.9 H, MPV 7.3 L, Gran % 69.0, Lymphocytes % 18.5 L, Monocytes % 8.2, Eosinophils % 3.5, Basophils % 0.8, Absolute Granulocytes 5.7, Absolute Lymphocytes 1.5, Absolute Monocytes 0.7 H, Absolute Eosinophils 0.3, Absolute Basophils 0.1, PUBS MCHC 33.3 Assessment/Plan Assessment: 71-year-old gentleman with a PMH of [id number]-aceb tobacco use, hypertension, hyperlipidemia, chronic kidney disease, chronic anemia, stage II diastolic heart failure (echocardiogram in 2010) who presented to [place] with an extended period of perirectal and rectal discomfort, occasional bloody stool and spotting. CT imaging on admission showed a large amount of stool in the rectum with distention up to 6 cm in transverse diameter suggesting fecal impaction. Mild inflammatory changes posterior to cecum. The patient was found to have a drop in H&H and taken to the operating room on hospital day #1 where he underwent an I&D of the perianal fistula and abscesses on 02/10/2017. Intraoperative acute blood loss anemia requiring 2 units of transfusion and postprocedure stay in the ICU. On hospital day #5 the patient passed multiple large clots with resultant hypotension and again transferred to the ICU where he did receive 2 more units of transfusion and underwent a flexible sigmoidoscopy with BiCAP cautery, epinephrine injection and clip placement on 02/14/2017. Problem list: 1. I&D of perianal fistula/abscess (02/10/2017) 2. Acute blood loss anemia 3. Flex sigmoidoscopy with BiCAP cautery, epinephrine injection and clip placement (02/14/2017) 4. Left wrist pain 5. Right knee swelling 6. Leukocytosis 7. Chronic kidney disease Plan: 1) S/P perirectal fistula repair * Per surgical recommendations we'll continue the patient on since sprays to perennial area 2-3 times a day, clean area dry * Patient switched to regular diet. * Patient is completed 11 doses Unasyn 1.5 mg IV Q12. Blood cultures from admission have remained negative thus far 2) Acute on Chronic blood loss Anemia * H&H remained stable thus far status post 6 unit transfusions during his hospital course. 3. Left wrist pain/right knee pain: * On presentation the patient complained of pain in his left wrist. Follow-up x -ray did show degenerative changes of the base of the thumb * Experiencing complaints of right knee pain that was acute in nature with no preceding trauma. A follow-up x-ray showed tricompartmental osteoarthritis with degenerative changes most prominent severe lateral compartment. No fracture * Uric acid level came back elevated at 14.2 * Orthopedic recommendations at this time: Icing 3-4 times a day for 15-20 minutes, anti-inflammatory for a few weeks or a Medrol Dosepak. No plan at this time for any interventional treatment 4.Chronic smoker * quit 2 years ago: Qualifies for low-dose CT for lung cancer screening. Proceed with portable chest x-ray for now, CT as an outpatient. 5. Weakness: * Decondition in the setting of chronic disease and acute illness * Physical therapy to work with patient and provide recommendations for discharge disposition Holidng Lasix and anti-hypertensives. Full code. Mechanical-given anemia and possibility of blood loss. Full liquid diet Rozerem for sleep Problem List: 1. Cellulitis of rectal area 2. Fecal impaction 3. Perianal fistula 4. Acute blood loss anemia 5. HTN (hypertension) Pain Ratin Pain Location: Knee Pain Goal: Remain pain free Pain Plan: Pain Pathway Tomorrow's Labs & Rationales: None
--- NOTE | 2017-02-18 13:03 | Discharge Summary ---
Visit Information Visit Dates Admission Date: 02/09/17 Discharge Date: 02/28/2017 Hospital Course Course Attending Physician: BOB RENTERIA MD Primary Care Physician: MAEVE ALVARADO Hospital Course: Mr Callejas is a 71-year-old gentleman with a PMH of HTN, HLD, CKD, chronic anemia, stage II diastolic heart failure, tobacco dependence at [id number] quit 2 years ago who presented to [facility] with complaints of a few months duration rectal pain, bright red blood per rectum ranging from spotting to heavy bleeding, occasional stools. He denied any sick contacts, changes in diet area he does endorse some progressive generalized weakness, loss in appetite and weight loss over the preceding few months. No previous colonoscopy performed. VS on admission: BP 106 of 61, HR 84, RR 50, SPO2 80% on RA, T 98.3 Pertinent physical exam findings admission: Perirectal area examined and noted to have areas of erythema, tenderness to palpation and significant skin breakdown appreciated. No active bleeding. Lungs CTA BL, RRR, normal S1/S2. No cyanosis Pertinent labs on admission: WBC 11.8, H&H 8.0/24.9, platelets 622K, sodium 140, potassium 4.6, chloride 109, bicarbonate 17, BUN/CR 74/2.9 We admitted the patient initially with a primary diagnosis of perirectal pain with possible proctitis however, significant turn of events ensued requiring emergent transfer to ICU and surgical interventions as will be summarized below: Problem list: 1. Incision and drainage of perianal abscess and fistula (02/10/17) 2. Fecal disimpaction (02/10/17) 3. Intraoperative acute blood loss anemia 4. 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 Landa -gastroenterology) 5. Blood clots per rectum, with immediate profound hypotension (02/19/2017): Oversewing of bleeding rectal ulcer in operating room (Dr. Wilson - colorectal surgery) 6. Acute on chronic stage IV kidney disease 7. Right knee swelling with history of osteoarthritis HOSPITAL COURSE: 1. Incision and drainage of perianal abscess and fistula, fecal disimpaction () * We obtained a CT abdomen pelvis that showed a limited evaluation for proctitis /abscess in the setting of absent IV contrast. There was evidence of a large amount of stool in the rectum with distention up to 6 cm in the transverse diameter suggestive of fecal impaction. Mild inflammatory changes in the posterior rectum and presacral region present. Also evidence of renal stones, left renal cortical cysts and atherosclerotic mild aneurysmal dilatation of the infrarenal abdominal aorta * The patient was assessed by our colorectal surgeon Dr. Wilson, taken to the operating room where he was found to have multiple perianal subcutaneous fistulous tracts and underwent I&D of perianal abscess and fistula. Sitz spray to perianal area 2-3 times a day * Initially the patient was started on Unasyn 0.5 g IV Q 8 for the DDX of proctitis which he received a total 11 doses and monitoredd of ABX the rest of the hospital stay. All cultures remained negative 2. Intraoperative acute blood loss anemia * Postprocedure complicated with rectal bleeding requiring transfer to ICU for close monitoring and transfusion of 4 units PRBC * Hemoglobin on admission of 8 that dropped to 7.4 corrected with 4 unit PRBC transfusions 3. 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 Landa -gastroenterology) * After a brief ICU stay with no dynamics instability, gradual diet advancement, the patient was again downgraded back to general medicine floor 5. Blood clots per rectum, with immediate profound hypotension (02/19/2017): Oversewing of bleeding rectal ulcer in operating room (Dr. Wilson - colorectal surgery) * Unfortunately 3 days later he again complained of abdominal discomfort and a sensation of the urge to have a BM which was followed by a repeat passage of bloody clots, noticeable pallor, dizziness, slight slurred speech, SBP in the 06 's which prompted the initiation of a RAPID RESPONSE, emergent transfer back to the ICU where he was assessed by colorectal surgery, general surgery and gastroenterology * The decision was made to take him to the operating room for examination under anesthesia. He was found to have very friable distal rectum with multiple circumferential superficial oozing ulcers and an exposed none bleeding blood vessel. He underwent oversewing of a bleeding rectal ulcer. Postprocedure recommendations were for serial H&H, CT with GI bleed protocol. Radiotracer identified bleeding that was isolated to the rectum however this was status post oversewing of the rectal ulcers * Is subsequently did undergo a bowel prep with Golyte and colonoscopy on 2016 and was found 4 polyps status post removal via combination of snare polyp rectum he and cold biopsy forceps. 2.5 cm transverse colon lipoma status post biopsies. Sigmoid diverticulosis without stigmata of recent hemorrhage. Evidence of prior surgery with an oversewn vessel seen in the distal rectum with minimal oozing of blood that ceased at the conclusion of the procedure * Follow up pathology as an outpatient, repeat colonoscopy in 3-5 years * Patient tolerated his diet advanced 6. Acute on chronic stage IV kidney disease * Transient worsening of baseline CKD secondary to prerenal etiology in the context of acute blood loss anemia. Stabilize with gradual fluid hydration 7. Right knee swelling with history of osteoarthritis * History of osteoarthritis of the right knee, chondromalacia patella with interval swelling during the hospital stay which was managed with anti- inflammatory and icing 3-4 times a day for 15-20 minutes 8. Constipation * Patient was noted to have intermittent episodes of constipation. Patient was put on a bowel regimen to maintain 2 bowel movements per day. 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 Landa -gastroenterology ) GI bleed with follow-up oversewing of bleeding rectal ulcer Acute on chronic stage IV kidney disease Discharge Disposition: SNF Discharge Instructions General Discharge Information Code Status: Full Code Patient's Diet: Heart Healthy Diet Patient's Activity: As Tolerated Follow-Up Instructions/Appts: Please take all medications as directed. Please monitor for any recurrence of bleeding and go to the emergency room immediately if this happens Please follow-up with your foam machine operator for biopsy results from previous colonoscopy. You will require a repeat colonoscopy in 3-5 years. Medications at Discharge Discharge Medications: Stop taking the following medications: Aspirin (Ecotrin*) 81 MG TABLET.DR ORAL DAILY Lisinopril (Prinivil) 20 MG TABLET ORAL DAILY Continue taking these medications: Metoprolol Succinate (Metoprolol Succinate) 50 MG TAB.ER.24H 1.5 Tablet ORAL DAILY Comments: 25 MG TAB Last Taken: 02/28/17 Time: 929 Simvastatin (Simvastatin*) 20 MG TABLET 1 Tablet ORAL Every night Comments: NOT GIVEN DURING THIS ADMISSION Furosemide (Furosemide) 40 MG TABLET 1 Tablet ORAL SATURDAY, SATURDAY AND SATURDAY Comments: NOT TAKEN Sodium Bicarbonate (Sodium Bicarbonate) 650 MG TABLET 2 Tablet ORAL DAILY Comments: Last Taken: 02/28/17 Time: 929 Cholecalciferol (Vitamin D3) (Vitamin D3) 1,000 UNIT CAPSULE 1 Capsule ORAL DAILY Comments: NOT TAKEN Calcitriol (Rocaltrol) 0.25 MCG CAPSULE 1 Capsule ORAL DAILY Comments: NOT TAKEN Start taking the following new medications: Ramelteon (Rozerem) 8 MG TABLET 1 Tablet ORAL AT BEDTIME as needed for Insomnia Qty = 30 No Refills Comments: Last Taken: 02/27/17 Time: 2129 Docusate Sodium (Docusate Sodium) 100 MG CAPSULE 1 Tablet ORAL TWICE DAILY Qty = 60 No Refills Instructions: Please take to maintain 2 soft bowel movements a day Comments: Last Taken: 02/28/17 Time:929 Polyethylene Glycol 3350 (Miralax) 17 GRAM/DOSE POWDER 1 Packet ORAL DAILY Qty = 30 No Refills Instructions: Please take to maintain 2 soft bowel movements a day Comments: Last Taken: 02/28/17 Time: 929 Sennosides/Docusate Sodium (Senna-Time S Tablet) 8.6 MG-50 MG TABLET 1 Tablet ORAL AT BEDTIME Qty = 30 No Refills Instructions: Please take to maintain 2 soft bowel movements a day Comments: Last Taken: 02/27/17 Time: 2129 Copies To: CURRY STANLEY,DAVID Coronel; ALIYA STANLEY,KORIN Hernandez; RICHARD STANLEY,SYLVIA Lopez; ALICIA STANLEY, GERMAN Ochoa; KAJAL STANLEY,AIDEN; ETHAN STANLEY,AUREA Feldman; KAPIL STANLEY,ORLIN; ROBERTO STANLEY, RENATA Azar MD Review Statement Documenting Attending: DEXTER STANLEY,BOB
[2017-02-18 14:24] VITALS: BP 132/60
[2017-02-18] MEDS ORDERED: ROZEREM8 M1 PO (18:27)
--- NOTE | 2017-02-18 18:41 | Patient Discharge Instructions ---
Discharge Instructions General Discharge Information You were seen/treated for: Perianal fistula, GI bleed You had these procedures: Fecal disimpaction Incision and drainage of perianal abscesses and fistulae with seton drains. Flexible sigmoidoscopy with BiCAP cautery, epi injection, & clip placement. Watch for these problems: Recurrence of rectal bleed Dizziness, blurry vision, palpitations Special Instructions: Please follow up with your PCP within one week after discharge. Please follow up with your colorectal surgeon at the next scheduled appointment. Please follow up with your dental equipment repairer at the next scheduled appointment. Diet Continue normal diet: Yes Activity Full Activity/No Limits: Yes Acute Coronary Syndrome Inclusion Criteria At DC or during hospital stay patient has or had the following: ACS DIAGNOSIS No Discharge Core Measures Meds if any: Prescribed or Continued at Discharge Meds if any: NOT Prescribed or Continued at Discharge Congestive Heart Failure Inclusion Criteria At DC or during hospital stay patient has or had the following: CHF DIAGNOSIS No Discharge Core Measures Meds if any: Prescribed or Continued at Discharge Meds if any: NOT Prescribed or Continued at Discharge Cerebrovascular accident Inclusion Criteria At DC or during hospital stay patient has or had the following: CVA/TIA Diagnosis No Discharge Core Measures Meds if any: Prescribed or Continued at Discharge Meds if any: NOT Prescribed or Continued at Discharge Venous thromboembolism Inclusion Criteria VTE Diagnosis No VTE Type NONE VTE Confirmed by (Test) NONE Discharge Core Measures - Per Current guidelines, there needs to be overlap - treatment for the first 5 days of Warfarin therapy. - If discharged on Warfarin prior to 5 days of - overlap therapy, the patient will need to be - assessed for post discharge needs including - *Post discharge parental anticoagulation - *Warfarin and/or parental anticoagulation education - *Follow up date to check INR post discharge At least 5 days overlap therapy as Inpatient No Meds if any: Prescribed or Continued at Discharge Note: Overlap Therapy is Warfarin and Anticoagulant Meds if any: NOT Prescribed or Continued at Discharge
[2017-02-18] MEDS ORDERED: MIRALAX119 GM PO (18:45)
[2017-02-18] MEDS ORDERED: DOCUSATE SODIU100 M3 PO (18:45)
[2017-02-18] MEDS ORDERED: SENNA-TIME S T1 EACH PO (18:45)
[2017-02-18 19:09] LABS: ABSOLUTE BASOPHIL COUNT 0.1 /CUMM (0.0-0.2); ABSOLUTE EOSINOPHIL COUNT 0.3 /CUMM (0.0-0.7); ABSOLUTE GRANULOCYTE CT 6.7 /CUMM (1.4-6.5); ABSOLUTE LYMPH COUNT 1.8 /CUMM (1.2-3.4); ABSOLUTE MONOCYTE COUNT 0.9 /CUMM (0.10-0.60); BASOPHIL % 0.6 % (0.0-2.0); EOSINOPHIL % 3.3 % (0-5); GRANULOCYTE % 68.5 % (42.2-75.2); HEMATOCRIT 25.3 % (42-52); MEAN CORPUSCULAR HGB 27.9 PG (27.0-31.0); MEAN CORPUSCULAR HGB CONC 32.4 G/DL (33.0-37.0); MEAN CORPUSCULAR VOLUME 85.9 FL (80.0-94.0); MEAN PLATELET VOLUME 7.3 FL (7.4-10.4); PLATELET COUNT 385 /CUMM (130-400); RBC DISTRIBUTION WIDTH 17.9 % (11.5-14.5); RED BLOOD CELL CT 2.95 /CUMM (4.70-6.10); WHITE BLOOD CELL COUNT 9.9 /CUMM (4.8-10.8)
[2017-02-18 22:53] VITALS: BP 112/60
[2017-02-19 06:42] VITALS: BP 120/60
--- NOTE | 2017-02-19 07:45 | PN- Housestaff ---
KIKA STANLEY,[facility] 02/19/17 0745: Subjective Follow-up For: Acute blood loss anemia I&D of Perianal fistula/abscess (02/10/2017) Flex sigmoidoscopy with BiCAP cautery, epinephrine injection and clip placement (02/14/2017) Right knee swelling Subjective: I have personally seen and examined the patient in morning. He was asking for a bed maldonado, Said he had to go to the bathrrom right now for a bowel movement. Denies any pain in his knee, fever, chills, SOB and chest pain. Review of Systems Constitutional: Denies: no symptoms. EENTM: Denies: no symptoms. Cardiovascular: Denies: no symptoms. Respiratory: Denies: no symptoms. Gastrointestinal: Denies: no symptoms. Genitourinary: Denies: no symptoms. Musculoskeletal: Denies: no symptoms. Skin: Denies: no symptoms. Objective Last 24 Hrs of Vital Signs/I&O Vital Signs Date Time Temp Pulse Resp B/P B/P Pulse O2 O2 Flow FiO2 Mean Ox Delivery Rate 02/19 0642 99.1 73 20 120/60 96 Room Air 02/18 2253 99.4 70 20 112/60 96 Room Air Intake & Output 02/19 1600 02/19 0800 02/19 0000 Intake Total 360 360 Output Total 600 300 Balance -240 60 Intake, Oral 360 360 Output, Urine 600 300 Physical Exam General Appearance: Alert, Oriented X3, Cooperative Other Physical Findings: skin warm to touch, diaphoretic HEENT Mucous Membr. moist/pink Cardiovascular Regular Rate, Normal S1, Normal S2, tachycardia Lungs Normal Air Movement, diminished breath sounds in the basilar regions bilaterally Abdomen Normal Bowel Sounds, Soft, no tenderness Extremities No Edema, Normal Pulses, tremors in hands Vascular Pulses Symmetrical Current Medications: Current Medications Sig/Amy Start time Last Medication Dose Route Stop Time Status Admin Acetaminophen 650 MG Q6P PRN 02/09 1630 AC 02/15 PO 1053 Acetaminophen 1,000 MG Q6P PRN 02/09 1630 AC 02/15 IV 1923 Docusate Sodium 100 MG BID 02/12 2200 AC 02/18 PO 2121 Polyethylene Glycol 17 GM DAILY 02/10 0045 AC 02/18 PO 1016 Ramelteon 8 MG AT BEDTIME 02/18 2200 AC 02/18 PO 212 Senna 187 MG AT BEDTIME 02/10 0045 AC 02/18 PO 2120 Sodium Bicarbonate 325 MG 4 TIMES/DAY 02/09 1800 AC 02/18 PO 2123 Sodium Chloride 1,000 ML BOLUS ONE 02/19 1045 DC 02/19 IV 02/19 1144 1048 Sodium Chloride 1,000 ML BOLUS ONE 02/19 0930 DC 02/19 IV 02/19 1029 0930 Sodium Phosphate 1 UNIT .[TWICE] 02/14 1530 AC 02/14 KS 1530 Last 24 Hrs of Lab/Matt Results Last 24 Hrs of Labs/Mics: Laboratory Tests 02/19/17 1240: CBC w Diff NO MAN DIFF REQ, RBC 2.79 L, MCV 86.1, MCH 28.3, RDW 17.4 H, MPV 7.3 L, Gran % 77.2 H, Lymphocytes % 13.7 L, Monocytes % 6.3, Eosinophils % 2.3, Basophils % 0.5, Absolute Granulocytes 7.7 H, Absolute Lymphocytes 1.4, Absolute Monocytes 0.6, Absolute Eosinophils 0.2, Absolute Basophils 0, PUBS MCHC 32.9 L 02/19/17 0930: Anion Gap 8, Estimated GFR 19 L, BUN/Creatinine Ratio 12.5, PT 13.0 H, INR 1.24 H, CBC w Diff NO MAN DIFF REQ, RBC 2.87 L, MCV 83.7, MCH 27.8, RDW 17.7 H, MPV 7.0 L, Gran % 66.9, Lymphocytes % 20.9, Monocytes % 8.1, Eosinophils % 3.2, Basophils % 0.9, Absolute Granulocytes 5.8, Absolute Lymphocytes 1.8, Absolute Monocytes 0.7 H, Absolute Eosinophils 0.3, Absolute Basophils 0.1, PUBS MCHC 33.2 02/18/17 1815: CBC w Diff NO MAN DIFF REQ, RBC 2.95 L, MCV 85.9, MCH 27.9, RDW 17.9 H, MPV 7.3 L, Gran % 68.5, Lymphocytes % 18.5 L, Monocytes % 9.1, Eosinophils % 3.3, Basophils % 0.6, Absolute Granulocytes 6.7 H, Absolute Lymphocytes 1.8, Absolute Monocytes 0.9 H, Absolute Eosinophils 0.3, Absolute Basophils 0.1, PUBS MCHC 32.4 L Microbiology 02/19 947 UPPER RESP: Surveillance Culture - RECD 02/19 947 GI: Surveillance Culture - RECD Assessment/Plan Assessment: 71-year-old gentleman with a PMH of [id number] tobacco use, hypertension, hyperlipidemia, chronic kidney disease, chronic anemia, stage II diastolic heart failure (echocardiogram in 2010) who presented to [place] with an extended period of perirectal and rectal discomfort, occasional bloody stool and spotting. CT imaging on admission showed a large amount of stool in the rectum with distention up to 6 cm in transverse diameter suggesting fecal impaction. Mild inflammatory changes posterior to cecum. The patient was found to have a drop in H&H and taken to the operating room on hospital day #1 where he underwent an I&D of the perianal fistula and abscesses on 02/10/2017. Intraoperative acute blood loss anemia requiring 2 units of transfusion and postprocedure stay in the ICU. On hospital day #5 the patient passed multiple large clots with resultant hypotension and again transferred to the ICU where he did receive 2 more units of transfusion and underwent a flexible sigmoidoscopy with BiCAP cautery, epinephrine injection and clip placement on 02/14/2017. Problem list: 1. I&D of perianal fistula/abscess (02/10/2017) 2. Acute blood loss anemia 3. Flex sigmoidoscopy with BiCAP cautery, epinephrine injection and clip placement (02/14/2017) 4. Left wrist pain 5. Right knee swelling 6. Leukocytosis 7. Chronic kidney disease Plan: 1) S/P perirectal fistula repair * Patient had another episode of bleeding per rectum in the morning and was transferred to ICU. Surgery and GI condulted, awaiting recommendations. 2) Acute on Chronic blood loss Anemia * H&H remained stable thus far status post 6 unit transfusions during his hospital course. 3. Left wrist pain/right knee pain: * On presentation the patient complained of pain in his left wrist. Follow-up x -ray did show degenerative changes of the base of the thumb * Experiencing complaints of right knee pain that was acute in nature with no preceding trauma. A follow-up x-ray showed tricompartmental osteoarthritis with degenerative changes most prominent severe lateral compartment. No fracture * Uric acid level came back elevated at 14.2 * Orthopedic recommendations at this time: Icing 3-4 times a day for 15-20 minutes, anti-inflammatory for a few weeks or a Medrol Dosepak. No plan at this time for any interventional treatment 4.Chronic smoker * quit 2 years ago: Qualifies for low-dose CT for lung cancer screening. Proceed with portable chest x-ray for now, CT as an outpatient. 5. Weakness: * Decondition in the setting of chronic disease and acute illness * Physical therapy to work with patient and provide recommendations for discharge disposition Holidng Lasix and anti-hypertensives. Full code. Mechanical-given anemia and possibility of blood loss. Full liquid diet Rozerem for sleep Problem List: 1. Cellulitis of rectal area 2. Fecal impaction 3. Perianal fistula 4. Acute blood loss anemia 5. Right anterior knee pain 6. GI bleed Pain Ratin Pain Location: Right Knee Pain Goal: Pain 4 or less Pain Plan: Pain Pathway Tomorrow's Labs & Rationales: CBC(ABLA) BOB RENTERIA MD 02/19/17 1250: Attending MD Review Statement Attending Statement Attending MD Statement: examined this patient, discuss w/resident/PA/DIAL EQUIPMENT ENGINEER, agreed w/resident/PA/DIAL EQUIPMENT ENGINEER, reviewed EMR data (avail) Attending Assessment/Plan: 71M PMH hypertension, hyperlipidemia, chronic kidney disease stage 4 admitted with fecal impaction and perianal fistulae. Went to OR on 02/10/17 for fecal disimpaction and I&D of perianal fistulae. Course complicated by lower GI bleeding, initially transferred to ICU for monitoring, hemodynamically stable and transferred down to general medicine floor over the weekend. On 02/15/17 patient had an episode of acute lower GI bleed with large clots and hypotension requiring emergent IV fluids, pRBC, and flex-sig with rectal vein ablation and ensuing stabilization, monitored in the ICU for 24 hours and transferred back to general medicine. This morning patient had a large bloody bowel movement with several large clots. His BP decreased to 60/palp before improving to 95/60. He appears pale and ill , but is awake and alert. He was transferred to ICU, GI and colorectal surgery notified, transfused 2 units pRBC. 1. Perianal fistulae 2. Fecal impaction 3. Lower GI bleed 4. CKD stage 4 Plan - Transfer to ICU - Transfuse 2 units pRBC - Follow colorectal surgery and GI recommendations - Monitor CBC - Continue home medications
[2017-02-19 09:45] VITALS: BP 96/54
[2017-02-19 09:46] LABS: ABSOLUTE BASOPHIL COUNT 0.1 /CUMM (0.0-0.2); ABSOLUTE EOSINOPHIL COUNT 0.3 /CUMM (0.0-0.7); ABSOLUTE GRANULOCYTE CT 5.8 /CUMM (1.4-6.5); ABSOLUTE LYMPH COUNT 1.8 /CUMM (1.2-3.4); ABSOLUTE MONOCYTE COUNT 0.7 /CUMM (0.10-0.60); BASOPHIL % 0.9 % (0.0-2.0); EOSINOPHIL % 3.2 % (0-5); GRANULOCYTE % 66.9 % (42.2-75.2); MEAN CORPUSCULAR HGB 27.8 PG (27.0-31.0); MEAN CORPUSCULAR HGB CONC 33.2 G/DL (33.0-37.0); MEAN CORPUSCULAR VOLUME 83.7 FL (80.0-94.0); PLATELET COUNT 393 /CUMM (130-400); RBC DISTRIBUTION WIDTH 17.7 % (11.5-14.5); RED BLOOD CELL CT 2.87 /CUMM (4.70-6.10); WHITE BLOOD CELL COUNT 8.6 /CUMM (4.8-10.8)
--- NOTE | 2017-02-19 09:57 | NUR ---
0930 - RAPID RESPONSE PATIENT HAD A LARGE BLOODY BOWEL MOVEMENT WITH MANY CLOTS. MD ZABALA AWARE AND AT BEDSIDE. VITALS BP 120/76 HR 86 RR 18 SPO2 96% T 97.0. PATIENT WAS ALERT AND ORIENTEDX2, YET STATED HE "FELT FUNNY." ANOTHER BP WAS TAKEN AND FOUND TO BE 80/48. RAPID RESPONSE CALLED. NEXT BP WAS SYSTOLIC 60/- BLOOD SUGAR 126 SPO2 97 RM AIR. PATIENT TRANSFERRED TO RM 105 IN THE ICU.
--- NOTE | 2017-02-19 10:45 | NUR ---
Physical Therapy: Attempted to see pt this morning for treatment. Pt recently transfered to ICU after Rapid Response due to severe hypotensison. Will place patient on hold from skilled PT at this time. Please reconsult when pt is medically stable and appropriate. Thank you.
--- NOTE | 2017-02-19 11:03 | Event Note ---
Event Note Event Note: Mr. Callejas was seen and examined at the bedside. He was transferred back to the ICU for another GI bleed with hypotension to the 60s systolically. His H/H from 930 this morning was 8.0/24. He lost about a unit of bright red blood per rectum. He is s/p cauterization and clipping of a vessel 1-2 cm proximately to the pectinate line on 02/14/17. The patients family (son and daughter in law were notified), as well as GI and surgery. I was able to speak with Dr. Wilson who stated that she would take the patient to the OR for an examination underanesthesia with oversewing and if need be an exploratory lap with possible bowel resection. Patients vitals are currently stable with systolic BP in the high 90s, with 1 bolus of NS running wide open and another one being hung. Repeat CBC pending, type and screen sent. INR WNL this am. Pt NPO. Possible causes of bleed include the clipped vessel - ?clips fell off, or bleeding from another location, although no active bleeds were noted on sigmoidoscopy on 02/14/17. Patient has not been on anticoagulation.
--- NOTE | 2017-02-19 13:32 | PN- CRCU ---
QUINN STANLEY,IMANI 02/19/17 1332: Subjective HPI/Critical Care Issues: I saw the patient personally today at bedside. Pt is stable, bp systolic 90, NS on flow. pt is going to OT for exploratory surgery. Objective Current Medications: Current Medications Sig/Amy Start time Last Medication Dose Route Stop Time Status Admin Acetaminophen 650 MG Q6P PRN 02/09 1630 AC 02/15 PO 1053 Acetaminophen 1,000 MG Q6P PRN 02/09 1630 AC 02/15 IV 1923 Docusate Sodium 100 MG BID 02/12 2200 AC 02/18 PO 2121 Patient Medication 1 ED .STK-MED ONE 02/18 1407 DC Teaching ED 02/18 1408 Polyethylene Glycol 17 GM DAILY 02/10 0045 AC 02/18 PO 1016 Ramelteon 8 MG AT BEDTIME 02/18 2200 AC 02/18 PO 2121 Senna 187 MG AT BEDTIME 02/10 0045 AC 02/18 PO 2120 Sodium Bicarbonate 325 MG 4 TIMES/DAY 02/09 1800 AC 02/18 PO 2123 Sodium Chloride 1,000 ML BOLUS ONE 02/19 1045 DC 02/19 IV 02/19 1144 1048 Sodium Chloride 1,000 ML BOLUS ONE 02/19 0930 DC 02/19 IV 02/19 1029 0930 Sodium Phosphate 1 UNIT .[TWICE] 02/14 1530 AC 02/14 [place] 1530 Vital Signs & I&O Last 24 Hrs of Vitals and I&O: Vital Signs Date Time Temp Pulse Resp B/P B/P Pulse O2 O2 Flow FiO2 Mean Ox Delivery Rate 02/19 0642 99.1 73 20 120/60 96 Room Air 02/18 2253 99.4 70 20 112/60 96 Room Air 02/18 1424 97.7 80 20 132/60 97 Room Air Intake & Output 02/19 1600 02/19 0800 02/19 0000 Intake Total 360 360 Output Total 600 300 Balance -240 60 Intake, Oral 360 360 Output, Urine 600 300 Exam General Appearance: no apparent distress, awake, anxious Head: normal appearance Neck: normal inspection, supple, full range of motion Respiratory: normal breath sounds, chest non-tender, no respiratory distress, quiet respiration, lungs clear Cardiovascular: regular rate/rhythm Abdomen: normal bowel sounds Extremities: normal inspection Neurologic/Psychiatric: alert, oriented x 3 Skin: intact Results Last 24 Hrs of Lab Results: Laboratory Tests 02/19/17 1240: CBC w Diff Pending, WBC Pending, RBC Pending, Hgb Pending, Hct Pending, MCV Pending, MCH Pending, RDW Pending, Plt Count Pending, MPV Pending, PUBS MCHC Pending 02/19/17 0930: Anion Gap 8, Estimated GFR 19 L, BUN/Creatinine Ratio 12.5, PT 13.0 H, INR 1.24 H, CBC w Diff NO MAN DIFF REQ, RBC 2.87 L, MCV 83.7, MCH 27.8, RDW 17.7 H, MPV 7.0 L, Gran % 66.9, Lymphocytes % 20.9, Monocytes % 8.1, Eosinophils % 3.2, Basophils % 0.9, Absolute Granulocytes 5.8, Absolute Lymphocytes 1.8, Absolute Monocytes 0.7 H, Absolute Eosinophils 0.3, Absolute Basophils 0.1, PUBS MCHC 33.2 02/18/17 1815: CBC w Diff NO MAN DIFF REQ, RBC 2.95 L, MCV 85.9, MCH 27.9, RDW 17.9 H, MPV 7.3 L, Gran % 68.5, Lymphocytes % 18.5 L, Monocytes % 9.1, Eosinophils % 3.3, Basophils % 0.6, Absolute Granulocytes 6.7 H, Absolute Lymphocytes 1.8, Absolute Monocytes 0.9 H, Absolute Eosinophils 0.3, Absolute Basophils 0.1, PUBS MCHC 32.4 L Impression/Plan Impression/Plan Impression/Plan: 71-year-old gentleman status post perianal fistula repair, fecal disimpaction, I & D of abscess, status post flexible sigmoidoscopy with BiCPAP cautery, epi injection, clip placement. Patient has got 6 PRBC since admission. Hemoglobin today is 8.6. This morning patient had a large bloody bowel movement with several large clots. His BP decreased to 60/palp before improving to 95/60. He appears pale and ill, but is awake and alert. He was transferred to ICU, GI and colorectal surgery notified, transfused 2 units pRBC. Plan - Transfuse 2 units pRBC - Follow colorectal surgery and GI recommendations * colorectal surgery- for emrgency exploratory surgery. -cbc monitoring -w/f bleeding P/R Code Status: Full Code Problem List: 1. Acute blood loss anemia 2. Perianal fistula Assessment/Plan S/P PERIANAL FISTULA REPAIR. 3. Hypotension 4. Chronic renal disease 5. GI bleed BALDEMAR DICK MD 02/19/17 3989: Impression/Plan Impression/Plan Recommendations: Baldemar Ko M.D. have examined this patient, reviewed available EMR data, personally reviewed images, discussed with resident/PA/NETEZZA DEVELOPER, discussed management plan with housestaff and nursing staff, discussed managment plan all of healthcare providers, discussed management plan with patient and/or family, agreed with resident/PA/NETEZZA DEVELOPER. The past history and parts of the chart have been autopopulated. Surigical/GI input OR booked TTS 35 min
[2017-02-19 14:02] LABS: ABSOLUTE BASOPHIL COUNT 0 /CUMM (0.0-0.2); ABSOLUTE EOSINOPHIL COUNT 0.2 /CUMM (0.0-0.7); ABSOLUTE GRANULOCYTE CT 7.7 /CUMM (1.4-6.5); ABSOLUTE LYMPH COUNT 1.4 /CUMM (1.2-3.4); ABSOLUTE MONOCYTE COUNT 0.6 /CUMM (0.10-0.60); BASOPHIL % 0.5 % (0.0-2.0); EOSINOPHIL % 2.3 % (0-5); GRANULOCYTE % 77.2 % (42.2-75.2); MEAN CORPUSCULAR HGB 28.3 PG (27.0-31.0); MEAN CORPUSCULAR HGB CONC 32.9 G/DL (33.0-37.0); MEAN CORPUSCULAR VOLUME 86.1 FL (80.0-94.0); MEAN PLATELET VOLUME 7.3 FL (7.4-10.4); PLATELET COUNT 339 /CUMM (130-400); RBC DISTRIBUTION WIDTH 17.4 % (11.5-14.5); RED BLOOD CELL CT 2.79 /CUMM (4.70-6.10)
--- NOTE | 2017-02-19 15:04 | Operative Report ---
Operative/Inv Procedure Report Surgery Date: 02/19/17 Name of Procedure: 1. exam under anesthesia 2. oversawing of bleeding rectal ulcers Pre-Operative Diagnosis: 1. rectal bleeding 2. renal disease Post-Operative Diagnosis: same Estimated Blood Loss: less than 50ml Surgeon/Optical Brightener Maker Helper: BOB RENTERIA MD Anesthesia: general endotracheal tube Specimens: none Complications: none Condition: stable to recovery room Operative Indication: Patient is a 71-year-old man with stage IV renal disease who never had,. The patient presented to the hospital approximately 2 weeks ago with perianal disease some weight loss and intermittent rectal bleeding. Patient's hospital course included multiple transfusions with packed red blood cells for intermittent severe rectal bleeding. He also went to or for I and D's of perianal abscesses and seton placements. Patient had flexible sigmoidoscopy by GI last week and was found to have friable distal rectal with shallow bleeding ulcers and an exposed blood vessel. Patient was doing well until today when he had massive lower GI bleed. Based on endoscopy findings, the decision was made to proceed with exam under anesthesia and oversewing of bleeding ulcers and exposed blood vessel. All risks, benefits, and alternatives were explained to the patient in detail, and he expressed understanding and agreement with the same. Operative/Procedure Note Note: Patient was taken to the operating room on the stretcher. Bilateral lower extremity SCDs were placed on both legs. Gen. endotracheal anesthesia was established by the anesthesia team. The patient was placed on the operating table in the prone jackknife position. All appropriate pressure points were padded, and the patient was secured on the operating table. The timeout was carried out after the buttocks were taped apart and the perineum was prepped and draped in the standard surgical fashion. 20 mL of half percent Marcaine with epinephrine were used for the anal block. The anus scope was inserted. The patient had extremely friable distal rectal mucosa and the exposed blood vessel was visualized. It was not excessively bleeding. It was ligated with 2 [id number] 3-0 Vicryl sutures area of multiple shallow rectal ulcers were also oversewn with 3-0 Vicryl sutures andsuperficial occlusal fissures were cauterized area and the amount of bleeding visualized from the distal rectum at the time of surgery was not severe enough to result in the hemodynamic instability and a low-dose a few blood units. Also , the patient had melena stool proximal to the exposed rectal ulcers. Once the ulcers and exposed vessel were oversewn, and epinephrine-soaked Gelfoam was inserted within the anal canal. The dressings were applied. The sponge and instrument counts were correct in the end of the procedure. The patient remained hemodynamically stable throughout the procedure. He was wakened up and taken to recovery room in stable condition. Findings: Very friable distal rectum with multiple circumferential superficial oozing ulcers and an exposed nonbleeding blood vessel Discharge Disposition: Critical Care Unit Additional Comments: Based on the operative findings, there rectal friability and ulcers would not result in massive intermittent low GI blood loss. Recommend keeping patient NPO for now, serial H&H, CTA with GI bleed protocol, and consulted nephrology for possible platelet dysfunction. We'll continue to follow and monitor.
--- NOTE | 2017-02-19 15:33 | Cons- Nephrology ---
General Information and HPI Consulting Request Date of Consult: 02/20/17 Requested By: BOB RENTERIA MD Reason for Consult: CKD History of Present Illness: 71 yr old WM w mult med problems including HTN, ischemic cardiomyopathy, chronic met acidosis, & CKD admit 02/09/17 w perirectal pain & heme + stool. Found to have impaction w perirectal absccess requiring surgical I&D & antibiotics. Course complicated by recurrent lower GI bleed requiring mult transfusuion prbc & hypotension to 60s systolic 02/19 --> return to OR. Known severe, stage 4, CKD w baseline mid Cr 3s as outpt improved hi 2s earlier this hospitalization off outpt lisinopril before rising low 3s again w/o oliguria. No ACEI, ARB, IV contrast, NSAIDs since admission. Allergies/Medications Allergies: Coded Allergies: No Known Allergies (02/09/17) Home Med List: Aspirin (Ecotrin*) 81 MG TABLET.DR 1 TAB PO DAILY HEART/BLOOD (Reported) Calcitriol (Rocaltrol) 0.25 MCG CAPSULE 1 CAP PO DAILY SUPPLEMENT (Reported) Cholecalciferol (Vitamin D3) (Vitamin D3) 1,000 UNIT CAPSULE 1 CAP PO DAILY VITAMIN SUPPORT (Reported) Docusate Sodium 100 MG CAPSULE 1 TAB PO BID Constipation Please take to maintain 2 soft bowel movements a day Furosemide 40 MG TABLET 1 TAB PO Saturday DIURETIC (Reported) Lisinopril (Prinivil) 20 MG TABLET 1 TAB PO DAILY BP (Reported) Metoprolol Succinate 50 MG TAB.ER.24H 1.5 TAB PO DAILY BP (Reported) Polyethylene Glycol 3350 (Miralax) 17 GRAM/DOSE POWDER 1 PAC PO DAILY Constipation Please take to maintain 2 soft bowel movements a day Ramelteon (Rozerem) 8 MG TABLET 1 TAB PO AT BEDTIME PRN Insomnia Sennosides/Docusate Sodium (Senna-Time S Tablet) 8.6 MG-50 MG TABLET 1 TAB PO AT BEDTIME Contipation Please take to maintain 2 soft bowel movements a day Simvastatin (Simvastatin*) 20 MG TABLET 1 TAB PO QPM CHOLESTEROL (Reported) Sodium Bicarbonate 650 MG TABLET 2 TAB PO DAILY ANTACID (Reported) Current Medications: Current Medications Sig/Amy Start time Last Medication Dose Route Stop Time Status Admin Acetaminophen 650 MG Q6P PRN 02/09 1630 AC 02/15 PO 1053 Acetaminophen 1,000 MG Q6P PRN 02/09 1630 AC 02/15 IV 1923 Docusate Sodium 100 MG BID 02/12 2200 AC 02/18 PO 2121 Polyethylene Glycol 17 GM DAILY 02/10 0045 AC 02/18 PO 1016 Ramelteon 8 MG AT BEDTIME 02/18 2200 AC 02/18 PO 2121 Senna 187 MG AT BEDTIME 02/10 0045 AC 02/18 PO 2120 Sodium Bicarbonate 325 MG 4 TIMES/DAY 02/09 1800 AC 02/18 PO 2123 Sodium Chloride 1,000 ML BOLUS ONE 02/19 1045 DC 02/19 IV 02/19 1144 1048 Sodium Chloride 1,000 ML BOLUS ONE 02/19 0930 DC 02/19 IV 02/19 1029 0930 Sodium Phosphate 1 UNIT .[TWICE] 02/14 1530 AC 02/14 [place] 1530 Review of Systems Review of Systems Constitutional: Reports: no symptoms. EENTM: Reports: no symptoms. Cardiovascular: Reports: no symptoms. Respiratory: Reports: no symptoms. GI: Reports: bloody stool. Genitourinary: Reports: no symptoms. Musculoskeletal: Reports: no symptoms. Skin: Reports: no symptoms. Neurological/Psychological: Reports: no symptoms. Hematologic/Endocrine: Reports: bleeding. Immunologic/Allergic: Reports: no symptoms. 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 Home Services at Home: None Primary Language: Malay Smoking Status: Former Smoker ETOH Use: denies use Illicit Drug Use: denies illicit drug use Exam & Diagnostic Data Vital Signs and I&O Vital Signs Date Time Temp Pulse Resp B/P B/P Pulse O2 O2 Flow FiO2 Mean Ox Delivery Rate 02/19 0642 99.1 73 20 120/60 96 Room Air 02/18 2253 99.4 70 20 112/60 96 Room Air Intake & Output 02/190 02/17 0400 Intake Total 360 360 580 370 250 Output Total 600 300 380 104 4169 Balance -240 60 -320 -500 -1035 250 Intake, IV 10 10 Intake, Oral 360 360 580 360 240 Number 1 2 Bowel Movements Output, Urine 600 300 151 865 0023 Physical Exam General Appearance: well developed/nourished, no apparent distress, alert, awake Head: atraumatic, normal appearance Eyes: Bilateral: normal appearance. Ears, Nose, Throat: normal ENT inspection Neck: normal inspection, supple Respiratory: normal breath sounds, chest non-tender, no respiratory distress, quiet respiration, lungs clear Cardiovascular: regular rate/rhythm Gastrointestinal: soft, non-tender, no organomegaly Extremities: no edema Neurologic/Psych: no motor/sensory deficits, awake, alert, instructional technology specialist II-XII nml as tested Skin: intact, normal color Lymphatic: adenopathy, NO AXILLARY ADENOPATHY Results Pertinent Lab Results: Laboratory Tests 02/19 02/19 1240 0930 Chemistry Sodium (137 - 145 mmol/L) 137 Potassium (3.5 - 5.1 mmol/L) 4.8 Chloride (98 - 107 mmol/L) 104 Carbon Dioxide (22 - 30 mmol/L) 25 Anion Gap (5 - 16) 8 BUN (9 - 20 mg/dL) 40 H Creatinine (0.7 - 1.2 mg/dL) 3.2 H Estimated GFR (>60 ml/min) 19 L BUN/Creatinine Ratio (7 - 25 %) 12.5 Coagulation PT (9.4 - 12.5 SEC) 13.0 H INR (0.90 - 1.17) 1.24 H Hematology CBC w Diff NO MAN DIFF REQ NO MAN DIFF REQ WBC (4.8 - 10.8 /CUMM) 10.0 8.6 RBC (4.70 - 6.10 /CUMM) 2.79 L 2.87 L Hgb (14.0 - 18.0 G/DL) 7.9 L 8.0 L Hct (42 - 52 %) 24.0 L 24.0 L MCV (80.0 - 94.0 FL) 86.1 83.7 MCH (27.0 - 31.0 PG) 28.3 27.8 RDW (11.5 - 14.5 %) 17.4 H 17.7 H Plt Count (130 - 400 /CUMM) 339 393 MPV (7.4 - 10.4 FL) 7.3 L 7.0 L Gran % (42.2 - 75.2 %) 77.2 H 66.9 Lymphocytes % (20.5 - 51.1 %) 13.7 L 20.9 Monocytes % (1.7 - 9.3 %) 6.3 8.1 Eosinophils % (0 - 5 %) 2.3 3.2 Basophils % (0.0 - 2.0 %) 0.5 0.9 Absolute Granulocytes (1.4 - 6.5 /CUMM) 7.7 H 5.8 Absolute Lymphocytes (1.2 - 3.4 /CUMM) 1.4 1.8 Absolute Monocytes (0.10 - 0.60 /CUMM) 0.6 0.7 H Absolute Eosinophils (0.0 - 0.7 /CUMM) 0.2 0.3 Absolute Basophils (0.0 - 0.2 /CUMM) 0 0.1 PUBS MCHC (33.0 - 37.0 G/DL) 32.9 L 33.2 02/18 02/18 1815 1011 Hematology CBC w Diff NO MAN DIFF REQ NO MAN DIFF REQ WBC (4.8 - 10.8 /CUMM) 9.9 8.3 RBC (4.70 - 6.10 /CUMM) 2.95 L 3.06 L Hgb (14.0 - 18.0 G/DL) 8.2 L 8.6 L Hct (42 - 52 %) 25.3 L 25.9 L MCV (80.0 - 94.0 FL) 85.9 84.7 MCH (27.0 - 31.0 PG) 27.9 28.2 RDW (11.5 - 14.5 %) 17.9 H 17.9 H Plt Count (130 - 400 /CUMM) 385 352 MPV (7.4 - 10.4 FL) 7.3 L 7.3 L Gran % (42.2 - 75.2 %) 68.5 69.0 Lymphocytes % (20.5 - 51.1 %) 18.5 L 18.5 L Monocytes % (1.7 - 9.3 %) 9.1 8.2 Eosinophils % (0 - 5 %) 3.3 3.5 Basophils % (0.0 - 2.0 %) 0.6 0.8 Absolute Granulocytes (1.4 - 6.5 /CUMM) 6.7 H 5.7 Absolute Lymphocytes (1.2 - 3.4 /CUMM) 1.8 1.5 Absolute Monocytes (0.10 - 0.60 /CUMM) 0.9 H 0.7 H Absolute Eosinophils (0.0 - 0.7 /CUMM) 0.3 0.3 Absolute Basophils (0.0 - 0.2 /CUMM) 0.1 0.1 PUBS MCHC (33.0 - 37.0 G/DL) 32.4 L 33.3 02/17 07/ 0620 1600 Hematology CBC w Diff NO MAN DIFF REQ NO MAN DIFF REQ WBC (4.8 - 10.8 /CUMM) 9.0 10.1 RBC (4.70 - 6.10 /CUMM) 2.98 L 3.18 L Hgb (14.0 - 18.0 G/DL) 8.4 L 8.7 L Hct (42 - 52 %) 25.4 L 27.1 L MCV (80.0 - 94.0 FL) 85.3 85.1 MCH (27.0 - 31.0 PG) 28.2 27.3 RDW (11.5 - 14.5 %) 17.7 H 17.8 H Plt Count (130 - 400 /CUMM) 336 332 MPV (7.4 - 10.4 FL) 7.4 7.4 Gran % (42.2 - 75.2 %) 67.7 71.4 Lymphocytes % (20.5 - 51.1 %) 18.8 L 14.4 L Monocytes % (1.7 - 9.3 %) 9.3 10.3 H Eosinophils % (0 - 5 %) 3.7 3.4 Basophils % (0.0 - 2.0 %) 0.5 0.5 Absolute Granulocytes (1.4 - 6.5 /CUMM) 6.1 7.2 H Absolute Lymphocytes (1.2 - 3.4 /CUMM) 1.7 1.5 Absolute Monocytes (0.10 - 0.60 /CUMM) 0.8 H 1.0 H Absolute Eosinophils (0.0 - 0.7 /CUMM) 0.3 0.3 Absolute Basophils (0.0 - 0.2 /CUMM) 0 0.1 PUBS MCHC (33.0 - 37.0 G/DL) 33.0 32.1 L Imaging/Other Studies: SERVICE DATE: 02/09/17 EXAM TYPE: RAD - XRY-PORTABLE CHEST XRAY EXAMINATION: XR PORTABLE CHEST CLINICAL INFORMATION: Smoking, rule out malignancy COMPARISON: 04/03/2016 TECHNIQUE: Portable frontal view of the chest was obtained. FINDINGS: I would recommend CT chest to exclude a lesion. This is a portable study film. There is right basilar markings which may well be chronic. Small superimposed infiltrate cannot be excluded. Left lung is grossly clear. There is no effusion. No failure. Prominence of the central mediastinum may be due to portable study. IMPRESSION: No convincing evidence for an acute process. To exclude lung malignancy in a patient with high risk I would recommend CT of the chest. This may be done low-dose noncontrast SERVICE DATE: 02/09/17 EXAM TYPE: CAT - CT ABD & PELVIS W/O IV CONTRAS EXAMINATION: CT ABDOMEN AND PELVIS WITHOUT CONTRAST CLINICAL INFORMATION: Rectal abscess, cellulitis of rectum COMPARISON: 06/13/2011 CT scan TECHNIQUE: Multidetector volumetric imaging was performed from the superior aspect of the liver through the pubic symphysis. Sagittal and coronal reformatted images were obtained on the technologist's workstation. DLP: 373.58 mGy-cm FINDINGS: LUNG BASES: Limited images of lower thorax demonstrates linear elongated opacities in the right lower lobe with extension toward the pleural surface, similar to 2011 CT scan and can represent scar versus chronic atelectasis. The visualized lung bases are otherwise clear. The noncontrast images of the abdomen and pelvis demonstrate: LIVER, GALLBLADDER, AND BILIARY TREE: The liver is normal in size, shape, and attenuation. No biliary ductal dilatation is present. The gallbladder is unremarkable with no evidence of radiopaque gallstones, gallbladder wall thickening, or obvious pericholecystic inflammatory changes. PANCREAS: Unremarkable. SPLEEN: Unremarkable. ADRENAL GLANDS: Unremarkable. KIDNEYS AND URETERS: The kidneys are normal in size, shape. No hydronephrosis, hydroureter seen. No perinephric stranding. There is a 2.0 cm stone in the lower pole calyces of the right kidney without obstruction. It is unchanged. There is a 2.3 cm exophytic left renal cortical fluid density lesion, likely a cyst. It is increased in size. There is a 2.8 cm left renal cortical cyst in the mid part of the left kidney. It is increased in size. There is a 2.3 cm slightly heterogeneous hypoechoic dense lesion in the lower pole cortex of the left kidney. It is unchanged in size. It can represent a renal cyst as well. No left renal stone. BLADDER: Unremarkable. GASTROINTESTINAL TRACT: There is large amount of stool in the rectum with mild distention of the rectum, suggestive of fecal impaction. There is mild soft tissue stranding behind the rectum, in the presacral region, better seen on sagittal images 62. The rectal wall thickness is within normal limits. No definite perirectal abscess is seen. No extraluminal air. Mild to moderate diverticular disease of the sigmoid colon noted. No CT evidence of acute diverticulitis. The appendix is visualized and without evidence of acute appendicitis. The small bowel loops are not dilated. ABDOMINAL WALL: No significant hernia is appreciated. LYMPH NODES: Normal. VASCULAR: There is mild aneurysmal dilatation of the infrarenal abdominal aorta with maximal transverse diameter of 3.2 cm. It has increased from 3.1 cm in June 2011. Advanced atherosclerotic calcifications of the abdominal aorta and iliac arteries seen. PELVIC VISCERA: Unremarkable. OSSEOUS STRUCTURES: Degenerative changes of the lower lumbar spine predominantly involving the facet joints at L4-L5 and L5-S1 noted. IMPRESSION: The study is somehow limited for evaluation of proctitis/abscess due to lack of intravenous contrast. Presence of large amount of stool in the rectum with distention of the rectum up to 6 cm in transverse diameter suggest fecal impaction. There are mild inflammatory changes posterior to the rectum, in the presacral region. No perirectal abscess is seen. The rectal wall thickness is within normal limits. Right renal stone. Left renal cortical cysts. Atherosclerosis and mild aneurysmal dilatation of infrarenal abdominal aorta. Assessment/Plan Assessment/Recommendations Assessment: 1. ROSE: improved prob prerenal due to hypotension & volume contraction 2. CKD: severe, stage 4, due to presumed HTN nephrosclerosis. 3. Met Acidosis: controlled w po bicarb Recommendations: 1. maintenance IV NS 50 ml/hr 2. no IV contrast 3. continue to hold on ACEI or ARB till clear stable 4. no Fleets phosphosoda prep - Golytely OK
[2017-02-19 15:54] LABS: ABSOLUTE EOSINOPHIL COUNT 0.2 /CUMM (0.0-0.7); ABSOLUTE LYMPH COUNT 1.3 /CUMM (1.2-3.4); ABSOLUTE MONOCYTE COUNT 0.6 /CUMM (0.10-0.60); RED BLOOD CELL CT 2.63 /CUMM (4.70-6.10); WHITE BLOOD CELL COUNT 7.7 /CUMM (4.8-10.8)
[2017-02-19 16:00] VITALS: BP 120/86
[2017-02-19 16:04] LABS: ABSOLUTE BASOPHIL COUNT 0.1 /CUMM (0.0-0.2); ABSOLUTE GRANULOCYTE CT 5.5 /CUMM (1.4-6.5); BASOPHIL % 0.9 % (0.0-2.0); EOSINOPHIL % 2.2 % (0-5); GRANULOCYTE % 72.3 % (42.2-75.2); HEMATOCRIT 22.6 % (42-52); MEAN CORPUSCULAR HGB 27.9 PG (27.0-31.0); MEAN CORPUSCULAR HGB CONC 32.5 G/DL (33.0-37.0); MEAN CORPUSCULAR VOLUME 86.1 FL (80.0-94.0); MEAN PLATELET VOLUME 7.1 FL (7.4-10.4); PLATELET COUNT 289 /CUMM (130-400); RBC DISTRIBUTION WIDTH 16.8 % (11.5-14.5)
--- NOTE | 2017-02-19 19:44 | NUCLEAR MEDICINE REPORT ---
EXAMINATION: NM TAGGED RBC SCAN CLINICAL INFORMATION: GI bleed. Rectal bleed. COMPARISON: CT 02/09/2017 TECHNIQUE: Autologous blood cells were labeled using a modified in vivo method with 25 mCi technetium 99m pyrophosphate.. After initial rapid sequence perfusion images, 1 minute scintigrams of the abdomen and pelvis were obtained for 60 minutes. An additional 18 minutes of images were acquired with a slightly more inferior [id number]. A final inferior static image was obtained. FINDINGS: Initial perfusion images demonstrate expected radiotracer within the aorta and bilateral iliac arteries. Subsequently, there is accumulation of radiotracer in the low midline pelvis with an elongated appearance. The the location, orientation, and appearance is most consistent with radiotracer extravasation into the rectum, rather than the urinary bladder. No renal or ureteral radiotracer seen. There is subsequent redistribution of the radiotracer from the rectum into the sigmoid colon as well as possible skin contamination. IMPRESSION: Findings consistent with active radiotracer extravasation into the rectum, consistent with the history of rectal bleeding.
--- NOTE | 2017-02-19 20:52 | NUR ---
1999 PT RETURNED FROM TAGGED STUDIES. TRANSFERRED SASHA ONTO BED USING THE BOARD W/3 STAFF. DENIES ANY PAIN DURING THE PROCEDURE. SR ON THE MONITOR HR 70-80'S. SBP 120/AUTO & 150/MANUAL. HNV SINCE 1PM EVEN IN THE OR OR TAGGED STUDDIES. WILL USED THE BLADDER SCAN SHORTLY. NPO FOR NOW PLANS FOR COLONSCOPY IN THE AM. INFORMED THE PT THAT HE'LL BE DRINKING GOLYTELY THROUGHOUT THE HS. PT HAD CONCERNS RE. THE RECTAL CORDS & AFRAID TO OPEN IT UP. INFORMED DR. WRIGHT W/PT'S CONCERNS. MD WILL INFORM SX PA & GI RE. THE RECTAL CORDS. CONT TO MONITOR.
--- NOTE | 2017-02-19 22:38 | NUR ---
S/B DR. ANIKA VASQUEZ & EXPLAINED TO PT THAT IT'S OK TO GIVE THE GOLYTLEY & IT WILL BE SAFE W/THE SX/RECTAL CORDS ATTACHED. ALSO INFORMED PT THAT HE'LL BE TRANSFUSED PRBC PEDRO HGB/HCT 7.3/22.6. PT NOT HAPPY WITH ALL THE EVENTS THAT HAPPENED TO HIM THE WHOLE DAY TO NIGHT. REASSURANCE GIVEN.
[2017-02-20] VITALS: BP 140/74
[2017-02-20 04:36] LABS: ABSOLUTE BASOPHIL COUNT 0.1 /CUMM (0.0-0.2); ABSOLUTE EOSINOPHIL COUNT 0.2 /CUMM (0.0-0.7); ABSOLUTE GRANULOCYTE CT 8.4 /CUMM (1.4-6.5); ABSOLUTE LYMPH COUNT 1.7 /CUMM (1.2-3.4); ABSOLUTE MONOCYTE COUNT 0.6 /CUMM (0.10-0.60); BASOPHIL % 0.9 % (0.0-2.0); EOSINOPHIL % 2.1 % (0-5); GRANULOCYTE % 76.4 % (42.2-75.2); HEMATOCRIT 25.6 % (42-52); MEAN CORPUSCULAR HGB 28.8 PG (27.0-31.0); MEAN CORPUSCULAR HGB CONC 33.3 G/DL (33.0-37.0); MEAN CORPUSCULAR VOLUME 86.5 FL (80.0-94.0); MEAN PLATELET VOLUME 7.5 FL (7.4-10.4); PLATELET COUNT 322 /CUMM (130-400); RBC DISTRIBUTION WIDTH 16.5 % (11.5-14.5); RED BLOOD CELL CT 2.96 /CUMM (4.70-6.10)
--- NOTE | 2017-02-20 07:22 | PN- CRCU ---
QUINN STANLEY,IMANI 02/20/17 0722: Subjective HPI/Critical Care Issues: I saw the pt today at bedside. No over night events. Pt is comfortable at rest, conscious, oriented not dypneic, tachypneic. Pt had one bowel movement today with no bleeding. Planned for colonoscopy tomorrow. Objective Current Medications: Current Medications Sig/Amy Start time Last Medication Dose Route Stop Time Status Admin Acetaminophen 650 MG Q6P PRN 02/09 1630 AC 02/15 PO 1053 Acetaminophen 1,000 MG Q6P PRN 02/09 1630 AC 02/15 IV 1923 Docusate Sodium 100 MG BID 02/12 2200 AC 02/18 PO 2121 Fentanyl Citrate 250 MCG .STK-MED ONE 02/19 1301 DC IM 02/19 1302 Hydromorphone HCl 2 MG .STK-MED ONE 02/19 1554 DC IM 02/19 1555 Hydromorphone HCl 2 MG .STK-MED ONE 02/19 1450 DC IM 02/19 1451 Hydromorphone HCl 2 MG .STK-MED ONE 02/19 1300 DC IM 02/19 1301 Magnesium Citrate 300 ML ONE ONE 02/20 0815 DC PO 02/20 0816 Midazolam HCl 2 MG .STK-MED ONE 02/19 1301 DC IM 02/19 1302 Polyethylene Glycol 1 GAL ONCE ONE 02/19 1800 DC 02/19 PO 02/19 1801 2203 Polyethylene Glycol 17 GM DAILY / 0045 AC 02/18 PO 1016 Ramelteon 8 MG AT BEDTIME 02/18 2200 AC 02/18 PO 2121 Senna 187 MG AT BEDTIME / 0045 AC 02/18 PO 2120 Sodium Bicarbonate 325 MG 4 TIMES/DAY 02/09 1800 AC 02/18 PO 2123 Sodium Chloride 1,000 ML BOLUS ONE 02/19 1045 DC 02/19 IV 02/19 1144 1048 Sodium Chloride 1,000 ML BOLUS ONE 02/19 0930 DC 02/19 IV 02/19 1029 0930 Sodium Phosphate 1 UNIT .[TWICE] 02/14 1530 DC 02/14 SD 1530 Vital Signs & I&O Last 24 Hrs of Vitals and I&O: Vital Signs Date Time Temp Pulse Resp B/P B/P Pulse O2 O2 Flow FiO2 Mean Ox Delivery Rate 02/20 0400 95 Nasal 2.0L Cannula 02/20 0000 95 Nasal 2.0L Cannula 02/20 0000 98.4 79 17 140/74 95 Nasal 2.0L Cannula 02/19 2000 94 Nasal 2.0L Cannula 02/19 1600 99.0 72 16 120/86 99 Ventilator 40% 02/19 1200 97 Nasal 2.0L Cannula 02/19 0945 99 Nasal 2.0L Cannula 02/19 0945 97.4 74 16 96/54 99 Nasal 2.0L Cannula Intake & Output 02/20 1600 02/20 0800 02/20 0000 Intake Total 2950 120 Output Total 400 300 Balance 2550 -180 Intake, Blood 350 Product Intake, IV 100 0 Intake, Oral 2500 120 Number 4 0 Bowel Movements Output, Urine 400 300 Exam General Appearance: well developed/nourished, no apparent distress, alert, awake , comfortable, thin Head: normal appearance Neck: normal inspection, supple, full range of motion Respiratory: normal breath sounds Cardiovascular: regular rate/rhythm Abdomen: normal bowel sounds, soft, non-tender, no organomegaly Extremities: normal inspection Neurologic/Psychiatric: awake, alert, oriented x 3 Skin: intact, normal color Results Last 24 Hrs of Lab Results: Laboratory Tests 02/20/17 0343: Anion Gap 8, Estimated GFR 22 L, Glucose 69, Calcium 7.7 L, Phosphorus 4.6 H, Magnesium 2.1, Total Bilirubin 0.5, AST 13 L, ALT 14 L, Albumin 2.1 L, CBC w Diff NO MAN DIFF REQ, RBC 2.96 L, MCV 86.5, MCH 28.8, RDW 16.5 H, MPV 7.5, Gran % 76.4 H, Lymphocytes % 15.4 L, Monocytes % 5.2, Eosinophils % 2.1, Basophils % 0.9, Absolute Granulocytes 8.4 H, Absolute Lymphocytes 1.7, Absolute Monocytes 0.6, Absolute Eosinophils 0.2, Absolute Basophils 0.1, PUBS MCHC 33.3 02/19/17 1545: CBC w Diff NO MAN DIFF REQ, RBC 2.63 L, MCV 86.1, MCH 27.9, RDW 16.8 H, MPV 7.1 L, Gran % 72.3, Lymphocytes % 17.1 L, Monocytes % 7.5, Eosinophils % 2.2, Basophils % 0.9, Absolute Granulocytes 5.5, Absolute Lymphocytes 1.3, Absolute Monocytes 0.6, Absolute Eosinophils 0.2, Absolute Basophils 0.1, PUBS MCHC 32.5 L 02/19/17 1240: CBC w Diff NO MAN DIFF REQ, RBC 2.79 L, MCV 86.1, MCH 28.3, RDW 17.4 H, MPV 7.3 L, Gran % 77.2 H, Lymphocytes % 13.7 L, Monocytes % 6.3, Eosinophils % 2.3, Basophils % 0.5, Absolute Granulocytes 7.7 H, Absolute Lymphocytes 1.4, Absolute Monocytes 0.6, Absolute Eosinophils 0.2, Absolute Basophils 0, PUBS MCHC 32.9 L 02/19/17 0930: Anion Gap 8, Estimated GFR 19 L, BUN/Creatinine Ratio 12.5, PT 13.0 H, INR 1.24 H, CBC w Diff NO MAN DIFF REQ, RBC 2.87 L, MCV 83.7, MCH 27.8, RDW 17.7 H, MPV 7.0 L, Gran % 66.9, Lymphocytes % 20.9, Monocytes % 8.1, Eosinophils % 3.2, Basophils % 0.9, Absolute Granulocytes 5.8, Absolute Lymphocytes 1.8, Absolute Monocytes 0.7 H, Absolute Eosinophils 0.3, Absolute Basophils 0.1, PUBS MCHC 33.2 Impression/Plan Impression/Plan Impression/Plan: 71-year-old gentleman status post perianal fistula repair, fecal disimpaction, I & D of abscess, status post flexible sigmoidoscopy with BiCPAP cautery, epi injection, clip placement. Patient has got 7 PRBC since admission. Hemoglobin today is 8.5. yesterday morning patient had a large bloody bowel movement with several large clots. His BP decreased to 60/palp before improving to 95/60. He appears pale and ill, but is awake and alert. He was transferred to ICU, GI and colorectal surgery notified, transfused 1 units pRBC. Pt underwent exploratory surgery immediately ( oversawing of bleeding rectal ulcers) and bleeding controlled temporarily. pt planned for full colonoscopy tomorrow. Plan GI BLEED: CBC MONITOR W/F RECTAL BLEEDING TWO TAP WATER ENEMA TONIGHT NPO MIDNIGHT MAGNESIUM ONE BOTTLE TONIGHT NO IV CONTRAST MAINTENANCE IV NS 50 Ml/hr HOLD JIM/ARB F/P GI,SURGERY/NEPHRO Code Status: Full Code BALDEMAR DICK MD 02/20/17 1158: Impression/Plan Impression/Plan Recommendations: Baldemar Ko M.D. have examined this patient, reviewed available EMR data, personally reviewed images, discussed with resident/PA/ENVIRONMENTAL FIELD TECHNICIAN, discussed management plan with housestaff and nursing staff, discussed managment plan all of healthcare providers, discussed management plan with patient and/or family, agreed with resident/PA/ENVIRONMENTAL FIELD TECHNICIAN. The past history and parts of the chart have been autopopulated. Events reviewed Acute blood loss anemia, GI bleed F/u surgery and GI monitor h/h f/u nephrology recommendations DG when okay with GI/surgery TTS 35 min
--- NOTE | 2017-02-20 07:30 | NUR ---
PT STILL HAVING BROWN LIQUID STOOL. PT WAS ABLE TO DRINK MORE THAN 1/2 GALLON OF GOLYTELY. PT STATING HE'S CRAMPING & DOESN'T WANT ANYMORE. DR. VARGAS STATES IF PT DID NOT DRINK IT ALL UNABLE TO DO A SCOPE BECAUSE THERE'S NO ACTIVE BLEED & HAVING BROWN LIQUID STOOL. H/H 8.5/25.6 AFTER BLOOD TRANSFUSION. [employer].
[2017-02-20 08:00] VITALS: BP 140/70
--- NOTE | 2017-02-20 08:47 | Transfer of Care Summary ---
Hospital Course Course Hospital Course: 71 old gentleman with multiple perianal fistula and cellulitis with severe consitpation, fecal impaction admitted to [facility]. 2 units of PRBC transfused in view of low hemoglobin. Patient was operated on (02/10/17) for multiple perirectal fistula repair and abscess drainage. Patient had significant intraoperative blood loss, and hence transferred to ICU for close monitoring. Due to significant intraoperative blood loss further 2 units of blood transfusion given. Patient was transferred back to [facility] next day. on (02/14/2017) patient had significant amount of bleeding per rectum, hence transferred back to ICU for monitoring. Urgent sigmoidoscopy was performed. Surgery course uneventful. 1 unit of PRBC was transfused in ICU. same day Patient complained of right knee pain since morning. On examination right knee swelling +, warmth+, no redness, restriction of movement +. X-ray of the right knee ordered. 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 Advised nsaid and ice compression and outpatient follow up with ortho Patient was transferred to general medicine. On 02/19/17 patient was about to get discharge and had another bout of rectal bleeding, His BP decreased to 60/ palp before improving to 95/60. He appeared pale and ill, but is awake and alert. He was transferred to ICU, GI and colorectal surgery notified, transfused 1 units pRBC. Patient was immediately taken for exploratory surgery and oversawing of bleeding rectal ulcers done. In view of intermittent rectal bleeding tagged red blood cell scan was done, which showed active radiotracer extravasation into the rectum. Patient planned for full colonoscopY WHICH SHOWED FOUR POLYP WHICH WAS REMOVED. 2.5 cm transverse colon lipoma status post biopsies. pt is hemodynamically stable. Patient can be transferred back to [facility]. Complications: 1 . Fecal disimpaction and removal. 2. Multiple perianal fistula repair done. 3. Abscess around the perianal area drained. 4. Sigmoidoscopy 5. oversawing of bleeding rectal ulcers Pertinent Lab Results: WBC 11, hemoglobin 12.5, hematocrit 25.6, platelets 322, potassium 4.9, BUN 34, creatinine 2.8 Assessment/Plan: 71-year-old gentleman status post perianal fistula repair, fecal disimpaction, I & D of abscess, status post flexible sigmoidoscopy with BiCPAP cautery, epi injection, clip placement. Patient has got 7 PRBC since admission. 02/19/17- morning patient had a large bloody bowel movement with several large clots. His BP decreased to 60/palp before improving to 95/60. He appears pale and ill, but is awake and alert. He was transferred to ICU, GI and colorectal surgery notified, transfused 1 units pRBC. Pt underwent exploratory surgery immediately oversawing of bleeding rectal ulcers done. POST SURGERY: tagged red blood cell showed active radiotracer extravasation into the rectum, planned for full colonoscopy which showed four polyps which was removed. 2.5 cm transverse colon lipoma status post biopsies. 02/22/17- H&H 8.5/25.5 Plan TRANSFER TO [facility] CBC MONITOR W/F RECTAL BLEEDING HOLD JIM/ARB F/P GI,SURGERY/NEPHRO F/P PATHOLOGY
--- NOTE | 2017-02-20 12:00 | NUR ---
Patient is alert and oriented x's 3, able to follow commands and answer questions appropriately. No neuro deficits are noted. He has been downgraded to general medicine. Vitals remain stable and pt denies chest pain. On 2L nc, lungs clear and diminished at the bases. O2 sats 96% Abdomen is soft and non tender with + bowel sounds. He is INC of stool. Currently receiving po magnesium citrate as a bowel prep for a scheduled colonoscopy tomorrow. Patient had previously refused Golytyl overnight and stool remained brown this morning. Dr. Watkins in to see patient and discuss POC with this RN. Patient to have an extended prep this afternoon and night and coloscopy will be performed by Dr. Landa. He is to receive 2 tap water enemas tomorrow morning. continue Golytyl & mag citrate until stool is clear. Tolerating clear liquids at this time and will be NPO after midnight. Rectal cords/sutures remain in place. Stool has been watery and brown- No bright red blood noted. He uses the urinal to void- clear yellow urine. Skin is intact with trace BLE edema. He currently denies pain and offers no complaints. Will continue to closely monitor patient.
[2017-02-20 16:00] VITALS: BP 140/80
--- NOTE | 2017-02-20 16:45 | PN- General Surgery ---
Surgical Brief Attending Note Brief Attending Note: Pt remains HD stable today, H/H hasn't dropped. He is tolerating Golytely, no GI bleeding with the prep. Radiotracer scan yesterday isolated bleeding to the rectum only, but it was done after oversawing the rectal ulcers with residual bleeding present in the end of the case. Recommend proceeding with colonoscopy. Will wait its results.
--- NOTE | 2017-02-20 19:42 | PN- Gastroenterology ---
Assessment/Plan Assessment/Recommendations: * Recurrent lower GI bleed secondary to exposed rectal vessel, with hemostasis status post electrocautery/clip, and then again with surgical oversewing yesterday. Colorectal surgery believes the bleeding was coming from higher than the rectum, but the patient had brown stool without blood proximal to the rectum on initial endoscopic procedure, and again with bowel prep last night/today. Vital signs and hemoglobin are stable today. * Perianal fistulous disease with abscesses, status post surgical therapy with insertion of setons. Recommendations * Continue bowel prep with one bottle magnesium citrate today, and two 1-L tap water enemas in the morning. * Follow-up CBC in the morning * Colonoscopy tomorrow afternoon Subjective Subjective: No hematochezia since operating room. Did not complete bowel prep yesterday; was passing brown stool this morning. No abdominal pain. Objective Vital Signs and I&Os Vital Signs Date Time Temp Pulse Resp B/P B/P Pulse O2 O2 Flow FiO2 Mean Ox Delivery Rate 02/20 1600 99.0 80 20 140/80 97 Nasal 2.0L Cannula 02/20 1600 99 Nasal 2.0L Cannula 02/20 1519 Room Air 02/20 0800 99.0 78 16 140/70 96 Nasal 2.0L Cannula 02/20 0800 96 Nasal 2.0L Cannula 02/20 0400 95 Nasal 2.0L Cannula 02/20 0000 95 Nasal 2.0L Cannula 02/20 0000 98.4 79 17 140/74 95 Nasal 2.0L Cannula 02/19 2000 94 Nasal 2.0L Cannula Intake & Output 02/20 1600 02/20 0400 02/19 1600 02/19 0400 02/18 1600 02/18 0400 Intake Total 3700 120 1810 360 580 Output Total 1050 300 860 300 900 500 Balance 2650 -180 950 60 -320 -500 Intake, Blood 350 350 Product Intake, IV 100 0 1100 Intake, Oral 3250 120 360 360 580 Number 9 0 1 1 Bowel Movements Output, Urine 1050 300 860 300 900 500 Physical Exam: Abdomen soft, nondistended, nontender Current Medications: Current Medications Sig/Amy Start time Last Medication Dose Route Stop Time Status Admin Acetaminophen 650 MG Q6P PRN 02/09 1630 AC 02/15 PO 1053 Acetaminophen 1,000 MG Q6P PRN 02/09 1630 AC 07/07 IV 1923 Docusate Sodium 100 MG BID 02/12 2200 AC 02/20 PO 0934 Magnesium Citrate 300 ML ONE ONE 02/20 0815 DC 02/20 PO 02/20 0816 1214 Polyethylene Glycol 17 GM DAILY 02/10 004 AC 02/20 PO 0933 Ramelteon 8 MG AT BEDTIME 02/18 2200 AC 02/18 PO 2121 Senna 187 MG AT BEDTIME 02/10 004 AC 02/18 PO 2120 Sodium Bicarbonate 325 MG 4 TIMES/DAY 02/09 1800 AC 02/20 PO 1748 Sodium Phosphate 1 UNIT .[TWICE] 02/14 1530 DC 02/14 AK 1530 Results Pertinent Lab Results: Laboratory Tests 02/20 02/19 0343 1545 Chemistry Sodium (137 - 145 mmol/L) 139 Potassium (3.5 - 5.1 mmol/L) 4.9 Chloride (98 - 107 mmol/L) 110 H Carbon Dioxide (22 - 30 mmol/L) 21 L Anion Gap (5 - 16) 8 BUN (9 - 20 mg/dL) 34 H Creatinine (0.7 - 1.2 mg/dL) 2.8 H Estimated GFR (>60 ml/min) 22 L Glucose (65 - 99 mg/dL) 69 Calcium (8.4 - 10.2 mg/dL) 7.7 L Phosphorus (2.5 - 4.5 mg/dL) 4.6 H Magnesium (1.6 - 2.3 mg/dL) 2.1 Total Bilirubin (0.2 - 1.3 mg/dL) 0.5 AST (17 - 59 U/L) 13 L ALT (21 - 72 U/L) 14 L Albumin (3.5 - 5.0 g/dL) 2.1 L Hematology CBC w Diff NO MAN DIFF REQ NO MAN DIFF REQ WBC (4.8 - 10.8 /CUMM) 11.0 H 7.7 RBC (4.70 - 6.10 /CUMM) 2.96 L 2.63 L Hgb (14.0 - 18.0 G/DL) 8.5 L 7.3 *L Hct (42 - 52 %) 25.6 L 22.6 L MCV (80.0 - 94.0 FL) 86.5 86.1 MCH (27.0 - 31.0 PG) 28.8 27.9 RDW (11.5 - 14.5 %) 16.5 H 16.8 H Plt Count (130 - 400 /CUMM) 322 289 MPV (7.4 - 10.4 FL) 7.5 7.1 L Gran % (42.2 - 75.2 %) 76.4 H 72.3 Lymphocytes % (20.5 - 51.1 %) 15.4 L 17.1 L Monocytes % (1.7 - 9.3 %) 5.2 7.5 Eosinophils % (0 - 5 %) 2.1 2.2 Basophils % (0.0 - 2.0 %) 0.9 0.9 Absolute Granulocytes (1.4 - 6.5 /CUMM) 8.4 H 5.5 Absolute Lymphocytes (1.2 - 3.4 /CUMM) 1.7 1.3 Absolute Monocytes (0.10 - 0.60 /CUMM) 0.6 0.6 Absolute Eosinophils (0.0 - 0.7 /CUMM) 0.2 0.2 Absolute Basophils (0.0 - 0.2 /CUMM) 0.1 0.1 PUBS MCHC (33.0 - 37.0 G/DL) 33.3 32.5 L 11 07/11 1240 0930 Chemistry Sodium (137 - 145 mmol/L) 137 Potassium (3.5 - 5.1 mmol/L) 4.8 Chloride (98 - 107 mmol/L) 104 Carbon Dioxide (22 - 30 mmol/L) 25 Anion Gap (5 - 16) 8 BUN (9 - 20 mg/dL) 40 H Creatinine (0.7 - 1.2 mg/dL) 3.2 H Estimated GFR (>60 ml/min) 19 L BUN/Creatinine Ratio (7 - 25 %) 12.5 Coagulation PT (9.4 - 12.5 SEC) 13.0 H INR (0.90 - 1.17) 1.24 H Hematology CBC w Diff NO MAN DIFF REQ NO MAN DIFF REQ WBC (4.8 - 10.8 /CUMM) 10.0 8.6 RBC (4.70 - 6.10 /CUMM) 2.79 L 2.87 L Hgb (14.0 - 18.0 G/DL) 7.9 L 8.0 L Hct (42 - 52 %) 24.0 L 24.0 L MCV (80.0 - 94.0 FL) 86.1 83.7 MCH (27.0 - 31.0 PG) 28.3 27.8 RDW (11.5 - 14.5 %) 17.4 H 17.7 H Plt Count (130 - 400 /CUMM) 339 393 MPV (7.4 - 10.4 FL) 7.3 L 7.0 L Gran % (42.2 - 75.2 %) 77.2 H 66.9 Lymphocytes % (20.5 - 51.1 %) 13.7 L 20.9 Monocytes % (1.7 - 9.3 %) 6.3 8.1 Eosinophils % (0 - 5 %) 2.3 3.2 Basophils % (0.0 - 2.0 %) 0.5 0.9 Absolute Granulocytes (1.4 - 6.5 /CUMM) 7.7 H 5.8 Absolute Lymphocytes (1.2 - 3.4 /CUMM) 1.4 1.8 Absolute Monocytes (0.10 - 0.60 /CUMM) 0.6 0.7 H Absolute Eosinophils (0.0 - 0.7 /CUMM) 0.2 0.3 Absolute Basophils (0.0 - 0.2 /CUMM) 0 0.1 PUBS MCHC (33.0 - 37.0 G/DL) 32.9 L 33.2 02/18 02/18 1815 1011 Hematology CBC w Diff NO MAN DIFF REQ NO MAN DIFF REQ WBC (4.8 - 10.8 /CUMM) 9.9 8.3 RBC (4.70 - 6.10 /CUMM) 2.95 L 3.06 L Hgb (14.0 - 18.0 G/DL) 8.2 L 8.6 L Hct (42 - 52 %) 25.3 L 25.9 L MCV (80.0 - 94.0 FL) 85.9 84.7 MCH (27.0 - 31.0 PG) 27.9 28.2 RDW (11.5 - 14.5 %) 17.9 H 17.9 H Plt Count (130 - 400 /CUMM) 385 352 MPV (7.4 - 10.4 FL) 7.3 L 7.3 L Gran % (42.2 - 75.2 %) 68.5 69.0 Lymphocytes % (20.5 - 51.1 %) 18.5 L 18.5 L Monocytes % (1.7 - 9.3 %) 9.1 8.2 Eosinophils % (0 - 5 %) 3.3 3.5 Basophils % (0.0 - 2.0 %) 0.6 0.8 Absolute Granulocytes (1.4 - 6.5 /CUMM) 6.7 H 5.7 Absolute Lymphocytes (1.2 - 3.4 /CUMM) 1.8 1.5 Absolute Monocytes (0.10 - 0.60 /CUMM) 0.9 H 0.7 H Absolute Eosinophils (0.0 - 0.7 /CUMM) 0.3 0.3 Absolute Basophils (0.0 - 0.2 /CUMM) 0.1 0.1 PUBS MCHC (33.0 - 37.0 G/DL) 32.4 L 33.3
[2017-02-20 23:00] VITALS: BP 130/76
--- NOTE | 2017-02-20 23:59 | NUR ---
PT A GEN MED HOLD. PT A/OX3, FOLLOWS COMMANDS. DENIES ANY PAIN AT PRESENT. BREATH SOUNDS CLEAR THOUGHOUT BILATERALLY. NO COUGH, SOB OR RESP DISTRESS NOTED AT PRESENT. VS STABLE AT PRESENT. ABD SOFT, NONTENDER, NONDISTENDED, POSITIVE BOWEL SOUNDS. NO EVIDENCE OF GI BLEEDING NOTED AT PRESENT. NO N/V OR BM'S NOTED AT PRESENT. VOIDS. SKIN INTACT
[2017-02-21 05:34] LABS: ABSOLUTE BASOPHIL COUNT 0 /CUMM (0.0-0.2); ABSOLUTE EOSINOPHIL COUNT 0.3 /CUMM (0.0-0.7); ABSOLUTE GRANULOCYTE CT 8.2 /CUMM (1.4-6.5); ABSOLUTE LYMPH COUNT 1.5 /CUMM (1.2-3.4); ABSOLUTE MONOCYTE COUNT 0.9 /CUMM (0.10-0.60); BASOPHIL % 0.4 % (0.0-2.0); EOSINOPHIL % 2.6 % (0-5); GRANULOCYTE % 74.6 % (42.2-75.2); MEAN CORPUSCULAR HGB 28.1 PG (27.0-31.0); MEAN CORPUSCULAR HGB CONC 32.8 G/DL (33.0-37.0); MEAN CORPUSCULAR VOLUME 85.9 FL (80.0-94.0); MEAN PLATELET VOLUME 7.1 FL (7.4-10.4); PLATELET COUNT 317 /CUMM (130-400); RBC DISTRIBUTION WIDTH 16.8 % (11.5-14.5); WHITE BLOOD CELL COUNT 10.9 /CUMM (4.8-10.8)
[2017-02-21 07:00] VITALS: BP 140/70
--- NOTE | 2017-02-21 08:46 | PN- CRCU ---
Subjective HPI/Critical Care Issues: I saw the patient today at bedside. No overnight events. Patient denies any chest pain, dyspnea, chills with fever. Vitals stable. H&H 7.9. Plan today- for colonoscopy. Objective Current Medications: Current Medications Sig/Amy Start time Last Medication Dose Route Stop Time Status Admin Acetaminophen 650 MG Q6P PRN 02/09 1630 AC 02/15 PO 1053 Acetaminophen 1,000 MG Q6P PRN 02/09 1630 AC 02/15 IV 1923 Docusate Sodium 100 MG BID 02/12 220 AC 02/20 PO 213 Polyethylene Glycol 17 GM DAILY 02/10 0045 AC 02/20 PO 0933 Ramelteon 8 MG AT BEDTIME 02/18 220 AC 02/20 PO 213 Senna 187 MG AT BEDTIME 02/10 0045 AC 02/20 PO 213 Sodium Bicarbonate 325 MG 4 TIMES/DAY 02/09 1800 AC 02/20 PO 2137 Vital Signs & I&O Last 24 Hrs of Vitals and I&O: Vital Signs Date Time Temp Pulse Resp B/P B/P Pulse O2 O2 Flow FiO2 Mean Ox Delivery Rate 02/21 0000 97 Nasal 2.0L Cannula 02/20 2300 99.0 92 16 130/76 97 Nasal 2.0L Cannula 02/20 1600 99.0 80 20 140/80 97 Nasal 2.0L Cannula 02/20 1600 99 Nasal 2.0L Cannula 02/20 1519 Room Air Intake & Output 02/21 1600 02/21 0800 02/21 0000 Intake Total 1010 Output Total 300 800 Balance -300 210 Intake, IV 10 Intake, Oral 1000 Number 2 8 Bowel Movements Output, Urine 300 800 Exam General Appearance: well developed/nourished, no apparent distress, alert, awake , anxious, comfortable, thin Head: normal appearance Neck: normal inspection, supple, full range of motion Respiratory: normal breath sounds, chest non-tender, no respiratory distress, quiet respiration Cardiovascular: regular rate/rhythm Abdomen: normal bowel sounds, soft, non-tender, no organomegaly Extremities: normal inspection Neurologic/Psychiatric: awake, alert, oriented x 3 Skin: intact, normal color Results Last 24 Hrs of Lab Results: Laboratory Tests 02/21/17 0458: Anion Gap 10, Estimated GFR 22 L, Glucose 84, Calcium 8.0 L, Phosphorus 3.6, Magnesium 2.2, Total Bilirubin 0.5, AST 10 L, ALT 23, Albumin 2.1 L, CBC w Diff NO MAN DIFF REQ, RBC 2.80 L, MCV 85.9, MCH 28.1, RDW 16.8 H, MPV 7.1 L, Gran % 74.6, Lymphocytes % 13.8 L, Monocytes % 8.6, Eosinophils % 2.6, Basophils % 0.4, Absolute Granulocytes 8.2 H, Absolute Lymphocytes 1.5, Absolute Monocytes 0.9 H, Absolute Eosinophils 0.3, Absolute Basophils 0, PUBS MCHC 32.8 L Impression/Plan Impression/Plan Impression/Plan: 71-year-old gentleman status post perianal fistula repair, fecal disimpaction, I & D of abscess, status post flexible sigmoidoscopy with BiCPAP cautery, epi injection, clip placement. Patient has got 7 PRBC since admission. Hemoglobin today is 7.9. On 02/19/17 morning patient had a large bloody bowel movement with several large clots. His BP decreased to 60/palp before improving to 95/60. He appears pale and ill, but is awake and alert. He was transferred to ICU, GI and colorectal surgery notified, transfused 1 units pRBC. Pt underwent exploratory surgery immediately ( oversawing of bleeding rectal ulcers) and bleeding controlled temporarily. pt planned for full colonoscopy today. Plan NPO COLONOSCOPY TODAY CBC MONITOR/VITALS W/F RECTAL BLEEDING NO IV CONTRAST MAINTENANCE IV NS 50 Ml/hr HOLD JIM/ARB F/P GI,SURGERY/NEPHRO Code Status: Full Code Problem List: 1. Anemia 2. GI bleed 3. Chronic renal disease
--- NOTE | 2017-02-21 09:30 | PN- Pulmonary ---
Subjective HPI/Critical Care Issues: pt seen and examined doing well gm hold following gi plan hgb 7.9 Objective Current Medications: Current Medications Sig/Amy Start time Last Medication Dose Route Stop Time Status Admin Acetaminophen 650 MG Q6P PRN 02/09 1630 AC 02/15 PO 1053 Acetaminophen 1,000 MG Q6P PRN 02/09 1630 AC 02/15 IV 1923 Docusate Sodium 100 MG BID 02/12 2200 AC 02/20 PO 213 Polyethylene Glycol 17 GM DAILY 02/10 004 AC 02/20 PO 0933 Ramelteon 8 MG AT BEDTIME 02/18 220 AC 02/20 PO 213 Senna 187 MG AT BEDTIME 02/10 004 AC 02/20 PO 213 Sodium Bicarbonate 325 MG 4 TIMES/DAY 02/09 1800 AC 02/20 PO 213 Vital Signs & I&O Last 24 Hrs of Vitals and I&O: Vital Signs Date Time Temp Pulse Resp B/P B/P Pulse O2 O2 Flow FiO2 Mean Ox Delivery Rate 02/21 0000 97 Nasal 2.0L Cannula 02/20 2300 99.0 92 16 130/76 97 Nasal 2.0L Cannula 02/20 1600 99.0 80 20 140/80 97 Nasal 2.0L Cannula 02/20 1600 99 Nasal 2.0L Cannula 02/20 1519 Room Air Intake & Output 02/21 1600 02/21 0800 02/21 0000 Intake Total 1010 Output Total 300 800 Balance -300 210 Intake, IV 10 Intake, Oral 1000 Number 2 8 Bowel Movements Output, Urine 300 800 Exam Other Physical Findings: Impression 71 M * acute blood loss anemia, rectal bleed * harpreet on ckd Plan -nephrology, gi, surgery appreciated -plan for endoscopy today -monitor h/h -gm hold -will sign off to hospitalist team -call if any issues ALPS for DVT prophylaxis TTS 35 min Results Last 24 Hrs of Lab Results: Laboratory Tests 02/21/17 0458: Anion Gap 10, Estimated GFR 22 L, Glucose 84, Calcium 8.0 L, Phosphorus 3.6, Magnesium 2.2, Total Bilirubin 0.5, AST 10 L, ALT 23, Albumin 2.1 L, CBC w Diff NO MAN DIFF REQ, RBC 2.80 L, MCV 85.9, MCH 28.1, RDW 16.8 H, MPV 7.1 L, Gran % 74.6, Lymphocytes % 13.8 L, Monocytes % 8.6, Eosinophils % 2.6, Basophils % 0.4, Absolute Granulocytes 8.2 H, Absolute Lymphocytes 1.5, Absolute Monocytes 0.9 H, Absolute Eosinophils 0.3, Absolute Basophils 0, PUBS MCHC 32.8 L Impression/Plan Impression/Plan Impression/Plan: Impression 71 year old man * acute blood loss anemia, lower gi bleed * rectal surgery/local infection Plan -gi follow up -cbc monitoring -hemodynamically stable -no tele issues -DG gm -diet per gi -f/u colorectal sx DVT prophylaxis at all times (ALPS) TTS 35 min DG GM Recommendations: Baldemar Ko M.D. have examined this patient, reviewed available EMR data, personally reviewed images, discussed with resident/PA/POULTRY SERVICE TECHNICIAN, discussed management plan with housestaff and nursing staff, discussed managment plan all of healthcare providers, discussed management plan with patient and/or family, agreed with resident/PA/POULTRY SERVICE TECHNICIAN. The past history and parts of the chart have been autopopulated. Events reviewed Acute blood loss anemia, GI bleed F/u surgery and GI monitor h/h f/u nephrology recommendations DG when okay with GI/surgery TTS 35 min
--- NOTE | 2017-02-21 10:07 | PN- Nephrology ---
Assessment/Plan Assessment: 1. CKD: severe, stage 4, due to HTN; back to baseline 2. ROSE: resolved prerenal Suggestion: 1. No Fleets 2. limit additional Mgcitrate --> Golytely & tap water enemas OK will follow prn Subjective Subjective: Hungry - no SOB No more GI bleeding Objective Vital Signs and I&Os Vital Signs Date Time Temp Pulse Resp B/P B/P Pulse O2 O2 Flow FiO2 Mean Ox Delivery Rate 02/21 0000 97 Nasal 2.0L Cannula 02/20 2300 99.0 92 16 130/76 97 Nasal 2.0L Cannula 02/20 1600 99.0 80 20 140/80 97 Nasal 2.0L Cannula 02/20 1600 99 Nasal 2.0L Cannula 02/20 1519 Room Air Intake & Output 02/21 1600 02/21 0400 02/20 1600 02/20 0400 02/19 1600 02/19 0400 Intake Total 1010 3700 120 1810 360 Output Total 228 396 6318 300 860 300 Balance -782 233 5064 -180 950 60 Intake, Blood 350 350 Product Intake, IV 10 100 0 1100 Intake, Oral 1000 3250 120 360 360 Number 2 8 9 0 1 Bowel Movements Output, Urine 774 674 8432 300 860 300 Physical Exam General Appearance: no apparent distress, alert, awake Head: atraumatic, normal appearance Ears, Nose, Throat: normal ENT inspection Neck: normal inspection Respiratory: normal breath sounds, quiet respiration, lungs clear Cardiovascular: regular rate/rhythm Abdomen: soft, non-tender Extremities: no edema Neurologic/Psychiatric: awake, alert Skin: normal color, warm/dry Current Medications: Current Medications Sig/Amy Start time Last Medication Dose Route Stop Time Status Admin Acetaminophen 650 MG Q6P PRN 02/09 1630 AC 02/15 PO 1053 Acetaminophen 1,000 MG Q6P PRN 02/09 1630 AC 02/15 IV 1923 Docusate Sodium 100 MG BID 02/12 2200 AC 02/20 PO 213 Polyethylene Glycol 17 GM DAILY 02/10 004 AC 02/20 PO 0933 Ramelteon 8 MG AT BEDTIME 02/18 2200 AC 02/20 PO 213 Senna 187 MG AT BEDTIME 02/10 0045 AC 02/20 PO 213 Sodium Bicarbonate 325 MG 4 TIMES/DAY 02/09 1800 AC 02/20 PO 2137 Results Pertinent Lab Results: Laboratory Tests 02/21 02/20 8525 0539 Chemistry Sodium (137 - 145 mmol/L) 138 139 Potassium (3.5 - 5.1 mmol/L) 4.8 4.9 Chloride (98 - 107 mmol/L) 105 110 H Carbon Dioxide (22 - 30 mmol/L) 23 21 L Anion Gap (5 - 16) 10 8 BUN (9 - 20 mg/dL) 30 H 34 H Creatinine (0.7 - 1.2 mg/dL) 2.8 H 2.8 H Estimated GFR (>60 ml/min) 22 L 22 L Glucose (65 - 99 mg/dL) 84 69 Calcium (8.4 - 10.2 mg/dL) 8.0 L 7.7 L Phosphorus (2.5 - 4.5 mg/dL) 3.6 4.6 H Magnesium (1.6 - 2.3 mg/dL) 2.2 2.1 Total Bilirubin (0.2 - 1.3 mg/dL) 0.5 0.5 AST (17 - 59 U/L) 10 L 13 L ALT (21 - 72 U/L) 23 14 L Albumin (3.5 - 5.0 g/dL) 2.1 L 2.1 L Hematology CBC w Diff NO MAN DIFF REQ NO MAN DIFF REQ WBC (4.8 - 10.8 /CUMM) 10.9 H 11.0 H RBC (4.70 - 6.10 /CUMM) 2.80 L 2.96 L Hgb (14.0 - 18.0 G/DL) 7.9 L 8.5 L Hct (42 - 52 %) 24.0 L 25.6 L MCV (80.0 - 94.0 FL) 85.9 86.5 MCH (27.0 - 31.0 PG) 28.1 28.8 RDW (11.5 - 14.5 %) 16.8 H 16.5 H Plt Count (130 - 400 /CUMM) 317 322 MPV (7.4 - 10.4 FL) 7.1 L 7.5 Gran % (42.2 - 75.2 %) 74.6 76.4 H Lymphocytes % (20.5 - 51.1 %) 13.8 L 15.4 L Monocytes % (1.7 - 9.3 %) 8.6 5.2 Eosinophils % (0 - 5 %) 2.6 2.1 Basophils % (0.0 - 2.0 %) 0.4 0.9 Absolute Granulocytes (1.4 - 6.5 /CUMM) 8.2 H 8.4 H Absolute Lymphocytes (1.2 - 3.4 /CUMM) 1.5 1.7 Absolute Monocytes (0.10 - 0.60 /CUMM) 0.9 H 0.6 Absolute Eosinophils (0.0 - 0.7 /CUMM) 0.3 0.2 Absolute Basophils (0.0 - 0.2 /CUMM) 0 0.1 PUBS MCHC (33.0 - 37.0 G/DL) 32.8 L 33.3 02/19 02/19 1545 1240 Hematology CBC w Diff NO MAN DIFF REQ NO MAN DIFF REQ WBC (4.8 - 10.8 /CUMM) 7.7 10.0 RBC (4.70 - 6.10 /CUMM) 2.63 L 2.79 L Hgb (14.0 - 18.0 G/DL) 7.3 *L 7.9 L Hct (42 - 52 %) 22.6 L 24.0 L MCV (80.0 - 94.0 FL) 86.1 86.1 MCH (27.0 - 31.0 PG) 27.9 28.3 RDW (11.5 - 14.5 %) 16.8 H 17.4 H Plt Count (130 - 400 /CUMM) 289 339 MPV (7.4 - 10.4 FL) 7.1 L 7.3 L Gran % (42.2 - 75.2 %) 72.3 77.2 H Lymphocytes % (20.5 - 51.1 %) 17.1 L 13.7 L Monocytes % (1.7 - 9.3 %) 7.5 6.3 Eosinophils % (0 - 5 %) 2.2 2.3 Basophils % (0.0 - 2.0 %) 0.9 0.5 Absolute Granulocytes (1.4 - 6.5 /CUMM) 5.5 7.7 H Absolute Lymphocytes (1.2 - 3.4 /CUMM) 1.3 1.4 Absolute Monocytes (0.10 - 0.60 /CUMM) 0.6 0.6 Absolute Eosinophils (0.0 - 0.7 /CUMM) 0.2 0.2 Absolute Basophils (0.0 - 0.2 /CUMM) 0.1 0 PUBS MCHC (33.0 - 37.0 G/DL) 32.5 L 32.9 L 02/19 02/18 0930 1815 Chemistry Sodium (137 - 145 mmol/L) 137 Potassium (3.5 - 5.1 mmol/L) 4.8 Chloride (98 - 107 mmol/L) 104 Carbon Dioxide (22 - 30 mmol/L) 25 Anion Gap (5 - 16) 8 BUN (9 - 20 mg/dL) 40 H Creatinine (0.7 - 1.2 mg/dL) 3.2 H Estimated GFR (>60 ml/min) 19 L BUN/Creatinine Ratio (7 - 25 %) 12.5 Coagulation PT (9.4 - 12.5 SEC) 13.0 H INR (0.90 - 1.17) 1.24 H Hematology CBC w Diff NO MAN DIFF REQ NO MAN DIFF REQ WBC (4.8 - 10.8 /CUMM) 8.6 9.9 RBC (4.70 - 6.10 /CUMM) 2.87 L 2.95 L Hgb (14.0 - 18.0 G/DL) 8.0 L 8.2 L Hct (42 - 52 %) 24.0 L 25.3 L MCV (80.0 - 94.0 FL) 83.7 85.9 MCH (27.0 - 31.0 PG) 27.8 27.9 RDW (11.5 - 14.5 %) 17.7 H 17.9 H Plt Count (130 - 400 /CUMM) 393 385 MPV (7.4 - 10.4 FL) 7.0 L 7.3 L Gran % (42.2 - 75.2 %) 66.9 68.5 Lymphocytes % (20.5 - 51.1 %) 20.9 18.5 L Monocytes % (1.7 - 9.3 %) 8.1 9.1 Eosinophils % (0 - 5 %) 3.2 3.3 Basophils % (0.0 - 2.0 %) 0.9 0.6 Absolute Granulocytes (1.4 - 6.5 /CUMM) 5.8 6.7 H Absolute Lymphocytes (1.2 - 3.4 /CUMM) 1.8 1.8 Absolute Monocytes (0.10 - 0.60 /CUMM) 0.7 H 0.9 H Absolute Eosinophils (0.0 - 0.7 /CUMM) 0.3 0.3 Absolute Basophils (0.0 - 0.2 /CUMM) 0.1 0.1 PUBS MCHC (33.0 - 37.0 G/DL) 33.2 32.4 L 07/10 1011 Hematology CBC w Diff NO MAN DIFF REQ WBC (4.8 - 10.8 /CUMM) 8.3 RBC (4.70 - 6.10 /CUMM) 3.06 L Hgb (14.0 - 18.0 G/DL) 8.6 L Hct (42 - 52 %) 25.9 L MCV (80.0 - 94.0 FL) 84.7 MCH (27.0 - 31.0 PG) 28.2 RDW (11.5 - 14.5 %) 17.9 H Plt Count (130 - 400 /CUMM) 352 MPV (7.4 - 10.4 FL) 7.3 L Gran % (42.2 - 75.2 %) 69.0 Lymphocytes % (20.5 - 51.1 %) 18.5 L Monocytes % (1.7 - 9.3 %) 8.2 Eosinophils % (0 - 5 %) 3.5 Basophils % (0.0 - 2.0 %) 0.8 Absolute Granulocytes (1.4 - 6.5 /CUMM) 5.7 Absolute Lymphocytes (1.2 - 3.4 /CUMM) 1.5 Absolute Monocytes (0.10 - 0.60 /CUMM) 0.7 H Absolute Eosinophils (0.0 - 0.7 /CUMM) 0.3 Absolute Basophils (0.0 - 0.2 /CUMM) 0.1 PUBS MCHC (33.0 - 37.0 G/DL) 33.3
--- NOTE | 2017-02-21 14:31 | Proc Note Colonoscopy ---
Colonoscopy Procedure Medical History: unchanged (see meditech notes) Mental Status: alert/oriented Heart/Lung Eval Prior to Sedation: within normal limits Candidate for Sedation? Yes Date of Last Colonoscopy: No prior full colonoscopy; s/p flex sig one week ago Procedure Date: 02/21/17 Procedure Type: colonoscopy polyp/biopsy [employer] Consultant: Celso Landa MD ASA Classification: III Indications: Rectal bleeding. Instrument (Colonoscope): single channel Meds Received: MAC Patient's Tolerance: good Complications: none Extent Reached: cecum Prep: fair (5-10% obscured) Procedure: After getting written informed consent the patient was placed in the left lateral decubitus position with pulse oximetry, cardiac monitoring, and supplemental oxygen was given. IV sedation was given until the desired effect was achieved. A rectal exam was performed which was normal. A high definition variable stiffness Olympus colonoscope was then inserted into the anus and advanced to the cecum with little difficulty. Retroflexed views were obtained in both the right colon and rectum and photodocumentation was obtained. Close inspection of the colonic mucosa was performed on insertion and withdrawal of the colonoscope with a withdrawal time that was adequate in length to closely inspect all folds and alford of the colon with care to suction and irrigate away any leftover remaining stool to the best of my ability. Findings: There was a 1 cm pedunculated polyp in the sigmoid colon which was removed with snare polypectomy and monopolar cautery and was retrieved through the anus and was sent to pathology for further evaluation. There was also a 6 mm sessile polyp in the descending colon which was also removed with snare polypectomy and monopolar cautery and was retrieved through the colonoscope and was sent to pathology for further evaluation. There was a 4 mm sessile polyp in the sigmoid colon and another 4 mm sessile polyp in the ascending colon. Both of those polyps were removed with multiple bites of a cold biopsy forceps and were sent to pathology for further evaluation. There was a 2.5 cm lipoma in the transverse colon which was biopsied revealing underlying adipose tissue and the samples were sent to pathology for further evaluation. There were several scattered diverticula appreciated in the sigmoid colon, but none of the visualized diverticula had any stigmata of recent hemorrhage. In the distal rectum was evidence of the prior surgery with some suture material visible and cautery artifact was also appreciated from his flexible sigmoidoscopy 1 week ago. There was a small amount of oozing from the suture material which ceased by the time the procedure was over. Retroflexed views in the rectum revealed evidence of prior surgery and the previously mentioned cautery artifact. Retroflexed views in the right colon did not reveal any polyps. There was no blood appreciated throughout the colon with the exception of the small amount of oozing from the prior surgery. There was a small amount of leftover liquid stool in the colon most of which was able to be cleared through the colonoscope, however the mucosa could not be completely cleared and lesions less than 1 cm could not be definitively ruled out, but there were no obvious large polyps or masslike lesions appreciated. Impression: 1. 4 polyps status post removal via combination of snare polyp rectum he and cold biopsy forceps. 2. 2.5 cm transverse colon lipoma status post biopsies. 3. Sigmoid diverticulosis without stigmata of recent hemorrhage. 4. Evidence of prior surgery with an oversewn vessel seen in the distal rectum with minimal oozing of blood that ceased at the conclusion of the procedure. 5. No active bleeding or stigmata of recent hemorrhage appreciated throughout the remainder of the colon. 6. Fair prep so that lesions less than 1 cm could not be definitively ruled out , but no obvious masslike lesions appreciated. Recommendations: 1. His diet should be advanced as tolerated. 2. He should be continued on a bowel regimen. 3. He should follow up the pathology results with me as an outpatient. 4. Based on the results of the pathology he should have a repeat colonoscopy in 3-5 years time. 5. GI and colorectal surgery should be notified for any recurrent, hemodynamically significant, overt GI bleeding. Followup Colonscopy Screen In: pending biopsy result(s) CC: MAEVE ALVARADO; ROBERTO STANLEY,RENATA
[2017-02-21 16:00] VITALS: BP 142/80
--- NOTE | 2017-02-21 16:40 | NUR ---
RETRUNED FROM GI 330PM,MOVED HIMSELF INTO BED SOME ORANGE LIQ DRAINAGE FROM AREA. ROOM AIR,2 [address], VDED THIS AM. ORDERED DIET FOR PT WHO WANTS FOOD. RESTING COMFORTABLE AT PRESENT. GM HOLD
--- NOTE | 2017-02-21 17:53 | PN- General Surgery ---
Surgical Brief Attending Note Brief Attending Note: Colonoscopy completed today by GI. Multiple polyps removed, but no evidence of active bleed. Continue monitoring. If patient remains HD stable without any additional GI bleeds, he can be d/jerson home in a few days from the surgical standpoint to follow up as outpatient. If patient has a large GI bleed, recommend repeat localization study with tagged RBC.
[2017-02-21 22:24] VITALS: BP 128/70
[2017-02-22 06:54] VITALS: BP 118/62
--- NOTE | 2017-02-22 08:05 | PN- Housestaff ---
DARYL GUTIERREZ 02/22/17 0804: Subjective Follow-up For: Perirectal cellulitus BRBPR Constipation Subjective: Patient states he has had two episodes of diarrhea this morning and would like to know why. No acute events overnight. Review of Systems Constitutional: Reports: see HPI. Objective Last 24 Hrs of Vital Signs/I&O Vital Signs Date Time Temp Pulse Resp B/P B/P Pulse O2 O2 Flow FiO2 Mean Ox Delivery Rate 02/22 0654 98.2 83 20 118/62 99 Nasal Cannula 02/21 2224 99.0 76 20 128/70 100 Nasal 2.0L Cannula 02/21 2213 Nasal 2.0L Cannula 02/21 1600 98.0 78 18 142/80 100 Intake & Output 02/22 1600 02/22 0800 02/22 0000 Intake Total 400 Output Total 500 Balance -100 Intake, Oral 400 Number 1 Bowel Movements Output, Urine 500 Physical Exam General Appearance: Alert, Oriented X3, Cooperative, No Acute Distress HEENT: Atraumatic, PERRLA Neck: Supple, No JVD, No thryomegaly Cardiovascular: Normal S1, Normal S2 Lungs: Clear to Auscultation, Normal Air Movement Abdomen: Normal Bowel Sounds, Soft, No Tenderness, No Hepatospenomegaly Extremities: No Cyanosis, No Edema Current Medications: Current Medications Sig/Amy Start time Last Medication Dose Route Stop Time Status Admin Acetaminophen 650 MG Q6P PRN 02/09 1630 AC 02/15 PO 1053 Acetaminophen 1,000 MG Q6P PRN 02/09 1630 AC 02/15 IV 1923 Chlorhexidine 1 GM .STK-MED ONE 02/21 1500 DC Gluconate TOP 02/21 1501 Docusate Sodium 100 MG BID 02/12 2200 AC 02/21 PO 2203 Polyethylene Glycol 17 GM DAILY 02/10 0045 AC 02/21 PO 1048 Ramelteon 8 MG AT BEDTIME 02/180 AC 02/21 PO 2203 Senna 187 MG AT BEDTIME 02/10 0045 AC 02/21 PO 2203 Sodium Bicarbonate 325 MG 4 TIMES/DAY 02/09 1800 AC 02/21 PO 2203 Last 24 Hrs of Lab/Matt Results Last 24 Hrs of Labs/Mics: Laboratory Tests 02/22/17 0732: Sodium Pending, Potassium Pending, Chloride Pending, Carbon Dioxide Pending, Anion Gap Pending, BUN Pending, Creatinine Pending, Glucose Pending, Calcium Pending, Phosphorus Pending, Magnesium Pending, Total Bilirubin Pending, AST Pending, ALT Pending, Albumin Pending, CBC w Diff Pending, WBC Pending, RBC Pending, Hgb Pending, Hct Pending, MCV Pending, MCH Pending, RDW Pending, Plt Count Pending, MPV Pending, PUBS MCHC Pending Orders Radiology Findings: 02/09/17-1308 CT ABD & PELVIS W/O IV CONTRAS IMPRESSION: The study is somehow limited for evaluation of proctitis/abscess due to lack of intravenous contrast. Presence of large amount of stool in the rectum with distention of the rectum up to 6 cm in transverse diameter suggest fecal impaction. There are mild inflammatory changes posterior to the rectum, in the presacral region. No perirectal abscess is seen. The rectal wall thickness is within normal limits. Right renal stone. Left renal cortical cysts. Atherosclerosis and mild aneurysmal dilatation of infrarenal abdominal aorta. Miscellaneous Findings: 02/19/17-1536 TAGGED RBC SCAN IMPRESSION: Findings consistent with active radiotracer extravasation into the rectum, consistent with the history of rectal bleeding. Assessment/Plan Assessment: 71yo M with a PMH of [id number] tobacco use, hypertension, hyperlipidemia, chronic kidney disease, chronic anemia, stage II diastolic heart failure ( echocardiogram in 2010) who presented to [place] with an extended period of perirectal and rectal discomfort, occasional bloody stool and spotting. P: 1. Perianal fistula/cellulitus * The patient was found to have a drop in H&H underwent an I&D of the perianal fistula and abscesses on 02/10/2017. Intraoperative acute blood loss anemia requiring 2 units of transfusion and postprocedure stay in the ICU. 2. Acute blood loss anemia HD5 the patient passed multiple large clots with resultant hypotension and again transferred to the ICU where he did receive 2 more units of transfusion and underwent a flexible sigmoidoscopy with BiCAP cautery, epinephrine injection and clip placement. 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 * Transfused rbcs x 8 * Stable * Serial CBC monitoring 3. Constipation now resolved CT showed a large amount of stool in the rectum with distention up to 6 cm in transverse diameter suggesting fecal impaction. Mild inflammatory changes posterior to cecum. * AXR showed stool impaction * Patient placed on bowel regimen which now PRN due to 2 episodes of diarrhea 4. Left wrist pain * Wrist XR neg for fracture. Degenerative changes noted. * No intervention needed at this time 5. Right knee swelling * XR neg for fracture or acute abnormality * No intervention needed at this time 6. Leukocytosis * stable 7. Chronic kidney disease * Lasix held 8. HTN * Lisinopril resumed to 5mg PO * Metoprolol 25mg direct service worker consult put in as per case mgmt recommendation for living arrangements. As per CM patient unable to return home after hospital stay. Full liquid diet Full code Problem List: 1. GI bleed 2. Anemia 3. HTN (hypertension) 4. Chronic renal disease 5. Cellulitis of rectal area 6. Fecal impaction 7. Perianal fistula 8. Acute blood loss anemia 9. Right anterior knee pain Pain Ratin Pain Location: N/A Pain Goal: Remain pain free Pain Plan: Tylenol PRN Tomorrow's Labs & Rationales: CBC to monitor anemia BMP tp monitor renal function TULIO CANTU 02/22/17 1156: Attending MD Review Statement Attending Statement Attending MD Statement: examined this patient, discuss w/resident/PA/AUTOMOTIVE MANAGER, agreed w/resident/PA/AUTOMOTIVE MANAGER, discussed with family, reviewed EMR data (avail), discussed with nursing, discussed with case mgmt, reviewed images, amended to note Attending Assessment/Plan: 71 o/m transferred from icu as gen/med hold for acute blood loss anemia, GI bleed s/p 6 unit of transfusion, had colonscopy yesterday, h/h this am is stable. Patient had 4 polyps which removed. Patient had diarrhea this am 2 episodes. Patient needs to get serial cbc monitoring and transfuse as needed. Patient on hold antihypertensives, resume bp meds as tolerated. consider PT eval. gi/dvt prophyalxis full code. with nursing, discussed with case mgmt, reviewed images, amended to note Attending Assessment/Plan: 71 o/m transferred from icu as gen/med hold for acute blood loss anemia, GI bleed s/p 6 unit of transfusion, had colonscopy yesterday, h/h this am is stable. Patient had 4 polyps which removed. Patient had diarrhea this am 2 episodes. Patient needs to get serial cbc monitoring and transfuse as needed. Patient on hold antihypertensives, resume bp meds as tolerated. consider PT eval. gi/dvt prophyalxis full code.
[2017-02-22 08:45] LABS: ABSOLUTE BASOPHIL COUNT 0.1 /CUMM (0.0-0.2); ABSOLUTE EOSINOPHIL COUNT 0.4 /CUMM (0.0-0.7); ABSOLUTE GRANULOCYTE CT 8.4 /CUMM (1.4-6.5); ABSOLUTE LYMPH COUNT 1.2 /CUMM (1.2-3.4); ABSOLUTE MONOCYTE COUNT 0.9 /CUMM (0.10-0.60); BASOPHIL % 0.5 % (0.0-2.0); EOSINOPHIL % 3.8 % (0-5); GRANULOCYTE % 76.8 % (42.2-75.2); HEMATOCRIT 25.5 % (42-52); MEAN CORPUSCULAR HGB 28.5 PG (27.0-31.0); MEAN CORPUSCULAR HGB CONC 33.3 G/DL (33.0-37.0); MEAN CORPUSCULAR VOLUME 85.5 FL (80.0-94.0); MEAN PLATELET VOLUME 7.5 FL (7.4-10.4); PLATELET COUNT 322 /CUMM (130-400); RBC DISTRIBUTION WIDTH 16.7 % (11.5-14.5); RED BLOOD CELL CT 2.98 /CUMM (4.70-6.10)
[2017-02-22 12:23] VITALS: BP 130/85
[2017-02-22 14:23] VITALS: BP 125/80
[2017-02-22 22:51] VITALS: BP 122/71
[2017-02-23 06:44] VITALS: BP 104/60; BP 126/64
[2017-02-23 08:36] LABS: ABSOLUTE BASOPHIL COUNT 0.1 /CUMM (0.0-0.2); ABSOLUTE EOSINOPHIL COUNT 0.2 /CUMM (0.0-0.7); ABSOLUTE GRANULOCYTE CT 7.8 /CUMM (1.4-6.5); ABSOLUTE LYMPH COUNT 1.4 /CUMM (1.2-3.4); ABSOLUTE MONOCYTE COUNT 1.1 /CUMM (0.10-0.60); BASOPHIL % 0.6 % (0.0-2.0); EOSINOPHIL % 1.6 % (0-5); GRANULOCYTE % 73.7 % (42.2-75.2); HEMATOCRIT 23.8 % (42-52); MEAN CORPUSCULAR HGB 28.9 PG (27.0-31.0); MEAN CORPUSCULAR HGB CONC 33.4 G/DL (33.0-37.0); MEAN CORPUSCULAR VOLUME 86.3 FL (80.0-94.0); MEAN PLATELET VOLUME 7.5 FL (7.4-10.4); PLATELET COUNT 293 /CUMM (130-400); RBC DISTRIBUTION WIDTH 16.5 % (11.5-14.5); RED BLOOD CELL CT 2.75 /CUMM (4.70-6.10); WHITE BLOOD CELL COUNT 10.5 /CUMM (4.8-10.8)
--- NOTE | 2017-02-23 10:41 | NUR ---
SPOKE WITH DAIRY MACHINE OPERATOR FARMWORKER GERALDINE REGARDING PT'S DESIRE TO ADVANCE DIET FROM CLEAR LIQUIDS. DAIRY MACHINE OPERATOR FARMWORKER STATED HE WOULD LOOK INTO ADVANCING BEFORE LUNCH TIME, NEEDED TO SPEAK WITH MD.
--- NOTE | 2017-02-23 10:58 | PN- Housestaff ---
See Addendum Subjective Follow-up For: perirectal fistual Subjective: He is feeling well this morning, hungry. He did have diarrhea twice last night no overt blood. Review of Systems Constitutional: Reports: no symptoms. EENTM: Reports: no symptoms. Cardiovascular: Reports: no symptoms. Respiratory: Reports: no symptoms. Gastrointestinal: Reports: see HPI. Genitourinary: Reports: no symptoms. Musculoskeletal: Reports: no symptoms. Skin: Reports: no symptoms. Neurological/Psychological: Reports: no symptoms. Hematologic/Endocrine: Reports: no symptoms. Immunologic/Allergic: Reports: no symptoms. Objective Last 24 Hrs of Vital Signs/I&O Vital Signs Date Time Temp Pulse Resp B/P B/P Pulse O2 O2 Flow FiO2 Mean Ox Delivery Rate 02/23 0923 78 132/72 02/23 0923 78 132/72 02/23 0800 99 Nasal 1.0L Cannula 02/23 0644 99.3 74 16 126/64 100 Nasal 2.0L Cannula 02/23 0000 97 Nasal 2.0L Cannula 02/22 2251 98.0 73 20 122/71 97 Nasal 2.0L Cannula 02/22 1600 Nasal 2.0L Cannula 02/22 1423 98.7 80 20 125/80 98 02/22 1257 Room Air 02/22 1228 Room Air 02/22 1223 98.7 83 20 130/85 100 02/22 1143 98.2 83 20 118/62 02/22 1112 98.2 83 20 118/62 Intake & Output 02/23 1600 15 0800 02/23 0000 Intake Total 250 740 Output Total 300 1150 Balance -50 -410 Intake, IV 10 20 Intake, Oral 240 720 Number 2 4 Bowel Movements Output, Urine 300 1150 Physical Exam General Appearance: Alert, Oriented X3, Cooperative, No Acute Distress Cardiovascular: Regular Rate, Normal S1, Normal S2 Lungs: expiratory wheezing bilaterally Abdomen: Normal Bowel Sounds, Soft, No Tenderness Extremities: 1+ pitting edema bilaterally Current Medications: Current Medications Sig/Amy Start time Last Medication Dose Route Stop Time Status Admin Acetaminophen 650 MG .STK-MED ONE 02/22 2141 DC PO 02/22 2142 Acetaminophen 650 MG Q6P PRN 02/09 1630 AC 02/22 PO 214 Acetaminophen 1,000 MG Q6P PRN 02/09 1630 AC 02/15 IV 1923 Docusate Sodium 100 MG BID PRN 02/22 0936 AC PO Lisinopril 5 MG DAILY 02/22 1000 AC 02/23 PO 0923 Metoprolol Succinate 25 MG DAILY 02/22 1000 AC 02/23 PO 0923 Metoprolol Tartrate 25 MG .STK-MED ONE 02/22 1115 DC PO 02/22 1116 Polyethylene Glycol 17 GM DAILY PRN 02/22 0936 AC PO Ramelteon 8 MG AT BEDTIME 02/18 2200 AC 02/22 PO 2137 Senna 187 MG AT BEDTIME PRN 02/22 0936 AC PO Sodium Bicarbonate 325 MG 4 TIMES/DAY 02/09 1800 AC 02/23 PO 09 Last 24 Hrs of Lab/Matt Results Last 24 Hrs of Labs/Mics: Laboratory Tests 02/23/17623: CBC w Diff NO MAN DIFF REQ, RBC 2.75 L, MCV 86.3, MCH 28.9, RDW 16.5 H, MPV 7.5, Gran % 73.7, Lymphocytes % 13.4 L, Monocytes % 10.7 H, Eosinophils % 1.6, Basophils % 0.6, Absolute Granulocytes 7.8 H, Absolute Lymphocytes 1.4, Absolute Monocytes 1.1 H, Absolute Eosinophils 0.2, Absolute Basophils 0.1, PUBS MCHC 33.4 Assessment/Plan Assessment: 71yo M with a PMH of 65-[id number]-uote tobacco use, hypertension, hyperlipidemia, chronic kidney disease, chronic anemia, stage II diastolic heart failure ( echocardiogram in 2010) who presented to [place] with an extended period of perirectal and rectal discomfort, occasional bloody stool and spotting. P: 1. Perianal fistula/cellulitus * The patient was found to have a drop in H&H underwent an I&D of the perianal fistula and abscesses on 02/10/2017. Intraoperative acute blood loss anemia requiring 2 units of transfusion and postprocedure stay in the ICU. -We will advance diet to full liquids for lunch. He tolerates well we can advance further per GI recommendations. -He is still having diarrhea so we will do a stool guaiac. No overt blood. We will continue to monitor this. 2. Acute blood loss anemia HD5 the patient passed multiple large clots with resultant hypotension and again transferred to the ICU where he did receive 2 more units of transfusion and underwent a flexible sigmoidoscopy with BiCAP cautery, epinephrine injection and clip placement. 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 * Transfused rbcs x 8 * Stable * Serial CBC monitoring 3. Constipation now resolved CT showed a large amount of stool in the rectum with distention up to 6 cm in transverse diameter suggesting fecal impaction. Mild inflammatory changes posterior to cecum. 4. Left wrist pain * Wrist XR neg for fracture. Degenerative changes noted. * No intervention needed at this time 5. Right knee swelling * XR neg for fracture or acute abnormality * No intervention needed at this time 6. Leukocytosis * stable 7. Chronic kidney disease * Lasix held 8. HTN * Lisinopril resumed to 5mg PO * Metoprolol 25mg Full liquid diet Full code Problem List: 1. GI bleed 2. Fecal impaction 3. Cellulitis of rectal area Pain Ratin Pain Location: no pain Pain Goal: Remain pain free Pain Plan: see a/p Tomorrow's Labs & Rationales: cbc, bep, ca, phos, mg, INR
[2017-02-23 14:31] VITALS: BP 132/68
[2017-02-23 22:18] VITALS: BP 122/60
[2017-02-24 06:34] VITALS: BP 124/62
--- NOTE | 2017-02-24 08:17 | PN- Housestaff ---
See Addendum Subjective Follow-up For: Perirectal fistula/cellulitis Constipation Subjective: No overnight events. This morning he was complaining about his heart healthy diet. He would like sausage and mack. Otherwise he is having no pain. No bowel movements but has been passing gas. No diarrhea. No other issues. Review of Systems Constitutional: Reports: no symptoms. EENTM: Reports: no symptoms. Cardiovascular: Reports: no symptoms. Respiratory: Reports: no symptoms. Gastrointestinal: Reports: see HPI. Genitourinary: Reports: no symptoms. Musculoskeletal: Reports: no symptoms. Skin: Reports: no symptoms. Neurological/Psychological: Reports: no symptoms. Hematologic/Endocrine: Reports: no symptoms. Immunologic/Allergic: Reports: no symptoms. Objective Last 24 Hrs of Vital Signs/I&O Vital Signs Date Time Temp Pulse Resp B/P B/P Pulse O2 O2 Flow FiO2 Mean Ox Delivery Rate 02/24 0836 81 124/64 02/24 0836 124/64 02/24 0634 99.2 82 16 124/62 97 Nasal Cannula 02/23 2326 94 Nasal 1.0L Cannula 02/23 2218 99.0 84 20 122/60 97 Nasal Cannula 02/23 1600 94 Nasal 1.0L Cannula 02/23 1431 98.7 80 20 132/68 99 Intake & Output 02/24 1600 02/24 0800 02/24 0000 Intake Total 260 500 Output Total 550 220 Balance -290 280 Intake, IV 20 20 Intake, Oral 240 480 Output, Urine 550 220 Physical Exam General Appearance: Alert, Oriented X3, Cooperative, No Acute Distress Cardiovascular: Regular Rate, Normal S1, Normal S2 Lungs: Clear to Auscultation Abdomen: Normal Bowel Sounds, Soft, No Tenderness Extremities: No Edema Current Medications: Current Medications Sig/Amy Start time Last Medication Dose Route Stop Time Status Admin Acetaminophen 650 MG .STK-MED ONE 02/23 193 DC PO 02/23 1933 Acetaminophen 650 MG Q6P PRN 02/09 1630 AC 02/24 PO 0313 Acetaminophen 1,000 MG Q6P PRN 02/09 1630 AC 02/15 IV 1923 Docusate Sodium 100 MG BID PRN 02/22 0936 AC PO Lisinopril 5 MG DAILY 02/22 1000 AC 02/24 PO 0836 Metoprolol Succinate 25 MG DAILY 07/14 1000 AC 02/24 PO 0836 Polyethylene Glycol 17 GM DAILY PRN 02/22 0936 AC PO Ramelteon 8 MG AT BEDTIME 02/18 2200 AC 02/23 PO 2044 Senna 187 MG AT BEDTIME PRN 02/22 0936 AC PO Sodium Bicarbonate 325 MG 4 TIMES/DAY 02/09 1800 AC 02/24 PO 0836 Last 24 Hrs of Lab/Matt Results Last 24 Hrs of Labs/Mics: Laboratory Tests 02/24/17 0653: Anion Gap 10, Estimated GFR 19 L, BUN/Creatinine Ratio 11.3, Calcium 7.8 L, Phosphorus 4.5, Magnesium 2.0, PT 14.7 H, INR 1.40 H, CBC w Diff NO MAN DIFF REQ, RBC 2.62 L, MCV 86.5, MCH 28.6, RDW 16.2 H, MPV 7.6, Gran % 74.4, Lymphocytes % 13.3 L, Monocytes % 10.0 H, Eosinophils % 1.8, Basophils % 0.5, Absolute Granulocytes 6.7 H, Absolute Lymphocytes 1.2, Absolute Monocytes 0.9 H, Absolute Eosinophils 0.2, Absolute Basophils 0, PUBS MCHC 33.0 Assessment/Plan Assessment: 71yo M with a PMH of [id number] tobacco use, hypertension, hyperlipidemia, chronic kidney disease, chronic anemia, stage II diastolic heart failure ( echocardiogram in 2010) who presented to [place] with an extended period of perirectal and rectal discomfort, occasional bloody stool and spotting. P: 1. Perianal fistula/cellulitus * The patient was found to have a drop in H&H underwent an I&D of the perianal fistula and abscesses on 02/10/2017. Intraoperative acute blood loss anemia requiring 2 units of transfusion and postprocedure stay in the ICU. -His current diet is heart healthy. We will consider switching to regular based on his preferences. -He is no longer having diarrhea. No bowel movements last night though. We'll continue to monitor. 2. Acute blood loss anemia HD5 the patient passed multiple large clots with resultant hypotension and again transferred to the ICU where he did receive 2 more units of transfusion and underwent a flexible sigmoidoscopy with BiCAP cautery, epinephrine injection and clip placement. 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 * Transfused rbcs x 8 * Stable * Serial CBC monitoring 3. Constipation now resolved CT showed a large amount of stool in the rectum with distention up to 6 cm in transverse diameter suggesting fecal impaction. Mild inflammatory changes posterior to cecum. 4. Left wrist pain * Wrist XR neg for fracture. Degenerative changes noted. * No intervention needed at this time 5. Right knee swelling * XR neg for fracture or acute abnormality * No intervention needed at this time 6. Leukocytosis * stable 7. Chronic kidney disease * Lasix held 8. HTN * Lisinopril resumed to 5mg PO * Metoprolol 25mg Full liquid diet Full code Problem List: 1. GI bleed 2. Cellulitis of rectal area Pain Ratin Pain Location: no pain Pain Goal: Remain pain free Pain Plan: see a/p Tomorrow's Labs & Rationales: cbc, bep
[2017-02-24 08:26] LABS: ABSOLUTE BASOPHIL COUNT 0 /CUMM (0.0-0.2); ABSOLUTE EOSINOPHIL COUNT 0.2 /CUMM (0.0-0.7); ABSOLUTE GRANULOCYTE CT 6.7 /CUMM (1.4-6.5); ABSOLUTE LYMPH COUNT 1.2 /CUMM (1.2-3.4); ABSOLUTE MONOCYTE COUNT 0.9 /CUMM (0.10-0.60); BASOPHIL % 0.5 % (0.0-2.0); EOSINOPHIL % 1.8 % (0-5); GRANULOCYTE % 74.4 % (42.2-75.2); HEMATOCRIT 22.7 % (42-52); MEAN CORPUSCULAR HGB 28.6 PG (27.0-31.0); MEAN CORPUSCULAR VOLUME 86.5 FL (80.0-94.0); MEAN PLATELET VOLUME 7.6 FL (7.4-10.4); PLATELET COUNT 288 /CUMM (130-400); RBC DISTRIBUTION WIDTH 16.2 % (11.5-14.5); RED BLOOD CELL CT 2.62 /CUMM (4.70-6.10)
[2017-02-24 08:30] LABS: PT 14.7 SEC (9.4-12.5)
[2017-02-24 14:47] VITALS: BP 118/54
[2017-02-24 22:20] VITALS: BP 100/60
[2017-02-25 06:37] VITALS: BP 110/60
--- NOTE | 2017-02-25 07:12 | PN- Housestaff ---
KIKA STANLEY,KAMILLE 02/25/17 0711: Subjective Follow-up For: Acute Blood Loss Anemia Perirectal Cellulitis BRBPR Constipation Subjective: Patient was resting comfrortably in his bed. Denies any overnight events, nausea , fever, chills, Diarrhea or Blood per rectum. He has not had a bowel movement since saturday but has been able to pass gas. Review of Systems Constitutional: Denies: no symptoms. EENTM: Denies: no symptoms. Cardiovascular: Denies: no symptoms. Respiratory: Denies: no symptoms. Gastrointestinal: Denies: no symptoms. Genitourinary: Denies: no symptoms. Musculoskeletal: Denies: no symptoms. Skin: Denies: no symptoms. Objective Last 24 Hrs of Vital Signs/I&O Vital Signs Date Time Temp Pulse Resp B/P B/P Pulse O2 O2 Flow FiO2 Mean Ox Delivery Rate 02/25 0637 97.8 68 20 110/60 94 Room Air 02/25 0000 95 Room Air 02/24 2220 98.3 78 20 100/60 95 Room Air 02/24 1600 Room Air 02/24 1447 98.2 81 20 118/54 96 02/24 0900 95 Room Air 02/24 0836 81 124/64 02/24 0836 124/64 Intake & Output 02/25 0800 02/25 0000 02/24 1600 Intake Total 100 1120 800 Output Total 350 930 600 Balance -250 190 200 Intake, IV 120 Intake, Oral 100 1000 800 Output, Urine 350 930 600 Physical Exam General Appearance: Alert, Oriented X3, Cooperative, No Acute Distress Skin: No Rashes, No Breakdown HEENT: Atraumatic, PERRLA, EOMI Neck: Supple, No JVD, No thryomegaly Cardiovascular: Regular Rate, Normal S1, Normal S2 Lungs: Clear to Auscultation, Normal Air Movement Abdomen: Normal Bowel Sounds, Soft, No Tenderness, No Hepatospenomegaly, No Masses Neurological: Normal Speech, Normal Tone, Sensation Intact, Cranial Nerves 3-12 NL Current Medications: Current Medications Sig/Amy Start time Last Medication Dose Route Stop Time Status Admin Acetaminophen 1,000 MG .STK-MED ONE 02/24 1720 DC IV 02/24 1721 Acetaminophen 650 MG Q6P PRN 02/09 1630 AC 02/24 PO 0313 Acetaminophen 1,000 MG Q6P PRN 02/09 1630 AC 02/24 IV 1720 Docusate Sodium 100 MG BID PRN 02/22 0936 AC PO Lisinopril 5 MG DAILY 02/22 1000 AC 02/24 PO 0836 Metoprolol Succinate 25 MG DAILY 02/22 1000 AC 02/24 PO 0836 Morphine Sulfate 2 MG ONCE ONE 02/24 1945 DC 02/24 IV 02/24 Polyethylene Glycol 17 GM DAILY PRN 02/22 0936 AC PO Ramelteon 8 MG AT BEDTIME 02/18 2200 AC 02/24 PO 2044 Senna 187 MG AT BEDTIME PRN 02/22 0936 AC PO Sodium Bicarbonate 325 MG 4 TIMES/DAY 02/09 1800 AC 02/24 PO 2044 Assessment/Plan Assessment: 71yo M with a PMH of 77-[id number] tobacco use, hypertension, hyperlipidemia, chronic kidney disease, chronic anemia, stage II diastolic heart failure ( echocardiogram in 2010) who presented to [place] with an extended period of perirectal and rectal discomfort, occasional bloody stool and spotting. P: 1. Perianal fistula/cellulitus * The patient was found to have a drop in H&H underwent an I&D of the perianal fistula and abscesses on 02/10/2017. Intraoperative acute blood loss anemia requiring 2 units of transfusion and postprocedure stay in the ICU. -His current diet is heart healthy. We will consider switching to regular based on his preferences. -He is no longer having diarrhea. No bowel movements last night though. We'll continue to monitor. Surgery recommends waiting for at least one non-bloody BM before discharge. 2. Acute blood loss anemia HDS the patient passed multiple large clots with resultant hypotension and again transferred to the ICU where he did receive 2 more units of transfusion and underwent a flexible sigmoidoscopy with BiCAP cautery, epinephrine injection and clip placement. 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 * Transfused rbcs x 8 * Stable * Serial CBC monitoring 3. Constipation now resolved CT showed a large amount of stool in the rectum with distention up to 6 cm in transverse diameter suggesting fecal impaction. Mild inflammatory changes posterior to cecum. 4. Left wrist pain * Wrist XR neg for fracture. Degenerative changes noted. * No intervention needed at this time 5. Right knee swelling * XR neg for fracture or acute abnormality * No intervention needed at this time 6. Leukocytosis * stable 7. Chronic kidney disease * Lasix held 8. HTN * Lisinopril resumed to 5mg PO * Metoprolol 25mg Full liquid diet Full code Problem List: 1. Cellulitis of rectal area 2. Perianal fistula 3. Fecal impaction 4. Acute blood loss anemia 5. Right anterior knee pain Pain Ratin Pain Location: None Pain Goal: Remain pain free Pain Plan: Pain Pathway Tomorrow's Labs & Rationales: CBC(ABLA) BOB RENTERIA MD 02/25/17 1327: Attending MD Review Statement Attending Statement Attending MD Statement: examined this patient, discuss w/resident/PA/TERRITORY SALES MANAGER MEDICAL, agreed w/resident/PA/TERRITORY SALES MANAGER MEDICAL, reviewed EMR data (avail) Attending Assessment/Plan: 71M PMH hypertension, hyperlipidemia, chronic kidney disease stage 4 admitted with fecal impaction and perianal fistulae. Went to OR on 02/10/17 for fecal disimpaction and I&D of perianal fistulae. Course complicated by lower GI bleeding, initially transferred to ICU for monitoring, hemodynamically stable and transferred down to general medicine floor over the weekend. On 02/15/17 patient had an episode of acute lower GI bleed with large clots and hypotension requiring emergent IV fluids, pRBC, and flex-sig with rectal vein ablation and ensuing stabilization, monitored in the ICU for 24 hours and transferred back to general medicine. Went back to OR on 02/19 for repeat surgery for stabilization after another lower GI bleed, and has remained stable since. Patient has no complaints today and feels well. No BM for 3 days. Hemodynamically stable, labs reviewed. 1. Perianal fistulae 2. Fecal impaction 3. Lower GI bleed 4. CKD stage 4 Plan - Continue on general medicine - Bowel regimen - Follow colorectal surgery and GI recommendations - Monitor CBC - Continue home medications - If patient has a non-bloody BM can be discharged to [facility] with outpatient colorectal surgery and GI follow up
[2017-02-25 09:54] LABS: ABSOLUTE BASOPHIL COUNT 0.1 /CUMM (0.0-0.2); ABSOLUTE EOSINOPHIL COUNT 0.2 /CUMM (0.0-0.7); ABSOLUTE GRANULOCYTE CT 5.3 /CUMM (1.4-6.5); ABSOLUTE LYMPH COUNT 1.2 /CUMM (1.2-3.4); ABSOLUTE MONOCYTE COUNT 0.6 /CUMM (0.10-0.60); BASOPHIL % 0.8 % (0.0-2.0); EOSINOPHIL % 2.2 % (0-5); GRANULOCYTE % 72.6 % (42.2-75.2); HEMATOCRIT 23.4 % (42-52); MEAN CORPUSCULAR HGB 28.4 PG (27.0-31.0); MEAN CORPUSCULAR HGB CONC 32.8 G/DL (33.0-37.0); MEAN CORPUSCULAR VOLUME 86.8 FL (80.0-94.0); MEAN PLATELET VOLUME 7.3 FL (7.4-10.4); PLATELET COUNT 336 /CUMM (130-400); RBC DISTRIBUTION WIDTH 16.6 % (11.5-14.5); RED BLOOD CELL CT 2.69 /CUMM (4.70-6.10); WHITE BLOOD CELL COUNT 7.3 /CUMM (4.8-10.8)
--- NOTE | 2017-02-25 09:58 | PN- General Surgery ---
Surgical Brief Attending Note Brief Attending Note: Pt seen and examined. He is tolerating diet, positive flatus, no BM yet. AVSS NAD, AAO x3 Abdomen: soft, NT, ND, no rebound/guarding perineal erythema has resolved, setons in place A/P: A 71 year-old man with multiple medical problems - H/H drifting down, but no acute GI bleed - Waiting for colonoscopy path - Cont. sitz baths for perineal fistulae - Leukocytosis has resolved - Would wait for at least one non-bloody BM before discharge - Will cont. to follow as inpatient and outpatient
--- NOTE | 2017-02-25 11:29 | NUR ---
PT'S IV OUTDATED TODAY. STILL FLUSHING WELL AND ABLE TO GET BLOOD RETURN. NO PAIN, REDNESS, OR SWELLING NOTED. SUPERVISOR COLD ROLLING ROGER AT BEDSIDE TO ASSESS IV SITE. NEEDED TO USE ULTRASOUND TO SEE VEIN FOR PLACEMENT OF CURRENT SITE, DIFFICULT STICK. RECOMMENDED TIME EXTENSION. MERCHANDISING DIRECTOR AWARE AND ORDER PLACED.
[2017-02-25 14:28] VITALS: BP 120/70
--- NOTE | 2017-02-25 16:18 | NUR ---
Referral received on February 22 from family preservation caseworker. This patient is a 71 year old man, admitted to the hospital on 02/09/17 with rectal cellulitis. Patient originally spent time in the [facility]; now on general medicine. Referral received to assist with likely T-19 application. Call placed to patients sonFermín Jr. He reports that his parents are legally but had been living together for financial reasons. He reports that his mother does not want him to return home to their apartment, and patient is without a medicare supplement. Meeting scheduled for tomorrow at 10:00am to discuss initiating a T-19 application.
[2017-02-25 21:39] VITALS: BP 120/72
[2017-02-26 06:51] VITALS: BP 134/68
--- NOTE | 2017-02-26 07:19 | PN- Housestaff ---
See Addendum Subjective Follow-up For: Acute Blood Loss Anemia Perirectal Cellulitis BRBPR Constipation Subjective: I have personally seen and examined the patient this morning. Patient was frustrated that he can not sit in the chair because of pain due to surgery. He still has not had a bowel movement since saturday. Otherwise denies any overnight events, fever, chills, nausea, vomiting, SOB or palpitations. Review of Systems Constitutional: Denies: no symptoms. EENTM: Denies: no symptoms. Cardiovascular: Denies: no symptoms. Respiratory: Denies: no symptoms. Gastrointestinal: Denies: no symptoms. Genitourinary: Denies: no symptoms. Musculoskeletal: Denies: no symptoms. Skin: Denies: no symptoms. Objective Last 24 Hrs of Vital Signs/I&O Vital Signs Date Time Temp Pulse Resp B/P B/P Pulse O2 O2 Flow FiO2 Mean Ox Delivery Rate 02/26 0839 70 134/68 02/26 0839 70 134/68 02/26 0651 98.0 70 18 134/68 96 02/25 2139 97.7 91 20 120/72 96 02/25 1428 98.2 60 20 120/70 96 Intake & Output 02/26 1600 02/26 0800 02/26 0000 Intake Total 120 760 Output Total 700 600 Balance -580 160 Intake, IV 10 Intake, Oral 120 750 Output, Urine 700 600 Physical Exam General Appearance: Alert, Oriented X3, Cooperative Skin: No Rashes, No Breakdown HEENT: Atraumatic, PERRLA, EOMI Neck: Supple, No JVD, No thryomegaly Cardiovascular: Regular Rate, Normal S1, Normal S2, No Murmurs Lungs: Clear to Auscultation, Normal Air Movement Abdomen: Normal Bowel Sounds, Soft, No Tenderness, No Hepatospenomegaly Neurological: Normal Gait, Normal Speech, Strength at 5/5 X4 Ext, Normal Tone, Sensation Intact Extremities: No Clubbing, No Cyanosis, Normal Pulses Current Medications: Current Medications Sig/Amy Start time Last Medication Dose Route Stop Time Status Admin Acetaminophen 650 MG Q6P PRN 02/09 1630 AC 02/24 PO 0313 Acetaminophen 1,000 MG Q6P PRN 02/09 1630 AC 02/24 IV 1720 Docusate Sodium 100 MG BID PRN 07/14 0936 AC 02/26 PO 0839 Lisinopril 5 MG DAILY 02/22 1000 AC 02/26 PO 0839 Metoprolol Succinate 25 MG DAILY 02/22 1000 AC 02/26 PO 0839 Patient Medication 1 ED .STK-MED ONE 02/25 1406 FL Teaching ED 02/25 1407 Polyethylene Glycol 17 GM DAILY PRN 02/22 0936 AC 02/26 PO 0839 Ramelteon 8 MG AT BEDTIME 02/18 2200 AC 02/25 PO 2125 Senna 187 MG AT BEDTIME PRN 02/22 0936 AC PO Sodium Bicarbonate 325 MG 4 TIMES/DAY 02/09 1800 AC 02/26 PO 0839 Last 24 Hrs of Lab/Matt Results Last 24 Hrs of Labs/Mics: Laboratory Tests 02/26/17 0658: Anion Gap 9, Estimated GFR 20 L, BUN/Creatinine Ratio 13.5, CBC w Diff NO MAN DIFF REQ, RBC 2.77 L, MCV 86.2, MCH 28.5, RDW 16.1 H, MPV 7.4, Gran % 68.5, Lymphocytes % 18.6 L, Monocytes % 9.5 H, Eosinophils % 3.0, Basophils % 0.4, Absolute Granulocytes 4.8, Absolute Lymphocytes 1.3, Absolute Monocytes 0.7 H, Absolute Eosinophils 0.2, Absolute Basophils 0, PUBS MCHC 33.0 Assessment/Plan Assessment: 71yo M with a PMH of 94-[id number]-[id number] tobacco use, hypertension, hyperlipidemia, chronic kidney disease, chronic anemia, stage II diastolic heart failure ( echocardiogram in 2010) who presented to [place] with an extended period of perirectal and rectal discomfort, occasional bloody stool and spotting. P: 1. Perianal fistula/cellulitus * The patient was found to have a drop in H&H underwent an I&D of the perianal fistula and abscesses on 02/10/2017. Intraoperative acute blood loss anemia requiring 2 units of transfusion and postprocedure stay in the ICU. -His current diet is heart healthy. We will consider switching to regular based on his preferences. -He is no longer having diarrhea. Still No bowel movements last night. We'll continue to monitor. Surgery recommends waiting for at least one non-bloody BM before discharge. 2. Acute blood loss anemia HDS the patient passed multiple large clots with resultant hypotension and again transferred to the ICU where he did receive 2 more units of transfusion and underwent a flexible sigmoidoscopy with BiCAP cautery, epinephrine injection and clip placement. 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 * Transfused rbcs x 8 * Stable * Serial CBC monitoring 3. Constipation now resolved CT showed a large amount of stool in the rectum with distention up to 6 cm in transverse diameter suggesting fecal impaction. Mild inflammatory changes posterior to cecum. 4. Left wrist pain * Wrist XR neg for fracture. Degenerative changes noted. * No intervention needed at this time 5. Right knee swelling * XR neg for fracture or acute abnormality * No intervention needed at this time 6. Leukocytosis * stable 7. Chronic kidney disease * Lasix held 8. HTN * Lisinopril resumed to 5mg PO * Metoprolol 25mg Full liquid diet Full code Problem List: 1. GI bleed 2. Acute blood loss anemia 3. Cellulitis of rectal area Pain Ratin Pain Location: None Pain Goal: Remain pain free Pain Plan: Pain Pathway Tomorrow's Labs & Rationales: CBC(ABLA)
[2017-02-26 08:58] LABS: ABSOLUTE BASOPHIL COUNT 0 /CUMM (0.0-0.2); ABSOLUTE EOSINOPHIL COUNT 0.2 /CUMM (0.0-0.7); ABSOLUTE GRANULOCYTE CT 4.8 /CUMM (1.4-6.5); ABSOLUTE LYMPH COUNT 1.3 /CUMM (1.2-3.4); ABSOLUTE MONOCYTE COUNT 0.7 /CUMM (0.10-0.60); BASOPHIL % 0.4 % (0.0-2.0); GRANULOCYTE % 68.5 % (42.2-75.2); HEMATOCRIT 23.9 % (42-52); MEAN CORPUSCULAR HGB 28.5 PG (27.0-31.0); MEAN CORPUSCULAR VOLUME 86.2 FL (80.0-94.0); MEAN PLATELET VOLUME 7.4 FL (7.4-10.4); PLATELET COUNT 369 /CUMM (130-400); RBC DISTRIBUTION WIDTH 16.1 % (11.5-14.5); RED BLOOD CELL CT 2.77 /CUMM (4.70-6.10); WHITE BLOOD CELL COUNT 7.1 /CUMM (4.8-10.8)
[2017-02-26 14:22] VITALS: BP 120/70
[2017-02-26 22:43] VITALS: BP 118/60
[2017-02-27 06:30] VITALS: BP 138/76
[2017-02-27 09:04] LABS: ABSOLUTE BASOPHIL COUNT 0.1 /CUMM (0.0-0.2); ABSOLUTE EOSINOPHIL COUNT 0.2 /CUMM (0.0-0.7); ABSOLUTE GRANULOCYTE CT 5.1 /CUMM (1.4-6.5); ABSOLUTE LYMPH COUNT 1.5 /CUMM (1.2-3.4); ABSOLUTE MONOCYTE COUNT 0.8 /CUMM (0.10-0.60); BASOPHIL % 0.8 % (0.0-2.0); EOSINOPHIL % 2.7 % (0-5); GRANULOCYTE % 66.7 % (42.2-75.2); HEMATOCRIT 22.5 % (42-52); MEAN CORPUSCULAR HGB 28.6 PG (27.0-31.0); MEAN CORPUSCULAR HGB CONC 33.3 G/DL (33.0-37.0); MEAN CORPUSCULAR VOLUME 85.9 FL (80.0-94.0); MEAN PLATELET VOLUME 7.2 FL (7.4-10.4); PLATELET COUNT 390 /CUMM (130-400); RBC DISTRIBUTION WIDTH 16.4 % (11.5-14.5); RED BLOOD CELL CT 2.62 /CUMM (4.70-6.10); WHITE BLOOD CELL COUNT 7.6 /CUMM (4.8-10.8)
--- NOTE | 2017-02-27 09:07 | PN- Housestaff ---
See Addendum Subjective Follow-up For: Acute Blood Loss Anemia Perirectal Cellulitis BRBPR Constipation Subjective: Patient was frustrated today because he can not have a bowel movement and he has to stay in the hospital for that reason. Otherwise denies any fevers, chills, vomiting, chest pain, SOB or Blood per rectum. Review of Systems Constitutional: Denies: no symptoms. EENTM: Denies: no symptoms. Cardiovascular: Denies: no symptoms. Respiratory: Denies: no symptoms. Gastrointestinal: Denies: no symptoms. Genitourinary: Denies: no symptoms. Musculoskeletal: Denies: no symptoms. Skin: Denies: no symptoms. Objective Last 24 Hrs of Vital Signs/I&O Vital Signs Date Time Temp Pulse Resp B/P B/P Pulse O2 O2 Flow FiO2 Mean Ox Delivery Rate 02/27 1044 80 134/80 02/27 1044 80 134/80 02/27 0831 Room Air 02/27 0630 98.1 83 18 138/76 93 Room Air 02/26 2243 98.3 76 20 118/60 93 Room Air 02/26 1636 Room Air 02/26 1422 98.2 80 20 120/70 94 Intake & Output 02/27 1600 02/27 0800 02/27 0000 Intake Total 240 Output Total 350 500 Balance -350 -260 Intake, Oral 240 Number 0 Bowel Movements Output, Urine 350 500 Physical Exam General Appearance: Alert, Oriented X3, Cooperative, No Acute Distress Other Physical Findings: Skin: No Rashes, No Breakdown HEENT: Atraumatic, PERRLA, EOMI Neck: Supple, No JVD, No thryomegaly Cardiovascular: Regular Rate, Normal S1, Normal S2, No Murmurs Lungs: Clear to Auscultation, Normal Air Movement Abdomen: Normal Bowel Sounds, Soft, No Tenderness, No Hepatospenomegaly Neurological: Normal Gait, Normal Speech, Strength at 5/5 X4 Ext, Normal Tone, Sensation Intact Extremities: No Clubbing, No Cyanosis, Normal Pulses Current Medications: Current Medications Sig/Amy Start time Last Medication Dose Route Stop Time Status Admin Acetaminophen 650 MG Q6P PRN 02/09 1630 AC 02/24 PO 0313 Acetaminophen 1,000 MG Q6P PRN 02/09 1630 AC 02/24 IV 1720 Bisacodyl 10 MG DAILY 02/28 1000 AC PO Bisacodyl 5 MG DAILY 02/26 1415 DC 02/26 PO 1809 Docusate Sodium 100 MG BID 02/26 2200 AC 02/27 PO 1044 Docusate Sodium 100 MG BID PRN 02/22 0936 DC 02/26 PO 02/26 2159 0839 Lisinopril 5 MG DAILY 02/22 1000 AC 02/27 PO 1044 Metoprolol Succinate 25 MG DAILY 02/22 1000 AC 02/27 PO 1044 Polyethylene Glycol 17 GM DAILY 02/27 1000 AC 02/27 PO 1043 Polyethylene Glycol 17 GM DAILY PRN 02/22 0936 DC 02/26 PO 02/27 0959 0839 Ramelteon 8 MG AT BEDTIME 02/18 2200 AC 02/26 PO 2246 Senna 187 MG AT BEDTIME 02/260 AC 02/26 PO 2246 Senna 187 MG AT BEDTIME PRN 02/22 0936 DC PO 02/26 2159 Sodium Bicarbonate 325 MG 4 TIMES/DAY 02/09 1800 AC 02/27 PO 1044 Last 24 Hrs of Lab/Matt Results Last 24 Hrs of Labs/Mics: Laboratory Tests 02/27/17 0700: CBC w Diff NO MAN DIFF REQ, RBC 2.62 L, MCV 85.9, MCH 28.6, RDW 16.4 H, MPV 7.2 L, Gran % 66.7, Lymphocytes % 19.6 L, Monocytes % 10.2 H, Eosinophils % 2.7, Basophils % 0.8, Absolute Granulocytes 5.1, Absolute Lymphocytes 1.5, Absolute Monocytes 0.8 H, Absolute Eosinophils 0.2, Absolute Basophils 0.1, PUBS MCHC 33.3 Assessment/Plan Assessment: 71yo M with a PMH of 57-[id number]-[id number] tobacco use, hypertension, hyperlipidemia, chronic kidney disease, chronic anemia, stage II diastolic heart failure ( echocardiogram in 2010) who presented to [place] with an extended period of perirectal and rectal discomfort, occasional bloody stool and spotting. P: 1. Perianal fistula/cellulitus * The patient was found to have a drop in H&H underwent an I&D of the perianal fistula and abscesses on 02/10/2017. Intraoperative acute blood loss anemia requiring 2 units of transfusion and postprocedure stay in the ICU. -His current diet is heart healthy. We will consider switching to regular based on his preferences. -He is no longer having diarrhea. Still No bowel movements last night. Patient is on a bowel regimen.Increased the dose of dulcolax to 10mg PO. Surgery recommends waiting for at least one non-bloody BM before discharge. 2. Acute blood loss anemia HDS the patient passed multiple large clots with resultant hypotension and again transferred to the ICU where he did receive 2 more units of transfusion and underwent a flexible sigmoidoscopy with BiCAP cautery, epinephrine injection and clip placement. 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 * Transfused rbcs x 8 * Stable * Serial CBC monitoring 3. Constipation now resolved CT showed a large amount of stool in the rectum with distention up to 6 cm in transverse diameter suggesting fecal impaction. Mild inflammatory changes posterior to cecum. 4. Left wrist pain * Wrist XR neg for fracture. Degenerative changes noted. * No intervention needed at this time 5. Right knee swelling * XR neg for fracture or acute abnormality * No intervention needed at this time 6. Leukocytosis * stable 7. Chronic kidney disease * Lasix held 8. HTN * Lisinopril resumed to 5mg PO * Metoprolol 25mg Full liquid diet Full code Problem List: 1. GI bleed 2. Cellulitis of rectal area 3. Fecal impaction 4. Perianal fistula 5. Acute blood loss anemia 6. Right anterior knee pain Pain Ratin Pain Location: None Pain Goal: Remain pain free Pain Plan: [facility] Tomorrow's Labs & Rationales: None
[2017-02-27 14:36] VITALS: BP 120/80
--- NOTE | 2017-02-27 15:59 | RADIOLOGY REPORT ---
EXAMINATION: XR ABDOMEN CLINICAL INDICATION: Fecal impaction. Constipation. COMPARISON: CT scan abdomen pelvis 02/09/2017 TECHNIQUE: AP view of the abdomen. FINDINGS: Moderate volume of stool in colon. Most of the stool is in the left colon. No dilated bowel loop. Nonobstructive bowel pattern. Gas throughout large and small bowel loops. No radiopaque urinary calculus. Vascular calcification of iliac and femoral arteries. Multilevel degenerative change of the spine with endplate spurs of the vertebrae. IMPRESSION: Moderate volume of stool in colon. Nonobstructive bowel pattern.
[2017-02-27 22:33] VITALS: BP 122/64
[2017-02-28 06:48] VITALS: BP 126/70
--- NOTE | 2017-02-28 08:39 | PN- Housestaff ---
Subjective Follow-up For: Acute Blood Loss Anemia Alma-rectal cellulitis Fecal Impaction Subjective: Patient is stable, vitals WNL. Denies any overnight events, fever, chills, addominal pain or SOB. Review of Systems Constitutional: Reports: no symptoms. EENTM: Reports: no symptoms. Cardiovascular: Reports: no symptoms. Respiratory: Reports: no symptoms. Gastrointestinal: Reports: no symptoms. Genitourinary: Reports: no symptoms. Musculoskeletal: Reports: no symptoms. Skin: Reports: no symptoms. Neurological/Psychological: Reports: no symptoms. Hematologic/Endocrine: Reports: no symptoms. Immunologic/Allergic: Reports: no symptoms. Objective Last 24 Hrs of Vital Signs/I&O Vital Signs Date Time Temp Pulse Resp B/P B/P Pulse O2 O2 Flow FiO2 Mean Ox Delivery Rate 02/28 0648 97.9 68 16 126/70 97 Room Air 02/27 2233 99.4 76 20 122/64 94 Room Air 02/27 1436 98.2 80 20 120/80 96 02/27 1044 80 134/80 02/27 1044 80 134/80 Intake & Output 02/28 1600 02/28 0800 02/28 0000 Intake Total 280 Output Total 925 321 Balance -925 -41 Intake, Oral 280 Number 2 1 Bowel Movements Output, Stool 1 Output, Urine 925 320 Physical Exam General Appearance: Alert, Oriented X3, Cooperative, No Acute Distress Other Physical Findings: Skin: No Rashes, No Breakdown HEENT: Atraumatic, PERRLA, EOMI Neck: Supple, No JVD, No thryomegaly Cardiovascular: Regular Rate, Normal S1, Normal S2, No Murmurs Lungs: Clear to Auscultation, Normal Air Movement Abdomen: Normal Bowel Sounds, Soft, No Tenderness, No Hepatospenomegaly Neurological: Normal Gait, Normal Speech, Strength at 5/5 X4 Ext, Normal Tone, Sensation Intact Extremities: No Clubbing, No Cyanosis, Normal Pulses Current Medications: Current Medications Sig/Amy Start time Last Medication Dose Route Stop Time Status Admin Acetaminophen 650 MG Q6P PRN 02/09 1630 AC 02/24 PO 0313 Acetaminophen 1,000 MG Q6P PRN 02/09 1630 AC 02/24 IV 1720 Bisacodyl 10 MG DAILY 02/28 1000 AC 02/28 PO 09 Docusate Sodium 100 MG BID 02/26 2200 AC 02/28 PO 09 Lisinopril 5 MG DAILY 02/22 1000 AC 02/28 PO 09 Magnesium Citrate 300 ML ONE TIME ONE 02/27 1515 DC 02/27 PO 02/27 1516 1830 Metoprolol Succinate 25 MG DAILY 02/22 1000 AC 02/28 PO 09 Patient Medication 1 ED .STK-MED ONE 02/27 1345 ME Teaching ED 02/27 1346 Polyethylene Glycol 17 GM DAILY 02/27 1000 AC 02/28 PO 09 Ramelteon 8 MG AT BEDTIME 02/18 2200 AC 02/27 PO 2117 Senna 187 MG AT BEDTIME 02/26 220 AC 02/27 PO 2117 Sodium Bicarbonate 325 MG 4 TIMES/DAY 02/09 1800 AC 02/28 PO 926 Assessment/Plan Assessment: 71yo M with a PMH of [id number] tobacco use, hypertension, hyperlipidemia, chronic kidney disease, chronic anemia, stage II diastolic heart failure ( echocardiogram in 2010) who presented to [place] with an extended period of perirectal and rectal discomfort, occasional bloody stool and spotting. 1. Acute blood loss anemia HDS the patient passed multiple large clots with resultant hypotension and again transferred to the ICU where he did receive 2 more units of transfusion and underwent a flexible sigmoidoscopy with BiCAP cautery, epinephrine injection and clip placement. 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 * Transfused rbcs x 8 * Stable * Serial CBC monitoring 2. Perianal fistula/cellulitus * The patient was found to have a drop in H&H underwent an I&D of the perianal fistula and abscesses on 02/10/2017. Intraoperative acute blood loss anemia requiring 2 units of transfusion and postprocedure stay in the ICU. -His current diet is heart healthy. We will consider switching to regular based on his preferences. 3. Constipation: Patient had a bowel movement today. He was kept on a bowel regimen to maintain 2 bowel movements per day. Surgery recommends waiting for at least one non-bloody BM before discharge. 4. Left wrist pain * Wrist XR neg for fracture. Degenerative changes noted. * No intervention needed at this time 5. Right knee swelling * XR neg for fracture or acute abnormality * No intervention needed at this time 6. Leukocytosis * stable 7. Chronic kidney disease * Lasix held 8. HTN * Lisinopril resumed to 5mg PO * Metoprolol 25mg Full liquid diet Full code Problem List: 1. GI bleed 2. Cellulitis of rectal area 3. Fecal impaction 4. Perianal fistula 5. Acute blood loss anemia 6. Right anterior knee pain Pain Ratin Pain Location: None Pain Goal: Remain pain free Pain Plan: None Tomorrow's Labs & Rationales: None
--- NOTE | 2017-02-28 09:54 | NUR ---
PATIENT WITH BOWEL MOVEMENT, NO DERECK BLOOD, WAS GUAIAC POSITIVE
[2017-02-28 11:35] VITALS: BP 110/60
--- NOTE | 2017-02-28 16:23 | NUR ---
Late Entry: Aware of patients discharge today to [facility]. I met with patients son, Jr. Fermín and the patients ex-, Yazmin Erickson on Saturday, 02/26. We initiated the T-19 application process with minimal documentation, and application was placed in mail today to [facility] in [place].
== END 2017-02-28 12:30 | DRG 330 ==
LOC: ERH 12:03 → CRI 15:33 → 2NB 15:33 → 2NA 15:33 → ERHI 15:33 → ENRESERV 15:52 → ENTRNSPT 17:13 → CRI 17:34 → 2NB 17:35 → CMPTRNSPT 17:48 → 2NB 02-10 07:22 → CRI 02-10 16:22 → ENRESERV 02-10 16:30 → ENTRNSPT 02-10 17:03 → CMPTRNSPT 02-10 17:28 → CRI 02-11 09:16 → 2NB 02-12 14:00 → CRI 02-14 14:19 → 2NA 02-15 13:12 → CRI 02-19 09:40 → ENTRNSPT 02-19 16:06 → EDTRNSPT 02-19 17:45 → CMPTRNSPT 02-19 21:07 → 1NO 02-21 20:04 → 2NA 02-22 11:54 → ENPENDDIS 02-28 09:36 → 2NA 02-28 12:30
PROVIDERS: Internal Medicine; Internal Medicine Cardiovascular Disease; Internal Medicine Endocrinology, Diabetes & Metabolism; Internal Medicine Hematology & Oncology; Physician Assistant; Preventive Medicine Public Health & General Preventive Medicine; Student in an Organized Health Care Education/Training Program; ADMIT Internal Medicine
PROC: 30233N1 Transfusion of Nonautologous Red Blood Cells into Peripheral Vein, Percutaneous Approach (ICD-10-PCS; principal; 2017-02-10)
PROC: 0W9M00Z Drainage of Male Perineum with Drainage Device, Open Approach (ICD-10-PCS; 2017-02-10)
PROC: 0DBN8ZX Excision of Sigmoid Colon, Via Natural or Artificial Opening Endoscopic, Diagnostic (ICD-10-PCS; 2017-02-14)
PROC: 0DBL8ZX Excision of Transverse Colon, Via Natural or Artificial Opening Endoscopic, Diagnostic (ICD-10-PCS; 2017-02-14)
PROC: 0DBK8ZX Excision of Ascending Colon, Via Natural or Artificial Opening Endoscopic, Diagnostic (ICD-10-PCS; 2017-02-14)
PROC: 0DBM8ZX Excision of Descending Colon, Via Natural or Artificial Opening Endoscopic, Diagnostic (ICD-10-PCS; 2017-02-14)
PROC: 0WC Anatomical Regions, General, Extirpation (ICD-10-PCS; 2017-02-14)
PROC: 0DQP0ZZ Repair Rectum, Open Approach (ICD-10-PCS; 2017-02-19)
DX: K61.2 Anorectal abscess (principal); I13.0 Hypertensive heart and chronic kidney disease with heart failure and stage 1 through stage 4 chronic kidney disease, or unspecified chronic kidney disease; N18.4 Chronic kidney disease, stage 4 (severe); E87.2 Acidosis; I95.9 Hypotension, unspecified; I50.32 Chronic diastolic (congestive) heart failure; D62 Acute posthemorrhagic anemia; K62.5 Hemorrhage of anus and rectum; K62.6 Ulcer of anus and rectum; E20.9 Hypoparathyroidism, unspecified; E78.5 Hyperlipidemia, unspecified; F17.210 Nicotine dependence, cigarettes, uncomplicated; M17.11 Unilateral primary osteoarthritis, right knee; N20.0 Calculus of kidney; I70.0 Atherosclerosis of aorta; N28.1 Cyst of kidney, acquired; K56.41 Fecal impaction; Z91.19 Patient's noncompliance with other medical treatment and regimen; D17.79 Benign lipomatous neoplasm of other sites; K57.30 Diverticulosis of large intestine without perforation or abscess without bleeding
CPT/HCPCS: 1NSP; 2NAP; 2NBP; 2NBSP; CCU; 36415; 73100-LT; 73562-RT; 74000; 74176; 81001; 82436; 86920; 87040; 87086; 88304; 88305; 93005; 93010; 96361; 96374; 96375; 97110-GO; 97116-GO; 97161-GP; 97164-GP; 97165-GO; 97530-GO; A9512; A9538; C9399; J0131; J0171; J2270; J7040; P9016